=== PATIENT | female | born 1990 | race Caucasian/White ===

== ENCOUNTER 2020-01-06 17:10 | Outpatient (REF) | payer MEDICARE, MEDICAID, SELFPAY ==
[2020-01-06 18:12] LABS: Amphetamine Screen Urine Not Detected (Not Detect); Barbiturates, Urine Not Detected (Not Detect); Benzodiazepines Screen Urine Not Detected (Not Detect); Cannabinoid Screen Urine Not Detected (Not Detect); Cocaine Screen Urine Not Detected (Not Detect); Opiate Screen Urine Not Detected (Not Detect); Phencyclidine Screen Urine Not Detected (Not Detect)
== END 2020-01-06 17:11 | disposition home or self-care (01) ==
LOC: HO.LAB 17:10
PROVIDERS: PCP Internal Medicine; Visit Provider Internal Medicine
DX: F19.11 Other psychoactive substance abuse, in remission (principal); Z79.891 Long term (current) use of opiate analgesic; Z51.81 Encounter for therapeutic drug level monitoring
CPT/HCPCS: 36415; 80307

== ENCOUNTER → 2020-01-09 13:23 | Outpatient (BNVA) | payer MEDICARE, MEDICAID, SELFPAY | PROVIDERS: PCP Internal Medicine; Referring Provider Internal Medicine; Visit Provider Dietitian, Registered | DX: Z76.89 Persons encountering health services in other specified circumstances (principal) ==

== ENCOUNTER 2020-01-16 17:14 | Outpatient (REF) | payer MEDICARE, MEDICAID, SELFPAY ==
[2020-01-16 18:08] LABS: Amphetamine Screen Urine Not Detected (Not Detect); Barbiturates, Urine Not Detected (Not Detect); Benzodiazepines Screen Urine Not Detected (Not Detect); Cannabinoid Screen Urine Not Detected (Not Detect); Cocaine Screen Urine Not Detected (Not Detect); Opiate Screen Urine Not Detected (Not Detect); Phencyclidine Screen Urine Not Detected (Not Detect)
== END 2020-01-16 17:15 | disposition home or self-care (01) ==
LOC: HO.LAB 17:14
PROVIDERS: PCP Internal Medicine; Visit Provider Internal Medicine
DX: F19.11 Other psychoactive substance abuse, in remission (principal)
CPT/HCPCS: 80307

== ENCOUNTER 2020-01-23 15:22 | Outpatient (REF) | payer MEDICARE, MEDICAID, SELFPAY ==
[2020-01-23 16:40] LABS: Amphetamine Screen Urine Not Detected (Not Detect); Barbiturates, Urine Not Detected (Not Detect); Benzodiazepines Screen Urine Not Detected (Not Detect); Cannabinoid Screen Urine Not Detected (Not Detect); Cocaine Screen Urine Not Detected (Not Detect); Opiate Screen Urine Not Detected (Not Detect); Phencyclidine Screen Urine Not Detected (Not Detect)
== END 2020-01-23 15:23 | disposition home or self-care (01) ==
LOC: HO.LAB 15:22
PROVIDERS: PCP Internal Medicine; Visit Provider Internal Medicine
DX: Z87.898 Personal history of other specified conditions (principal)
CPT/HCPCS: 80307

== ENCOUNTER 2020-01-28 17:56 | Outpatient (REF) | payer MEDICARE, MEDICAID, SELFPAY | END 2020-01-28 17:57 | disposition home or self-care (01) | LOC: HO.LAB 17:56 | PROVIDERS: PCP Internal Medicine; Visit Provider Internal Medicine | DX: Z13.89 Encounter for screening for other disorder (principal) ==

== ENCOUNTER 2020-01-30 16:36 | Outpatient (REF) | payer MEDICARE, MEDICAID, SELFPAY ==
[2020-01-30 18:22] LABS: Amphetamine Screen Urine Not Detected (Not Detect); Barbiturates, Urine Not Detected (Not Detect); Benzodiazepines Screen Urine Not Detected (Not Detect); Cannabinoid Screen Urine Not Detected (Not Detect); Cocaine Screen Urine Not Detected (Not Detect); Opiate Screen Urine Not Detected (Not Detect); Phencyclidine Screen Urine Not Detected (Not Detect)
== END 2020-01-30 16:37 | disposition home or self-care (01) ==
LOC: HO.LABR 16:36
PROVIDERS: Visit Provider Internal Medicine
DX: Z87.898 Personal history of other specified conditions (principal)
CPT/HCPCS: 80307

== ENCOUNTER 2020-02-05 17:48 | Outpatient (REF) | payer MEDICARE, MEDICAID, SELFPAY ==
[2020-02-05 19:33] LABS: Amphetamine Screen Urine Not Detected (Not Detect); Barbiturates, Urine Not Detected (Not Detect); Benzodiazepines Screen Urine Not Detected (Not Detect); Cannabinoid Screen Urine Not Detected (Not Detect); Cocaine Screen Urine Not Detected (Not Detect); Opiate Screen Urine Not Detected (Not Detect); Phencyclidine Screen Urine Not Detected (Not Detect)
== END 2020-02-05 17:49 | disposition home or self-care (01) ==
LOC: HO.LABR 17:48
PROVIDERS: PCP Internal Medicine; Visit Provider Physician Assistant
DX: Z87.898 Personal history of other specified conditions (principal)
CPT/HCPCS: 80307

== ENCOUNTER 2020-02-14 16:11 | Outpatient (REF) | payer MEDICARE, MEDICAID, SELFPAY ==
[2020-02-14 17:13] LABS: Amphetamine Screen Urine Not Detected (Not Detect); Barbiturates, Urine Not Detected (Not Detect); Benzodiazepines Screen Urine Not Detected (Not Detect); Cannabinoid Screen Urine Not Detected (Not Detect); Cocaine Screen Urine Not Detected (Not Detect); Opiate Screen Urine Not Detected (Not Detect); Phencyclidine Screen Urine Not Detected (Not Detect)
== END 2020-02-14 16:12 | disposition home or self-care (01) ==
LOC: HO.LAB 16:11
PROVIDERS: PCP Internal Medicine; Visit Provider Internal Medicine
DX: Z79.899 Other long term (current) drug therapy (principal)
CPT/HCPCS: 80307

== ENCOUNTER 2020-02-26 16:15 | Outpatient (REF) | payer MEDICARE, MEDICAID, SELFPAY ==
[2020-02-26 17:10] LABS: Amphetamine Screen Urine Not Detected (Not Detect); Barbiturates, Urine Not Detected (Not Detect); Benzodiazepines Screen Urine Not Detected (Not Detect); Cannabinoid Screen Urine Not Detected (Not Detect); Cocaine Screen Urine Not Detected (Not Detect); Opiate Screen Urine Not Detected (Not Detect); Phencyclidine Screen Urine Not Detected (Not Detect)
== END 2020-02-26 16:16 | disposition home or self-care (01) ==
LOC: HO.LAB 16:15
PROVIDERS: PCP Internal Medicine; Visit Provider Internal Medicine
DX: Z87.898 Personal history of other specified conditions (principal)
CPT/HCPCS: 80307

== ENCOUNTER 2020-03-03 17:03 | Outpatient (REF) | payer MEDICARE, MEDICAID, SELFPAY ==
[2020-03-03 18:39] LABS: Amphetamine Screen Urine Not Detected (Not Detect); Barbiturates, Urine Not Detected (Not Detect); Benzodiazepines Screen Urine Not Detected (Not Detect); Cannabinoid Screen Urine Not Detected (Not Detect); Cocaine Screen Urine Not Detected (Not Detect); Opiate Screen Urine Not Detected (Not Detect); Phencyclidine Screen Urine Not Detected (Not Detect)
== END 2020-03-03 17:04 | disposition home or self-care (01) ==
LOC: HO.LABR 17:03
PROVIDERS: PCP Internal Medicine; Visit Provider Internal Medicine
DX: Z87.898 Personal history of other specified conditions (principal)
CPT/HCPCS: 80307

== ENCOUNTER 2020-03-11 10:59 | Outpatient (REF) | payer MEDICARE, MEDICAID, SELFPAY ==
[2020-03-11 13:19] LABS: Amphetamine Screen Urine Not Detected (Not Detect); Barbiturates, Urine Not Detected (Not Detect); Benzodiazepines Screen Urine Not Detected (Not Detect); Cannabinoid Screen Urine Not Detected (Not Detect); Cocaine Screen Urine Not Detected (Not Detect); Opiate Screen Urine Not Detected (Not Detect); Phencyclidine Screen Urine Not Detected (Not Detect)
== END 2020-03-11 11:00 | disposition home or self-care (01) ==
LOC: HO.LABR 10:59
PROVIDERS: PCP Internal Medicine; Visit Provider Internal Medicine
DX: Z87.898 Personal history of other specified conditions (principal)
CPT/HCPCS: 80307

== ENCOUNTER 2020-03-17 13:34 | Outpatient (REF) | payer MEDICARE, MEDICAID, SELFPAY ==
[2020-03-17 14:47] LABS: Amphetamine Screen Urine Not Detected (Not Detect); Barbiturates, Urine Not Detected (Not Detect); Benzodiazepines Screen Urine Not Detected (Not Detect); Cannabinoid Screen Urine Not Detected (Not Detect); Cocaine Screen Urine Not Detected (Not Detect); Opiate Screen Urine Not Detected (Not Detect); Phencyclidine Screen Urine Not Detected (Not Detect)
== END 2020-03-17 13:35 | disposition home or self-care (01) ==
LOC: HO.LABR 13:34
PROVIDERS: PCP Internal Medicine; Visit Provider Internal Medicine
DX: Z87.898 Personal history of other specified conditions (principal)
CPT/HCPCS: 80307

== ENCOUNTER 2020-03-24 06:30 | Outpatient (REF) | payer MEDICARE, MEDICAID, SELFPAY ==
[2020-03-24 07:35] LABS: Amphetamine Screen Urine Not Detected (Not Detect); Barbiturates, Urine Not Detected (Not Detect); Benzodiazepines Screen Urine Not Detected (Not Detect); Cannabinoid Screen Urine Not Detected (Not Detect); Cocaine Screen Urine Not Detected (Not Detect); Opiate Screen Urine Not Detected (Not Detect); Phencyclidine Screen Urine Not Detected (Not Detect)
== END 2020-03-24 06:31 | disposition home or self-care (01) ==
LOC: HO.LABR 06:30
PROVIDERS: PCP Internal Medicine; Visit Provider Internal Medicine
DX: Z87.898 Personal history of other specified conditions (principal)
CPT/HCPCS: 80307

== ENCOUNTER 2020-03-30 17:43 | Outpatient (REF) | payer MEDICARE, MEDICAID, SELFPAY ==
[2020-03-30 18:50] LABS: Amphetamine Screen Urine Not Detected (Not Detect); Barbiturates, Urine Not Detected (Not Detect); Benzodiazepines Screen Urine Not Detected (Not Detect); Cannabinoid Screen Urine Not Detected (Not Detect); Cocaine Screen Urine Not Detected (Not Detect); Opiate Screen Urine Not Detected (Not Detect); Phencyclidine Screen Urine Not Detected (Not Detect)
== END 2020-03-30 17:44 | disposition home or self-care (01) ==
LOC: HO.LABR 17:43
PROVIDERS: PCP Internal Medicine; Visit Provider Internal Medicine
DX: Z03.89 Encounter for observation for other suspected diseases and conditions ruled out (principal)
CPT/HCPCS: 80307

== ENCOUNTER 2020-04-06 17:22 | Outpatient (REF) | payer MEDICARE, MEDICAID, SELFPAY ==
[2020-04-06 18:21] LABS: Amphetamine Screen Urine Not Detected (Not Detect); Barbiturates, Urine Not Detected (Not Detect); Benzodiazepines Screen Urine Not Detected (Not Detect); Cannabinoid Screen Urine Not Detected (Not Detect); Cocaine Screen Urine Not Detected (Not Detect); Opiate Screen Urine Not Detected (Not Detect); Phencyclidine Screen Urine Not Detected (Not Detect)
== END 2020-04-06 17:23 | disposition home or self-care (01) ==
LOC: HO.LABR 17:22
PROVIDERS: PCP Internal Medicine; Visit Provider Internal Medicine
DX: Z87.898 Personal history of other specified conditions (principal)
CPT/HCPCS: 80307

== ENCOUNTER 2020-04-17 14:14 | Outpatient (REF) | payer MEDICARE, MEDICAID, SELFPAY ==
[2020-04-17 15:25] LABS: Amphetamine Screen Urine Not Detected (Not Detect); Barbiturates, Urine Not Detected (Not Detect); Benzodiazepines Screen Urine Not Detected (Not Detect); Cannabinoid Screen Urine Not Detected (Not Detect); Cocaine Screen Urine Not Detected (Not Detect); Opiate Screen Urine Not Detected (Not Detect); Phencyclidine Screen Urine Not Detected (Not Detect)
== END 2020-04-17 14:15 | disposition home or self-care (01) ==
LOC: HO.LABR 14:14
PROVIDERS: PCP Internal Medicine; Visit Provider Internal Medicine
DX: Z03.89 Encounter for observation for other suspected diseases and conditions ruled out (principal)
CPT/HCPCS: 80307

== ENCOUNTER 2020-04-20 15:35 | Outpatient (REF) | payer MEDICARE, MEDICAID, SELFPAY | END 2020-04-20 15:36 | disposition home or self-care (01) | LOC: HO.LABR 15:35 | PROVIDERS: PCP Internal Medicine; Visit Provider Internal Medicine | DX: Z13.89 Encounter for screening for other disorder (principal) | CPT/HCPCS: 80307 ==

== ENCOUNTER 2020-05-01 12:51 | Outpatient (REF) | payer MEDICARE, MEDICAID, SELFPAY ==
[2020-05-01 14:21] LABS: Amphetamine Screen Urine Not Detected (Not Detect); Barbiturates, Urine Not Detected (Not Detect); Benzodiazepines Screen Urine Not Detected (Not Detect); Cannabinoid Screen Urine Not Detected (Not Detect); Cocaine Screen Urine Not Detected (Not Detect); Opiate Screen Urine Not Detected (Not Detect); Phencyclidine Screen Urine Not Detected (Not Detect)
== END 2020-05-01 12:52 | disposition home or self-care (01) ==
LOC: HO.LABR 12:51
PROVIDERS: Visit Provider Internal Medicine
DX: Z03.89 Encounter for observation for other suspected diseases and conditions ruled out (principal)
CPT/HCPCS: 80307

== ENCOUNTER 2020-05-04 08:18 | Outpatient (REF) | payer MEDICARE, MEDICAID, SELFPAY ==
[2020-05-04 09:23] LABS: Amphetamine Screen Urine Not Detected (Not Detect); Barbiturates, Urine Not Detected (Not Detect); Benzodiazepines Screen Urine Not Detected (Not Detect); Cannabinoid Screen Urine Not Detected (Not Detect); Cocaine Screen Urine Not Detected (Not Detect); Opiate Screen Urine Not Detected (Not Detect); Phencyclidine Screen Urine Not Detected (Not Detect)
== END 2020-05-04 08:19 | disposition home or self-care (01) ==
LOC: HO.LABR 08:18
PROVIDERS: Visit Provider Internal Medicine
DX: Z03.89 Encounter for observation for other suspected diseases and conditions ruled out (principal)
CPT/HCPCS: 80307

== ENCOUNTER 2020-05-13 08:18 | Outpatient (REF) | payer MEDICARE, MEDICAID, SELFPAY ==
[2020-05-13 10:19] LABS: Amphetamine Screen Urine Not Detected (Not Detect); Barbiturates, Urine Not Detected (Not Detect); Benzodiazepines Screen Urine Not Detected (Not Detect); Cannabinoid Screen Urine Not Detected (Not Detect); Cocaine Screen Urine Not Detected (Not Detect); Opiate Screen Urine Not Detected (Not Detect); Phencyclidine Screen Urine Not Detected (Not Detect)
== END 2020-05-13 08:19 | disposition home or self-care (01) ==
LOC: HO.LABR 08:18
PROVIDERS: PCP Internal Medicine; Visit Provider Internal Medicine
DX: Z03.89 Encounter for observation for other suspected diseases and conditions ruled out (principal)
CPT/HCPCS: 80307

== ENCOUNTER 2020-05-19 11:26 | Outpatient (REF) | payer MEDICARE, MEDICAID, SELFPAY ==
[2020-05-19 13:19] LABS: Amphetamine Screen Urine Not Detected (Not Detect); Barbiturates, Urine Not Detected (Not Detect); Benzodiazepines Screen Urine Not Detected (Not Detect); Cannabinoid Screen Urine Not Detected (Not Detect); Cocaine Screen Urine Not Detected (Not Detect); Opiate Screen Urine Not Detected (Not Detect); Phencyclidine Screen Urine Not Detected (Not Detect)
== END 2020-05-19 11:27 | disposition home or self-care (01) ==
LOC: HO.LAB 11:26
PROVIDERS: PCP Internal Medicine; Visit Provider Internal Medicine
DX: Z03.89 Encounter for observation for other suspected diseases and conditions ruled out (principal)
CPT/HCPCS: 80307

== ENCOUNTER 2020-05-25 13:32 | Outpatient (REF) | payer MEDICARE, MEDICAID, SELFPAY ==
[2020-05-25 15:12] LABS: Amphetamine Screen Urine Not Detected (Not Detect); Barbiturates, Urine Not Detected (Not Detect); Benzodiazepines Screen Urine Not Detected (Not Detect); Cannabinoid Screen Urine Not Detected (Not Detect); Cocaine Screen Urine Not Detected (Not Detect); Opiate Screen Urine Not Detected (Not Detect); Phencyclidine Screen Urine Not Detected (Not Detect)
== END 2020-05-25 13:33 | disposition home or self-care (01) ==
LOC: HO.LABR 13:32
PROVIDERS: PCP Internal Medicine; Visit Provider Internal Medicine
DX: Z03.89 Encounter for observation for other suspected diseases and conditions ruled out (principal)
CPT/HCPCS: 80307

== ENCOUNTER 2020-06-02 11:40 | Outpatient (REF) | payer MEDICARE, MEDICAID, SELFPAY ==
[2020-06-02 13:03] LABS: Amphetamine Screen Urine Not Detected (Not Detect); Barbiturates, Urine Not Detected (Not Detect); Cannabinoid Screen Urine Not Detected (Not Detect); Cocaine Screen Urine Not Detected (Not Detect); Opiate Screen Urine Not Detected (Not Detect); Phencyclidine Screen Urine Not Detected (Not Detect)
[2020-06-02 13:07] LABS: Benzodiazepines Screen Urine Not Detected (Not Detect)
== END 2020-06-02 11:41 | disposition home or self-care (01) ==
LOC: HO.LABR 11:40
PROVIDERS: PCP Internal Medicine; Visit Provider Internal Medicine
DX: Z03.89 Encounter for observation for other suspected diseases and conditions ruled out (principal)
CPT/HCPCS: 80307

== ENCOUNTER 2020-06-12 09:13 | Outpatient (REF) | payer MEDICARE, MEDICAID, SELFPAY ==
[2020-06-12 10:46] LABS: Amphetamine Screen Urine Not Detected (Not Detect); Barbiturates, Urine Not Detected (Not Detect); Benzodiazepines Screen Urine Not Detected (Not Detect); Cannabinoid Screen Urine Not Detected (Not Detect); Cocaine Screen Urine Not Detected (Not Detect); Opiate Screen Urine Not Detected (Not Detect); Phencyclidine Screen Urine Not Detected (Not Detect)
== END 2020-06-12 09:14 | disposition home or self-care (01) ==
LOC: HO.LABR 09:13
PROVIDERS: PCP Internal Medicine; Visit Provider Internal Medicine
DX: Z03.89 Encounter for observation for other suspected diseases and conditions ruled out (principal)
CPT/HCPCS: 80307

== ENCOUNTER 2020-06-19 09:42 | Outpatient (REF) | payer MEDICARE, MEDICAID, SELFPAY ==
[2020-06-19 11:24] LABS: Amphetamine Screen Urine Not Detected (Not Detect); Barbiturates, Urine Not Detected (Not Detect); Benzodiazepines Screen Urine Not Detected (Not Detect); Cannabinoid Screen Urine Not Detected (Not Detect); Cocaine Screen Urine Not Detected (Not Detect); Opiate Screen Urine Not Detected (Not Detect); Phencyclidine Screen Urine Not Detected (Not Detect)
== END 2020-06-19 09:43 | disposition home or self-care (01) ==
LOC: HO.LABR 09:42
PROVIDERS: PCP Internal Medicine; Visit Provider Internal Medicine
DX: Z03.89 Encounter for observation for other suspected diseases and conditions ruled out (principal)
CPT/HCPCS: 80307

== ENCOUNTER 2020-06-24 11:56 | Outpatient (REF) | payer MEDICARE, MEDICAID, SELFPAY ==
[2020-06-24 14:50] LABS: Amphetamine Screen Urine Not Detected (Not Detect); Barbiturates, Urine Not Detected (Not Detect); Benzodiazepines Screen Urine Not Detected (Not Detect); Cannabinoid Screen Urine Not Detected (Not Detect); Cocaine Screen Urine Not Detected (Not Detect); Opiate Screen Urine Not Detected (Not Detect); Phencyclidine Screen Urine Not Detected (Not Detect)
== END 2020-06-24 11:57 | disposition home or self-care (01) ==
LOC: HO.LABR 11:56
PROVIDERS: PCP Internal Medicine; Visit Provider Internal Medicine
DX: Z03.89 Encounter for observation for other suspected diseases and conditions ruled out (principal)
CPT/HCPCS: 80307

== ENCOUNTER 2020-06-29 11:11 | Outpatient (REF) | payer MEDICARE, MEDICAID, SELFPAY ==
[2020-06-29 13:32] LABS: Amphetamine Screen Urine Not Detected (Not Detect); Barbiturates, Urine Not Detected (Not Detect); Benzodiazepines Screen Urine Not Detected (Not Detect); Cannabinoid Screen Urine Not Detected (Not Detect); Cocaine Screen Urine Not Detected (Not Detect); Opiate Screen Urine Not Detected (Not Detect); Phencyclidine Screen Urine Not Detected (Not Detect)
== END 2020-06-29 11:12 | disposition home or self-care (01) ==
LOC: HO.LABR 11:11
PROVIDERS: PCP Internal Medicine; Visit Provider Internal Medicine
DX: Z03.89 Encounter for observation for other suspected diseases and conditions ruled out (principal)
CPT/HCPCS: 80307

== ENCOUNTER 2020-07-07 12:10 | Outpatient (REF) | payer MEDICARE, MEDICAID, SELFPAY ==
[2020-07-07 13:48] LABS: Amphetamine Screen Urine Not Detected (Not Detect); Barbiturates, Urine Not Detected (Not Detect); Benzodiazepines Screen Urine Not Detected (Not Detect); Cannabinoid Screen Urine Not Detected (Not Detect); Cocaine Screen Urine Not Detected (Not Detect); Opiate Screen Urine Not Detected (Not Detect); Phencyclidine Screen Urine Not Detected (Not Detect)
== END 2020-07-07 12:11 | disposition home or self-care (01) ==
LOC: HO.LABR 12:10
PROVIDERS: PCP Internal Medicine; Visit Provider Internal Medicine
DX: Z03.89 Encounter for observation for other suspected diseases and conditions ruled out (principal)
CPT/HCPCS: 80307

== ENCOUNTER 2020-07-17 09:19 | Outpatient (REF) | payer MEDICARE, MEDICAID, SELFPAY ==
[2020-07-17 10:47] LABS: Amphetamine Screen Urine Not Detected (Not Detect); Barbiturates, Urine Not Detected (Not Detect); Benzodiazepines Screen Urine Not Detected (Not Detect); Cannabinoid Screen Urine Not Detected (Not Detect); Cocaine Screen Urine Not Detected (Not Detect); Opiate Screen Urine Not Detected (Not Detect); Phencyclidine Screen Urine Not Detected (Not Detect)
== END 2020-07-17 09:20 | disposition home or self-care (01) ==
LOC: HO.LABR 09:19
PROVIDERS: PCP Internal Medicine; Visit Provider Internal Medicine
DX: Z03.89 Encounter for observation for other suspected diseases and conditions ruled out (principal)
CPT/HCPCS: 80307

== ENCOUNTER 2020-07-24 12:21 | Outpatient (REF) | payer MEDICARE, MEDICAID, SELFPAY ==
[2020-07-24 14:59] LABS: Amphetamine Screen Urine Not Detected (Not Detect); Barbiturates, Urine Not Detected (Not Detect); Benzodiazepines Screen Urine Not Detected (Not Detect); Cannabinoid Screen Urine Not Detected (Not Detect); Cocaine Screen Urine Not Detected (Not Detect); Opiate Screen Urine Not Detected (Not Detect); Phencyclidine Screen Urine Not Detected (Not Detect)
== END 2020-07-24 12:22 | disposition home or self-care (01) ==
LOC: HO.LABR 12:21
PROVIDERS: Visit Provider Internal Medicine
DX: Z03.89 Encounter for observation for other suspected diseases and conditions ruled out (principal)
CPT/HCPCS: 80307

== ENCOUNTER 2020-07-28 06:09 | Outpatient (REF) | payer MEDICARE, MEDICAID, SELFPAY ==
[2020-07-28 09:17] LABS: Amphetamine Screen Urine Not Detected (Not Detect); Barbiturates, Urine Not Detected (Not Detect); Benzodiazepines Screen Urine Not Detected (Not Detect); Cannabinoid Screen Urine Not Detected (Not Detect); Cocaine Screen Urine Not Detected (Not Detect); Opiate Screen Urine Not Detected (Not Detect); Phencyclidine Screen Urine Not Detected (Not Detect)
== END 2020-07-28 06:10 | disposition home or self-care (01) ==
LOC: HO.LABR 06:09
PROVIDERS: PCP Internal Medicine; Visit Provider Internal Medicine
DX: Z03.89 Encounter for observation for other suspected diseases and conditions ruled out (principal)
CPT/HCPCS: 80307

== ENCOUNTER 2020-08-07 09:14 | Outpatient (REF) | payer MEDICARE, MEDICAID, SELFPAY ==
[2020-08-07 10:45] LABS: Amphetamine Screen Urine Not Detected (Not Detect); Barbiturates, Urine Not Detected (Not Detect); Benzodiazepines Screen Urine Not Detected (Not Detect); Cannabinoid Screen Urine Not Detected (Not Detect); Cocaine Screen Urine Not Detected (Not Detect); Opiate Screen Urine Not Detected (Not Detect); Phencyclidine Screen Urine Not Detected (Not Detect)
== END 2020-08-07 09:15 | disposition home or self-care (01) ==
LOC: HO.LABR 09:14
PROVIDERS: PCP Internal Medicine; Visit Provider Internal Medicine
DX: Z03.89 Encounter for observation for other suspected diseases and conditions ruled out (principal)
CPT/HCPCS: 80307

== ENCOUNTER 2020-08-13 14:26 | Outpatient (REF) | payer MEDICARE, MEDICAID, SELFPAY ==
[2020-08-13 15:42] LABS: Amphetamine Screen Urine Not Detected (Not Detect); Barbiturates, Urine Not Detected (Not Detect); Benzodiazepines Screen Urine Not Detected (Not Detect); Cannabinoid Screen Urine Not Detected (Not Detect); Cocaine Screen Urine Not Detected (Not Detect); Opiate Screen Urine Not Detected (Not Detect); Phencyclidine Screen Urine Not Detected (Not Detect)
== END 2020-08-13 14:27 | disposition home or self-care (01) ==
LOC: HO.LABR 14:26
PROVIDERS: PCP Internal Medicine; Visit Provider Internal Medicine
DX: Z03.89 Encounter for observation for other suspected diseases and conditions ruled out (principal)
CPT/HCPCS: 80307

== ENCOUNTER 2020-08-20 10:10 | Outpatient (REF) | payer MEDICARE, MEDICAID, SELFPAY ==
[2020-08-20 11:24] LABS: Amphetamine Screen Urine Not Detected (Not Detect); Barbiturates, Urine Not Detected (Not Detect); Benzodiazepines Screen Urine Not Detected (Not Detect); Cannabinoid Screen Urine Not Detected (Not Detect); Cocaine Screen Urine Not Detected (Not Detect); Opiate Screen Urine Not Detected (Not Detect); Phencyclidine Screen Urine Not Detected (Not Detect)
== END 2020-08-20 10:11 | disposition home or self-care (01) ==
LOC: HO.LABR 10:10
PROVIDERS: PCP Internal Medicine; Visit Provider Internal Medicine
DX: Z03.89 Encounter for observation for other suspected diseases and conditions ruled out (principal)
CPT/HCPCS: 80307

== ENCOUNTER 2020-08-28 10:42 | Outpatient (REF) | payer MEDICARE, MEDICAID, SELFPAY ==
[2020-08-28 12:19] LABS: Amphetamine Screen Urine Not Detected (Not Detect); Barbiturates, Urine Not Detected (Not Detect); Benzodiazepines Screen Urine Not Detected (Not Detect); Cannabinoid Screen Urine Not Detected (Not Detect); Cocaine Screen Urine Not Detected (Not Detect); Opiate Screen Urine Not Detected (Not Detect); Phencyclidine Screen Urine Not Detected (Not Detect)
== END 2020-08-28 10:43 | disposition home or self-care (01) ==
LOC: HO.LABR 10:42
PROVIDERS: PCP Internal Medicine; Visit Provider Internal Medicine
DX: Z03.89 Encounter for observation for other suspected diseases and conditions ruled out (principal)
CPT/HCPCS: 80307

== ENCOUNTER 2020-09-21 17:00 | Outpatient (REF) | payer MEDICARE, MEDICAID, SELFPAY ==
[2020-09-21 18:35] LABS: Amphetamine Screen Urine Not Detected (Not Detect); Barbiturates, Urine Not Detected (Not Detect); Benzodiazepines Screen Urine Not Detected (Not Detect); Cannabinoid Screen Urine Not Detected (Not Detect); Cocaine Screen Urine Not Detected (Not Detect); Opiate Screen Urine Not Detected (Not Detect); Phencyclidine Screen Urine Not Detected (Not Detect)
== END 2020-09-21 17:01 | disposition home or self-care (01) ==
LOC: HO.LABR 17:00
PROVIDERS: PCP Internal Medicine; Visit Provider Internal Medicine
DX: Z03.89 Encounter for observation for other suspected diseases and conditions ruled out (principal); Z87.898 Personal history of other specified conditions
CPT/HCPCS: 80307

== ENCOUNTER 2020-11-03 09:28 | Outpatient (REF) | payer MEDICARE, MEDICAID, SELFPAY ==
--- NOTE | 2020-11-03 16:18 | PFT_ITS ---
FLOWS: FEV1 101% of predicted at 3.39 L. FVC 105% of predicted at 4.24 L. FEV1 to FVC ratio of 0.80. No bronchodilator response except in small to medium airways. LUNG VOLUMES: Total lung capacity 99% of predicted at 5.30 L. Residual volume 80% of predicted at 1.23 L. Slow vital capacity 106% of predicted at 4.07 L. Expiratory reserve volume 17% of predicted at 0.25 L. Diffusion capacity is normal. IMPRESSION: No obstructive or restrictive ventilatory defect. No bronchodilator response except in small to medium airways. Decreased expiratory reserve volume suggests extrathoracic restriction likely secondary to abdominal obesity. MD HELLEN Davidson/MODL / [id number]
== END 2020-11-03 09:29 | disposition home or self-care (01) ==
LOC: HO.RESP 09:28
PROVIDERS: PCP Internal Medicine; Visit Provider Internal Medicine
DX: R06.02 Shortness of breath (principal)
CPT/HCPCS: 94060; 94727; 94729

== ENCOUNTER 2021-02-15 07:59 | Outpatient (REF) | payer MEDICARE, MEDICAID, SELFPAY ==
[2021-02-15 09:05] LABS: Alanine Aminotransferase 69 U/L (0-31); Albumin Level 4.3 g/dL (3.5-5.0); Alkaline Phosphatase 84 U/L (39-117); Anion Gap 11 (12-20); Aspartate Amino Transferase 37 U/L (5-31); Bilirubin Total 0.5 mg/dL (0.0-1.0); Blood Urea Nitrogen 10 mg/dL (9-16); Calcium 9.5 mg/dL (8.4-10.2); Carbon Dioxide 27 mmol/L (22-29); Chloride 105 mmol/L (96-108); Cholesterol 172 mg/dL; Estimated Glomerular Filt Rate > 60; Glucose Fasting 103 mg/dL (60-99); HDL Cholesterol 38 mg/dL; LDL Cholesterol Calculated 111 mg/dl; Potassium 4.6 mmol/L (3.3-5.1); Sodium 138 mmol/L (135-145); Triglycerides 115 mg/dL
[2021-02-19 15:20] LABS: Vitamin D 25-OH, D2 <4 ng/mL; Vitamin D 25-OH, D3 33 ng/mL; Vitamin D 25-OH, Total 33 ng/mL (30-100)
== END 2021-02-15 08:00 | disposition home or self-care (01) ==
LOC: HO.LAB 07:59
PROVIDERS: PCP Internal Medicine; Visit Provider Internal Medicine
DX: E78.5 Hyperlipidemia, unspecified (principal); E55.9 Vitamin D deficiency, unspecified; R06.02 Shortness of breath
CPT/HCPCS: 36415; 80053; 80061; 82306

== ENCOUNTER 2021-03-01 12:00 | Outpatient (REF) | payer MEDICARE, MEDICAID, SELFPAY | END 2021-03-01 12:01 | disposition home or self-care (01) | LOC: HO.LAB 12:00 | PROVIDERS: PCP Student in an Organized Health Care Education/Training Program; Visit Provider Internal Medicine | DX: Z20.822 Contact with and (suspected) exposure to COVID-19 (principal) | CPT/HCPCS: C9803; U0003; U0005 ==

== ENCOUNTER → 2021-06-28 11:23 | Outpatient (BNVA) | payer MEDICARE, MEDICAID, SELFPAY | PROVIDERS: PCP Internal Medicine; Referring Provider Internal Medicine; Visit Provider Internal Medicine Gastroenterology | DX: R74.01 Elevation of levels of liver transaminase levels (principal); E66.01 Morbid (severe) obesity due to excess calories; Z68.43 Body mass index [BMI] 50.0-59.9, adult | CPT/HCPCS: 99202 ==

== ENCOUNTER 2021-11-25 11:01 | Outpatient (REF) | payer MEDICARE, MEDICAID, SELFPAY ==
[2021-11-25 14:57] LABS: MANUAL DIFF FLAG NO
[2021-11-25 15:52] LABS: Basophils Absolute Auto 0.1 X10*3/uL (0.0-0.2); Basophils Percent Auto 0.5 % (0-2); Eosinophils Absolute Auto 0.1 X10*3/uL (0.0-0.4); Eosinophils Percent Auto 1.1 % (0-4); Hematocrit 48.9 % (37.0-47.0); Hemoglobin 16.8 g/dl (12.0-16.0); Imm Gran Abs Auto 0.04 X10*3/uL (0.00-0.03); Imm Gran Pct Auto 0.4 % (0.0-0.4); Lymphocytes Absolute Auto 2.4 X10*3/uL (1.2-4.9); Lymphocytes Percent Auto 23.5 % (20-40); Mean Corpuscular HGB Conc 34.4 g/dl (31.0-35.0); Mean Corpuscular Hemoglobin 31.9 pg (27.0-33.0); Mean Corpuscular Volume 92.8 fL (80.0-98.0); Mean Platelet Volume 11.6 fL (9.4-12.3); Monocytes Absolute Auto 0.7 X10*3/uL (0.1-1.2); Monocytes Percent Auto 6.6 % (2-11); Neutrophils Percent Auto 67.9 % (45-73); Platelet Count 284 X10*3/uL (160-400); Red Blood Count 5.27 X10*6/uL (4.20-5.50); Red Cell Distribution Width 12.2 % (11.0-16.0); White Blood Count 10.3 X10*3/uL (4.8-10.8)
[2021-11-25 15:53] LABS: INTERNATIONAL NORM RATIO 1.1 (0.9-1.1); Prothrombin Time 12.3 SEC (10.0-13.1)
[2021-11-25 16:18] LABS: Alanine Aminotransferase 43 U/L (0-31); Albumin Level 4.7 g/dL (3.5-5.0); Alkaline Phosphatase 84 U/L (39-117); Anion Gap 18 (12-20); Aspartate Amino Transferase 30 U/L (5-31); Bilirubin Total 0.6 mg/dL (0.0-1.0); Blood Urea Nitrogen 9 mg/dL (9-16); Calcium 9.7 mg/dL (8.4-10.2); Carbon Dioxide 20 mmol/L (22-29); Chloride 108 mmol/L (96-108); Estimated Glomerular Filt Rate > 60; Glucose Random 89 mg/dL (60-115); Potassium 3.6 mmol/L (3.3-5.1); Sodium 142 mmol/L (135-145); Total Protein 7.7 g/dL (6.5-8.0)
[2021-11-25 16:45] LABS: Ferritin 138 ng/mL (10-122); TSH reflex Free T4 1.72 uIU/mL (0.32-4.0); Vitamin D 25-OH Total 61.9 ng/mL (>30)
[2021-11-26 02:35] LABS: CT PCR NOT DETECTED (Not Detect.); NG PCR NOT DETECTED (Not Detect.)
[2021-11-26 05:24] LABS: HBS Num1 11.49 mIU/mL (0-7.99); HBc Num1 0.07 S/CO (0.00-0.79); HBsAGNum1 0.23 S/CO (0.00-0.99); Hepatitis A Antibody IgM 0.15 Index (0-0.79); Hepatitis B Core Antibody Nonreactive (Nonreactive); Hepatitis B Surface Antigen Negative (Negative); ~HepC Num1 0.07 S/CO (0.00-0.79); ~Hepatitis A Antibody IgM Nonreactive (Nonreactive); ~Hepatitis C Antibody Nonreactive (Nonreactive)
[2021-11-26 05:27] LABS: HBsAGNum1 0.36 S/CO (0.00-0.99); HIV AB/AG Nonreactive (Nonreactive); HIV Num 1 0.06 S/CO (0.00-0.99); Hepatitis B Surface Antigen Negative (Negative); ~HepC Num1 0.08 S/CO (0.00-0.79); ~Hepatitis C Antibody Nonreactive (Nonreactive)
[2021-11-26 06:38] LABS: Syphilis Screen Nonreactive (Nonreactive)
[2021-11-26 07:47] LABS: HBS Num2 11.82 mIU/mL (0-7.99); HBS Num3 11.68 mIU/mL (0-7.99); ~Hepatitis B Surface Antibody GRAYZONE (Nonreactive)
[2021-11-26 13:07] LABS: BV Int Neg Control Negative (Negative); BV Int Pos Control Positive (Positive)
[2021-11-27 14:02] LABS: Immunoglobulin G 1081 mg/dL (600-1640)
[2021-11-27 14:17] LABS: Alpha 1 Anti-trypsin 144 mg/dL (83-199); Ceruloplasmin 29 mg/dL (18-53)
[2021-11-28 23:41] LABS: Liver Kidney Microsomal Ab <=20.0 U (<=20.0)
[2021-11-30 02:36] LABS: Zinc 65 mcg/dL (60-130)
[2021-11-30 13:33] LABS: Soluble Liver Ag Autoantibody <20.1 U (0.0-20.0)
[2021-11-30 13:36] LABS: Smooth Muscle Antibody <20 U (<20)
[2021-11-30 14:37] LABS: Aldolase 6.2 U/L (<=8.1)
[2021-11-30 16:31] LABS: Gliadin Deamidated IgA Ab <1.0 U/mL; Gliadin Deamidated IgG Ab <1.0 U/mL; Transglutaminase Ab IgG <1.0 U/mL; Transglutaminase IgA <1.0 U/mL
[2021-11-30 19:02] LABS: Vitamin A 53 mcg/dL (38-98)
[2021-12-01 11:47] LABS: Anti Nuclear Antibody Screen NEGATIVE (NEGATIVE)
[2021-12-02 21:52] LABS: HPV 16 RNA NOT DETECTED (NOT DETECTED); HPV mRNA E6/E7 rflx Detected (Not Detected)
== END 2021-11-25 11:02 | disposition home or self-care (01) ==
LOC: HO.LAB 11:01
PROVIDERS: Internal Medicine Gastroenterology; PCP Internal Medicine; Visit Provider Advanced Practice Midwife
DX: Z01.419 Encounter for gynecological examination (general) (routine) without abnormal findings (principal); Z11.51 Encounter for screening for human papillomavirus (HPV); Z11.3 Encounter for screening for infections with a predominantly sexual mode of transmission; Z11.4 Encounter for screening for human immunodeficiency virus [HIV]; E66.01 Morbid (severe) obesity due to excess calories; R74.01 Elevation of levels of liver transaminase levels; K52.839 Microscopic colitis, unspecified; K75.81 Nonalcoholic steatohepatitis (NASH); R79.82 Elevated C-reactive protein (CRP); G89.29 Other chronic pain; R10.33 Periumbilical pain; E04.1 Nontoxic single thyroid nodule
CPT/HCPCS: 36415; 80053; 82085; 82103; 82306; 82390; 82550; 82728; 82784; 83520; 84443; 84590; 84630; 85025; 85610; 86015; 86038; 86039; 86258; 86364; 86376; 86704; 86706; 86709; 86780; 86803; 87340; 87389; 87480; 87491; 87510; 87591; 87624; 87625; 87660; 88142

== ENCOUNTER → 2022-08-25 12:57 | Outpatient (BNVA) | payer MEDICARE, MEDICAID, SELFPAY | PROVIDERS: PCP Internal Medicine; Visit Provider Physician Assistant Surgical ==

== ENCOUNTER → 2022-08-31 08:33 | Outpatient (BNVA) | payer MEDICARE, MEDICAID, SELFPAY | PROVIDERS: PCP Internal Medicine; Visit Provider Surgery | DX: E66.01 Morbid (severe) obesity due to excess calories (principal); Z68.41 Body mass index [BMI] 40.0-44.9, adult; K21.9 Gastro-esophageal reflux disease without esophagitis; F31.9 Bipolar disorder, unspecified; J45.909 Unspecified asthma, uncomplicated; F90.9 Attention-deficit hyperactivity disorder, unspecified type; F43.10 Post-traumatic stress disorder, unspecified | CPT/HCPCS: Q3014 ==

== ENCOUNTER 2022-09-02 08:02 | Outpatient (REF) | payer MEDICARE, MEDICAID, SELFPAY ==
--- NOTE | ~2022-09-02 | FL_ITS ---
EXAMINATION: XR FLUOROSCOPY UPPER GI WITH AIR CLINICAL INFORMATION: Morbid/severe obesity due to excess calories. COMPARISON: None available. TECHNIQUE: Routine upper GI air-contrast study was performed. FINDINGS: Following oral administration of thick barium and effervescent granules, there is normal propagation of bolus from the oral cavity through the pharynx, esophagus into stomach without any evidence of obstruction, narrowing or stricture. On placing patient supine and prone lying, the course, caliber and peristalsis of the stomach and duodenal bulb are normal. There is focal gastric mucosal erosive change in the mid abdomen. The rest of the gastric and duodenal mucosa are unremarkable. There is mild gastroesophageal reflux without hiatal hernia. FLUOROSCOPY TIME: 2.9 DOSE AREA PRODUCT: 49.963 uGy-m2 (microgray-meter squared) FL/FL upper GI w air IMPRESSION: Focal gastric erosive changes mid stomach. Mild gastroesophageal reflux without hiatal hernia
--- NOTE | ~2022-09-02 | XR_ITS ---
EXAMINATION: XR CHEST CLINICAL INFORMATION: Obesity COMPARISON: Previous chest x-ray December 2019 TECHNIQUE: 2 views of the chest were obtained. FINDINGS: No significant abnormality is noted involving the heart, lungs, mediastinum, bony thorax or soft tissues. XR/XR chest 2V IMPRESSION: Unremarkable examination.
[2022-09-02 08:14] LABS: MANUAL DIFF FLAG NO
--- NOTE | 2022-09-02 08:15 | ECG_ITS ---
Test Reason : E66.01 Blood Pressure : / mmHG Vent. Rate : 080 BPM Atrial Rate : 080 BPM P-R Int : 154 ms QRS Dur : 094 ms QT Int : 388 ms P-R-T Axes : 038 014 021 degrees QTc Int : 447 ms Normal sinus rhythm Normal ECG When compared with ECG of 12-DEC-2019 12:30, No significant change was found Referred By: Amol Brink Electronically Signed By:BARRON SELF MD
[2022-09-02 08:50] LABS: Basophils Absolute Auto 0.1 X10*3/uL (0.0-0.2); Basophils Percent Auto 0.6 % (0-2); Eosinophils Absolute Auto 0.1 X10*3/uL (0.0-0.4); Eosinophils Percent Auto 1.1 % (0-4); Hematocrit 44.3 % (37.0-47.0); Hemoglobin 14.9 g/dl (12.0-16.0); Imm Gran Abs Auto 0.05 X10*3/uL (0.00-0.03); Imm Gran Pct Auto 0.6 % (0.0-0.4); Lymphocytes Absolute Auto 2.1 X10*3/uL (1.2-4.9); Lymphocytes Percent Auto 24.9 % (20-40); Mean Corpuscular HGB Conc 33.6 g/dl (31.0-35.0); Mean Corpuscular Hemoglobin 30.9 pg (27.0-33.0); Mean Corpuscular Volume 91.9 fL (80.0-98.0); Mean Platelet Volume 10.7 fL (9.4-12.3); Monocytes Absolute Auto 0.6 X10*3/uL (0.1-1.2); Monocytes Percent Auto 7.7 % (2-11); Neutrophils Absolute Auto 5.4 x10*3/uL (2.0-8.3); Neutrophils Percent Auto 65.1 % (45-73); Platelet Count 274 X10*3/uL (160-400); Red Blood Count 4.82 X10*6/uL (4.20-5.50); Red Cell Distribution Width 12.6 % (11.0-16.0); White Blood Count 8.3 X10*3/uL (4.8-10.8)
[2022-09-02 08:58] LABS: Estimated Average Glucose 91 mg/dL; Hemoglobin A1c % 4.8 %
[2022-09-02 09:59] LABS: Alanine Aminotransferase 29 U/L (0-31); Albumin Level 4.4 g/dL (3.5-5.0); Alkaline Phosphatase 68 U/L (39-117); Anion Gap 14 (12-20); Aspartate Amino Transferase 21 U/L (5-31); Bilirubin Total 0.6 mg/dL (0.0-1.0); Blood Urea Nitrogen 12 mg/dL (9-16); C Reactive Protein 0.27 mg/dL (< or = 0.50); Calcium 9.6 mg/dL (8.4-10.2); Carbon Dioxide 22 mmol/L (22-29); Chloride 109 mmol/L (96-108); Cholesterol 157 mg/dL; Estimated Glomerular Filt Rate > 60; Glucose Random 96 mg/dL (60-115); HDL Cholesterol 45 mg/dL; Iron 77 mcg/dL (30-160); LDL Cholesterol Calculated 98 mg/dl; Percent Iron Saturation 29 % (15-50); Potassium 4.2 mmol/L (3.3-5.1); Sodium 141 mmol/L (135-145); Total Iron Binding Capacity 263 mcg/dL (228-428); Total Protein 7.1 g/dL (6.5-8.0); Triglycerides 70 mg/dL; Unsaturated Iron Binding 186 ug/dL
[2022-09-02 10:12] LABS: Ferritin 102 ng/mL (10-122); Folate 13.7 ng/mL (> or = 4.0); TSH reflex Free T4 2.13 uIU/mL (0.32-4.0); Vitamin B12 316 pg/mL (200-900); Vitamin D 25-OH Total 37.7 ng/mL (>30)
[2022-09-02 10:44] LABS: Insulin 14 uU/mL (2-29)
[2022-09-05 14:18] LABS: Calcium (PTHI) 9.6 mg/dL (8.6-10.2); PTHI 52 pg/mL (16-77)
[2022-09-06 13:18] LABS: Zinc 73 mcg/dL (60-130)
[2022-09-07 19:54] LABS: Vitamin A 49 mcg/dL (38-98)
[2022-09-10 03:42] LABS: Vitamin B1 14 nmol/L (8-30)
== END 2022-09-02 08:03 | disposition home or self-care (01) ==
LOC: HO.LAB 08:02
PROVIDERS: PCP Internal Medicine; Visit Provider Surgery
DX: E66.01 Morbid (severe) obesity due to excess calories (principal); Z68.42 Body mass index [BMI] 45.0-49.9, adult; K21.9 Gastro-esophageal reflux disease without esophagitis; J45.909 Unspecified asthma, uncomplicated
CPT/HCPCS: 36415; 71046; 74246; 80053; 80061; 82306; 82607; 82728; 82746; 83036; 83525; 83540; 83970; 84425; 84443; 84590; 84630; 85025; 86140; 93005

== ENCOUNTER → 2022-09-08 14:00 | Outpatient (BNVA) | payer MEDICARE, MEDICAID, SELFPAY | PROVIDERS: PCP Internal Medicine; Visit Provider Counselor Mental Health ==

== ENCOUNTER 2022-09-20 08:17 | Outpatient (REF) | payer MEDICARE, MEDICAID, SELFPAY ==
--- NOTE | ~2022-09-20 | US_ITS ---
EXAMINATION: US COMPLETE ABDOMEN WITH LIVER ELASTOGRAPHY CLINICAL INFORMATION: Obesity. COMPARISON: None available. TECHNIQUE: Real-time imaging of the abdominal viscera. Noninvasive ultrasound liver fibrosis assessment is performed using Virgie ElastPQ point quantification shear wave elastography (2D-SWE) with a C5-2 MHz transducer. Multiple elastography samples are obtained. FINDINGS: PANCREAS: Limited. The visualized pancreatic head and proximal body are normal in appearance. The remainder of the pancreas is obscured from visualization by the overlying bowel gas. ABDOMINAL AORTA: The proximal, middle, and distal aortic segments are normal in caliber. INFERIOR VENA CAVA: Visualized portions are normal. LIVER: There is mild hepatomegaly, with a longitudinal span of 17.7 cm. The liver shows normal contour and echogenicity. No focal lesion or intrahepatic biliary duct dilatation. The right lobe measures 17.7 cm in length. The left lobe measures 10.8 cm in length. Portal flow is towards the liver (hepatopetal). Shear wave liver elastography median stiffness is 1.41 m/s (reference: normal median stiffness is 1.3 m/s or less). IQR/median stiffness to assess sampling precision is 0.10 (reference: good quality data set is IQR/median stiffness of 0.15 or less). GALLBLADDER: Normal. The gallbladder is physiologically distended without evidence of stones, sludge, polyps, wall thickening or pericholecystic fluid. COMMON BILE DUCT: Normal in caliber measuring 0.2 cm in diameter. RIGHT KIDNEY: Normal. No hydronephrosis. No renal calculi or focal parenchymal lesions. The kidney measures 10.5 cm in maximum dimension. LEFT KIDNEY: Normal. No hydronephrosis. No renal calculi or focal parenchymal lesions. The kidney measures 10.3 cm in maximum dimension. SPLEEN: Normal. The spleen measures 11.4 cm in maximum dimension. FREE FLUID: None. US/US abdomen comp w elastography IMPRESSION: 1. There is mild hepatomegaly. 2. Liver elastography: In the absence of other known clinical signs, measurements rule out compensated advanced chronic liver disease. If there are known clinical signs, further testing may be needed for confirmation. 3. Technically limited ultrasound examination of the pancreas. REFERENCE: Society of Radiologists in Ultrasound Liver Stiffness Thresholds (2020): LIVER STIFFNESS THRESHOLDS: *Liver Stiffness equal or less than 1.3 m/s: High probability of being normal. *Liver Stiffness less than 1.7 m/s: In the absence of other known clinical signs, rules out compensated advanced chronic liver disease. *Liver Stiffness 1.7-2.1 m/s: Suggestive of compensated advanced chronic liver disease but need further test for confirmation. *Liver Stiffness over 2.1 m/s: Rules in compensated advanced chronic liver disease. *Liver Stiffness over 2.4 m/s: Suggestive of clinically significant portal hypertension. QUALITY OF DATA SET: *IQR/Median value equal or less than 0.15 implies a quality data set. *IQR/Median value over 0.15 implies a poor quality data set. SIGNIFICANT CHANGE FROM PRIOR EXAM: Significant change if liver stiffness measurement is 10% or greater from prior exam. OTHER CONSIDERATIONS: The stage of liver fibrosis may be overestimated in the setting of acute hepatitis, liver inflammation, elevated liver function tests, hepatic vascular congestion, obstructive cholestasis, non-fasting state, and infiltrative diseases such as amyloidosis and lymphoma. In some patients with NAFLD, the liver stiffness thresholds for compensated advanced chronic liver disease may be lower. In causes other than viral hepatitis and NAFLD, liver stiffness thresholds are not well established.
== END 2022-09-20 08:18 | disposition home or self-care (01) ==
LOC: HO.US 08:17
PROVIDERS: PCP Internal Medicine; Visit Provider Surgery
DX: J45.909 Unspecified asthma, uncomplicated (principal); K21.9 Gastro-esophageal reflux disease without esophagitis; E66.01 Morbid (severe) obesity due to excess calories; Z68.42 Body mass index [BMI] 45.0-49.9, adult
CPT/HCPCS: 76705; 76981

== ENCOUNTER 2022-09-23 | Outpatient (REF) | payer MEDICARE, MEDICAID, SELFPAY ==
[2022-09-27 09:15] LABS: H Pylori Breath Test Negative (Negative)
== END 2022-09-23 00:01 | disposition home or self-care (01) ==
LOC: HO.LNP
PROVIDERS: Visit Provider Surgery
DX: E66.01 Morbid (severe) obesity due to excess calories (principal); Z68.42 Body mass index [BMI] 45.0-49.9, adult; K21.9 Gastro-esophageal reflux disease without esophagitis
CPT/HCPCS: 83013

== ENCOUNTER → 2022-09-23 08:08 | Outpatient (BNVA) | payer MEDICARE, MEDICAID, SELFPAY | PROVIDERS: PCP Internal Medicine; Visit Provider Physician Assistant Surgical | DX: Z11.0 Encounter for screening for intestinal infectious diseases (principal) | CPT/HCPCS: 99211 ==

== ENCOUNTER → 2022-09-28 08:42 | Outpatient (BNVA) | payer MEDICARE, MEDICAID, SELFPAY | PROVIDERS: PCP Internal Medicine; Visit Provider Dietitian, Registered | DX: E66.9 Obesity, unspecified (principal); Z71.3 Dietary counseling and surveillance | CPT/HCPCS: 97802 ==

== ENCOUNTER → 2022-09-29 09:30 | Outpatient (BNVA) | payer MEDICARE, MEDICAID, SELFPAY | PROVIDERS: PCP Internal Medicine; Visit Provider Counselor Mental Health | DX: F31.9 Bipolar disorder, unspecified (principal); K21.9 Gastro-esophageal reflux disease without esophagitis; E66.01 Morbid (severe) obesity due to excess calories; Z68.42 Body mass index [BMI] 45.0-49.9, adult ==

== ENCOUNTER → 2022-09-30 07:49 | Outpatient (BNVA) | payer MEDICARE, MEDICAID, SELFPAY | PROVIDERS: PCP Internal Medicine; Visit Provider Surgery | DX: E66.01 Morbid (severe) obesity due to excess calories (principal); K21.9 Gastro-esophageal reflux disease without esophagitis; F17.210 Nicotine dependence, cigarettes, uncomplicated; Z68.41 Body mass index [BMI] 40.0-44.9, adult | CPT/HCPCS: Q3014 ==

== ENCOUNTER 2022-10-14 13:30 | Outpatient (AMB) | payer MEDICARE, MEDICAID, SELFPAY ==
[2022-10-14 13:40] VITALS: BP 124/96; PULSE 89; O2SAT 98; BMI 43.6
--- NOTE | 2022-10-14 13:40 | A.OFFVIS_ITS ---
Intake Vital Signs 10/14/22 13:40 10/14/22 14:16 Height 5 ft 6 in Weight 270 lb BMI 43.6 BP 124/96 H 126/92 H Blood Pressure Location Lt brachial Lt brachial Position Sitting Sitting Pulse 89 Pulse Source Pulse Oximeter Temp Source Skin Pulse Oximetry (%) 98 Oxygen Delivery Method Room Air Intake Visit Reasons: AWV Intake Note: Patient is here for an Annual Wellness Visit. 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: No Allergies mushroom Allergy (Mild, Verified 10/14/22 14:04) THROAT CLOSING Medication List - Last Reconciled 10/14/22 by TALITA Gu albuterol sulfate 90 mcg/actuation (ProAir HFA) 2 puffs inhalation Q4-6H PRN 30 days bupropion HCl 150 mg PO QAM clindamycin phosphate 1% 1 appl topical DAILY dextroamphetamine-amphetamine 20 mg (Adderall) 20 mg PO DAILY doxycycline hyclate 300 mg PO DAILY fluticasone propionate 50 mcg/actuation 2 sprays intranasal DAILY mecobalamin (vitamin B12) 1,000 mcg sublingual DAILY melatonin 3 mg PO BEDTIME PRN omeprazole 20 mg PO BID topiramate 50 mg PO DAILY ustekinumab (Stelara) 90 mg subcut Q4W Fall Risk Assessment Fall risk assessment: No Falls in past year Date Fall Risk Assessed: 10/14/22 HPI AWV HPI0 Details Patient is a 32-year-old female presents today for initial wellness visit. Patient of Dr. Henry. Today we discussed patient's need for pneumonia vaccine, she would like to hold off. Pap smear negative 11/2021 with positive HPV with [facility], patient has an upcoming appointment with gynecology this year. Ione of care was reviewed with the patient and she was provided with a screening schedule. End of life planning was discussed with the patient and she was provided with healthcare proxy and MOLST forms. [facility] Medical History ADHD Anxiety Asthma Bipolar 1 disorder Depression Encounter for observation for other suspected diseases and conditions ruled out GERD (gastroesophageal reflux disease) History of drug use History of peptic ulcer Insomnia Low back pain Morbid obesity with BMI of 45.0-49.9, adult Onychogryposis PTSD (post-traumatic stress disorder) Sciatica Shortness of breath Super-super obese Transaminitis Surgical History H/O abdominal surgery H/O dilation and curettage History of section Family History Father Chronic mental illness Hyperlipidemia HTN (hypertension) Mother Chronic mental illness Obesity Brother No problems noted. Brother No problems noted. Son ADHD Son ADHD Family/Other Substance use disorder Social History Housing: Apartment Alcohol intake: former Patient Tobacco Use Status: Current everyday Tobacco user Tobacco use type: Cigarette Cigarettes Per Day: 1 e-Cigarette/Vaping Use: Never Used Second Hand Smoke Exposure: No service: No Current occupational status: unemployed Female Reproductive History Menstrual Age of Menarche: 12 Questionnaire Medicare Wellness Checkup [age] What gender do you identify with?: female During the past 4 weeks, how much have you been bothered by emotional problems such as feeling anxious, depressed, irritable, sad or downhearted, and blue?: moderately During the past 4 weeks, has your physical & emotional health limited your social activities with family, friends, neighbors, or groups?: moderately During the past 4 weeks, how much bodily pain have you generally had?: mild pain During the past 4 weeks, was someone available to help you if you needed & wanted help?: yes, as much as I wanted During the past 4 weeks, what was the hardest physical activity you could do for at least 2 minutes?: moderate Can you get to places out of walking distance without help? (For eg., can you travel alone on buses, taxis or drive your car?): Yes Can you go shopping for groceries or clothes without someone's help?: Yes Can you prepare your own meals?: Yes Can you do your housework without help?: Yes Because of any health problems, do you need the help of another person with your personal care needs such as eating, bathing, dressing or getting around the house?: No Can you handle your own money without help?: Yes During the past 4 weeks, how would you rate your health in general?: good During the past 4 weeks how have things been going for you?: pretty well Are you having difficulties driving your car?: not applicable, I don't use a car Do you always fasten your seat belt when you are in a car?: yes, usually During past 4 weeks, have you been bothered by the following: never: Falling or dizzy when standing up, Sexual problems?, Teeth or denture problems? and Problems using the telephone?, seldom: Trouble eating well? and sometimes: Tiredness or fatigue? Have you fallen 2 or more times in the past year?: No Are you afraid of falling?: No Are you a smoker?: yes, and I might quit During the past 4 weeks, how many drinks of wine, beer, or other alcoholic beverages did you have?: 2-5 drinks per week Do you exercise for about 20 minutes 3 or more times a week?: yes, most of the time How often do you have trouble taking medicines the way you have been told to take them?: I always take medicine as prescribed How confident are you that you can control & manage most of your health problems?: very confident What is your race?: White Mini Mental State Exam (MMSE) Orientation What is the (year) (season) (date) (day) (month)?: year, season, date, day and month Score Score: 5 Activity of Daily Living Bathing - sponge bath, tub bath or shower: receives no assistance (gets in/out by self, if usual bathing means Dressing - getting clothes from closets & drawers, including inner/outer garments & fasteners.: gets clothes & gets completely dressed without help Toileting - going to the 'toilet room' for urine/bowel elimination & cleaning self/arranging clothes: goes to toilet room, cleans self, arranges clothes without help Transfer: moves in & out of bed and chair without help (may use support object) Continence: controls urination/bowel movements completely by self Feeding: feeds self without help Total Score: 0 Information obtained from: patient Using telephone: independent Traveling: independent Shopping: independent Preparing meals: independent Housework: independent Taking medicine: independent Managing money: independent PHQ-9 Over the last 2 weeks, how often have you been bothered by any of the following problems? 1. Little interest or pleasure in doing things: more than half the days 2. Feeling down, depressed, or hopeless: several days 3. Trouble falling or staying asleep, or sleeping too much: more than half the days 4. Feeling tired or having little energy: more than half the days 5. Poor appetite or overeating: more than half the days 6. Feeling bad about yourself - or that you are a failure or have let yourself or your family down: not at all 7. Trouble concentrating on things, such as reading the newspaper or watching television: more than half the days 8. Moving or speaking so slowly that other people could have noticed. Or the opposite - being so fidgety or restless that you have been moving around a lot more than usual: more than half the days 9. Thoughts that you would be better off or of hurting yourself in some way: not at all Total score: 13 Depression Screening Interpretation: Positive Depression Screening Follow-up: In treatment - PHQ-9 Billing: Yes Source: Developed by Drs. Eleuterio Gómez, Sherin Enrique, Nicolas Garcia and colleagues, with an educational sekou from [employer]. MIKE-7 AMB Questionnaire MIKE-7 Date MIKE - 7 assessed: 10/14/22 Feeling nervous, anxious, or on edge: 1 = Several days (mostly being in public places ) Not being able to stop or control worryin = Not at all Worrying too much about different things: 0 = Not at all Trouble relaxin = Not at all Being so restless that it is hard to sit still: 0 = Not at all Becoming easily annoyed or irritable: 0 = Not at all Feeling afraid as if something awful might happen: 0 = Not at all Total MIKE-7 score (0-4 normal; 5-9 mild; 10-14 moderate; 15-21 severe): 1 Source: Developed by Drs. Eleuterio Gómez, Sherin Enrique, Nicolas Garcia and colleagues, with an educational sekou from [employer]. MIKE-7 Assessment Billing MIKE-7 Assessment Tool: MIKE-7 Assessment 83488 AUDIT C Alcohol Use Questionnaire (AUDIT-C) 1. How often do you have a drink containing alcohol?: Never 3. How often do you have six or more drinks on one occasion?: Never Total Score: 0 Score Reviewed/Action Taken: No Thrive Questionnaire Date Thrive assessed: 10/14/22 I am a: Patient What is your living situation today?: I have a steady place to live Within the past 12 months, did the food you bought not last and you didn't have the money to get more?: Never true Within the past 12 months, did you worry whether your food would run out before you got money to buy more?: Never true Do you have trouble paying for medicines?: No Do you have trouble getting transportation to medical appointments?: No Do you have trouble paying your heating and electricity bill?: No Do you have trouble taking care of your child, family member or friend?: No Do you have trouble with day-to-day activities such as bathing, preparing meals, shopping, managing finances, etc.?: No Are you currently unemployed and looking for a job?: No Are you interested in more education?: No Currently or been in a relationship where the following occur: no concerns reported Physical Exam Vital Signs: Last Vital Signs Pulse 89 10/14/22 13:40 BP 126/92 H 10/14/22 14:16 Pulse Ox 98 10/14/22 13:40 Oxygen Delivery Method Room Air 10/14/22 13:40 BMI result Body Mass Index 43.6 Const General: cooperative and no acute distress Orientation/consciousness: patient oriented x3 HEENT Other: Whisper test: pass Neuro Other: Balance: Normal Get up and walk: able to Romberg: negative Tandem gait: able to General: patient oriented x3 Assessment & Plan Assessment & Plan (1) Adult general medical exam: Code(s): Z00.00 - Encounter for general adult medical examination without abnormal findings (2) Asthma: Code(s): J45.909 - Unspecified asthma, uncomplicated Plan: Stable Continue albuterol inhaler p.r.n. (3) Bipolar 1 disorder: Code(s): F31.9 - Bipolar disorder, unspecified Plan: Continue to follow-up with psychiatry and therapist, mental health medications a re prescribed by Psychiatry (4) GERD (gastroesophageal reflux disease): Code(s): K21.9 - Gastro-esophageal reflux disease without esophagitis Plan: Avoid GERD trigger foods Do not lay down 2-3 hours after evening meal Continue omeprazole (5) Morbid obesity with BMI of 40.0-44.9, adult: Code(s): E66.01 - Morbid (severe) obesity due to excess calories; Z68.41 - Body mass index [BMI] 40.0-44.9, adult Plan: Healthy food choices and exercise as tolerated Patient follows with [facility] Quality Reporting (2019) Fall Risk Screening ([facility] 139) Last assessed Fall Risk: 10/14/22 Fall risk assessment: No Falls in past year Depression/Bipolar (159/160/161/177) PHQ-9: Total score: 13 Coding Level of Care Code Medicare First (G0438) Diagnoses Adult general medical exam Z00.00 Asthma J45.909 Bipolar 1 disorder F31.9 GERD (gastroesophageal reflux disease) K21.9 Morbid obesity with BMI of 40.0-44.9, adult E66.01; Z68.41 CPT Codes Advance Care Planning - Time spent: 1-15 minutes, not on file ([id number]) Additional Codes MIKE-7 Assessment Billing - MIKE-7 Assessment Tool: MIKE-7 Assessment 80393 ([id number]) Advance Care Planning Date of discussion: 10/14/22 Who was present: pt and psych arnp Forms completed: None Time spent: 1-15 minutes, not on file Actual minutes spent: 2 Did not discuss due to Cultural/Spiritual beliefs: No
[2022-10-14 14:16] VITALS: BP 126/92
== END 2022-10-14 14:24 | disposition home or self-care (01) ==
PROVIDERS: Visit Provider Nurse Practitioner Family
DX: Z00.00 Encounter for general adult medical examination without abnormal findings (principal); J45.909 Unspecified asthma, uncomplicated; E66.01 Morbid (severe) obesity due to excess calories; Z68.41 Body mass index [BMI] 40.0-44.9, adult; K21.9 Gastro-esophageal reflux disease without esophagitis; F31.9 Bipolar disorder, unspecified; Z71.89 Other specified counseling
CPT/HCPCS: 1124F; G0438

== ENCOUNTER 2022-10-20 10:00 | Outpatient (AMB) | payer MEDICARE, MEDICAID, SELFPAY ==
--- NOTE | 2022-10-20 10:40 | MHC.WMTHER ---
Intake Intake Visit Reasons: VIDEO f/u Allergies mushroom Allergy (Mild, Verified 10/14/22 14:04) THROAT CLOSING PFSH Medical History ADHD Anxiety Asthma Bipolar 1 disorder Depression Encounter for observation for other suspected diseases and conditions ruled out GERD (gastroesophageal reflux disease) History of drug use History of peptic ulcer Insomnia Low back pain Morbid obesity with BMI of 45.0-49.9, adult Onychogryposis PTSD (post-traumatic stress disorder) Sciatica Shortness of breath Super-super obese Transaminitis Surgical History H/O abdominal surgery H/O dilation and curettage History of section Family History Father Chronic mental illness Hyperlipidemia HTN (hypertension) Mother Chronic mental illness Obesity Brother No problems noted. Brother No problems noted. Son ADHD Son ADHD Family/Other Substance use disorder Social History Housing: Apartment Alcohol intake: former Patient Tobacco Use Status: Current everyday Tobacco user Tobacco use type: Cigarette Cigarettes Per Day: 1 e-Cigarette/Vaping Use: Never Used Second Hand Smoke Exposure: No service: No Current occupational status: unemployed Female Reproductive History Menstrual Age of Menarche: 12 Behavioral Health Assessment Weight Management Therapy Therapy Notes Details Patient stated that she has been struggling, not getting enough protein, then over eating also dehydrated, not getting enough water. She stated that her urine is dark yellow color. Pt was tearful, stated that she is also behind financially which makes her feel awful. She wants to succeed in this program and follow through. We talked about small goals for this week being increase water, getting more movement in the mornings before the heat, and making sure she brings her protein shakes or bar to the pool she brings her son to. Pt is looking to have weight loss surgery to help improve her health and quality of life. She reported being in therapy currently with Melida from [facility] that she sees every other week for a couple of year but has been in therapy since 14. Also sees a prescriber Tisha Maldonado from [facility]. She reported previous inpatient psychiatric admissions last time being around ten years ago due to suicide attempt. 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 This is her longest period of sobriety, prior to this she was clean for two years. Also hx of marijuana use, and some cocaine abuse in the past. Presenting Concerns Referral Source provider Reason for referral weight loss surgery evaluation Precipitating Event obesity Living Situation Current Living Situation Rent At risk of losing current housing? No Satisfied with current living situation? Yes Comments Pt lives with her two children ages 6 and 18. Food/Weight/Diet Expectations of change weight loss and maintenance History/Relationship with food Pt stated that she would eat a lot of fast food and take out especially after she quit smoking cigarettes, soda, juice, rice, pasta, meat, large portions and eating past the point of being full and being sedentary. History/Relationship with weight At her heaviest she was around 346lbs. History/Relationship with dieting [facility] 2020 but stated that she had some issues with boiler operator helper and counselor. Binge Eating Do you frequently eat large amounts of food in short periods of time, not feeling physically hungry? No Do you feel out of control when you eat a large amount of food in a short period of time? No Do you eat large amounts of food rapidly and typically alone? No Night Eating Do you wake up at least once during the night to eat? No If you wake up in the night, do you find that it is necessary to eat something in order to fall back asleep? No Do you have little or no appetite in the morning and feel very hungry in the evening, often overeating between dinner and when you go to bed? 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 Cultural/Ethnic information Legal Involvement and History Current or historical involvement with the legal system? 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 No Interested in further educational program? No Employment Employment Status Unemployed Wants help to find employment? No Financial Situation Describe current financial situation Occasional struggle Financial assistance? None and SSDI Service Service? No Mental Health and Addiction Treatment Current/Past substance abuse? Yes Current/Past addictive behavior concerns? Yes Medical and Physical Health Summary Physical exam in the last year? Yes Pain Screening Current pain? No Pain in the last few months? No Medications Is the patient compliant with medications? Yes Does the patient have Meek Guardian in place? Not applicable Does the patient use complimentary health approaches? No Trauma/Abuse History History of trauma? Yes Assessment & Plan Assessment & Plan (1) Bipolar 1 disorder: Code(s): F31.9 - Bipolar disorder, unspecified (2) GERD (gastroesophageal reflux disease): Code(s): K21.9 - Gastro-esophageal reflux disease without esophagitis (3) Morbid obesity with BMI of 45.0-49.9, adult: Code(s): E66.01 - Morbid (severe) obesity due to excess calories; Z68.42 - Body mass index [BMI] 45.0-49.9, adult Plan Pt has a long history of drug use and mental health struggles. She is currently in therapy and this song writer will contact provider. She will be seen again. Currently she is doing well with her mental health and working hard to get back on track and follow program requirements. Telehealth Telehealth Location of provider rendering services: other Location of patient: address on file Patient Identification confirmed using: Name, : Yes Telehealth method: video Patient verbally consented to treatment: Yes Patient verbally consented to billing insurance company: Yes Patient informed of any privacy concerns related to visit: Yes Minutes spent on Phone/Video with Pt.: 39 Coding Level of Care Code Tele Psytx 45 mins (21314) Diagnoses Bipolar 1 disorder F31.9 GERD (gastroesophageal reflux disease) K21.9 Morbid obesity with BMI of 45.0-49.9, adult E66.01; Z68.42 Time Spent (min) 39
== END 2022-10-20 10:40 | disposition home or self-care (01) ==
LOC: HO.HBST 10:39
PROVIDERS: PCP Internal Medicine; Visit Provider Counselor Mental Health
DX: F31.9 Bipolar disorder, unspecified (principal); K21.9 Gastro-esophageal reflux disease without esophagitis; E66.01 Morbid (severe) obesity due to excess calories; Z68.42 Body mass index [BMI] 45.0-49.9, adult
CPT/HCPCS: 90834

== ENCOUNTER → 2022-10-20 10:00 | Outpatient (BNVA) | payer MEDICARE, MEDICAID, SELFPAY | PROVIDERS: PCP Internal Medicine; Visit Provider Counselor Mental Health | DX: F31.9 Bipolar disorder, unspecified (principal); K21.9 Gastro-esophageal reflux disease without esophagitis; E66.01 Morbid (severe) obesity due to excess calories; Z68.42 Body mass index [BMI] 45.0-49.9, adult ==

== ENCOUNTER 2022-10-26 08:53 | Outpatient (AMB) | payer MEDICARE, MEDICAID, SELFPAY ==
--- NOTE | 2022-10-26 08:28 | MHC.OFFVISWM ---
Intake VS Expanded 10/26/22 08:33 Height 5 ft 6 in Weight 264 lb 12.8 oz BMI 42.7 Intake Visit Reasons: VIDEO f/u SWL Vibratory Pile Driver Required: No Allergies mushroom Allergy (Mild, Verified 10/14/22 14:04) THROAT CLOSING Medication List - Last Reconciled 10/26/22 by ATTILA Cisse albuterol sulfate 90 mcg/actuation (ProAir HFA) 2 puffs inhalation Q4-6H PRN 30 days bupropion HCl 150 mg PO QAM clindamycin phosphate 1% 1 appl topical DAILY dextroamphetamine-amphetamine 20 mg (Adderall) 20 mg PO DAILY doxycycline hyclate 300 mg PO DAILY fluticasone propionate 50 mcg/actuation 2 sprays intranasal DAILY mecobalamin (vitamin B12) 1,000 mcg sublingual DAILY melatonin 3 mg PO BEDTIME PRN omeprazole 20 mg PO BID topiramate 50 mg PO DAILY ustekinumab (Stelara) 90 mg subcut Q4W HPI HPI Comments History of Present Illness Details 32 yo female returns for pre-op care for planned sleeve gastrectomy Initial weight on 08/31/22 was 273.8 with a BMI of 44.1 Weight today is 264.8 with a BMI of 42.7 weight loss 9 pounds or 3.2 TBWL% She states she was surprised by her weight this morning as she had not been below 266 pounds. She has followed the meal plan exactly however she started it 1 week ago. She states she is using premier protein, 1/2 scoop 2 shakes w 8 oz almond milk. 2 ZP bars, meal 10/10, bar. Drinking Meal plan: 2 Pure protein shakes (HALF scoop EACH in 8oz low fat unsweetened almond milk each) at 5am-7am and 8am-10am, 2 Zone Perfect protein bars at 11am-1pm and 2pm-4pm, dinner at 5pm (10 forks of protein and 10 forks of salad/vegetables) AND one more protein bar after dinner at 7pm-9pm. Exercise plan: walk 2 miles, 6 days per week, 280 calories PFSH Medical History ADHD Anxiety Asthma Bipolar 1 disorder Depression Encounter for observation for other suspected diseases and conditions ruled out GERD (gastroesophageal reflux disease) History of drug use History of peptic ulcer Insomnia Low back pain Morbid obesity with BMI of 45.0-49.9, adult Onychogryposis PTSD (post-traumatic stress disorder) Sciatica Shortness of breath Super-super obese Transaminitis Surgical History H/O abdominal surgery H/O dilation and curettage History of section Family History Father Chronic mental illness Hyperlipidemia HTN (hypertension) Mother Chronic mental illness Obesity Brother No problems noted. Brother No problems noted. Son ADHD Son ADHD Family/Other Substance use disorder Social History Housing: Apartment Alcohol intake: former Patient Tobacco Use Status: Current everyday Tobacco user Tobacco use type: Cigarette Cigarettes Per Day: 1 e-Cigarette/Vaping Use: Never Used Second Hand Smoke Exposure: No service: No Current occupational status: unemployed Female Reproductive History Menstrual Age of Menarche: 12 Review of Systems Const All systems reviewed & are unremarkable except as noted in HPI and below Assessment & Plan Assessment & Plan (1) Morbid obesity with BMI of 40.0-44.9, adult: Code(s): E66.01 - Morbid (severe) obesity due to excess calories; Z68.41 - Body mass index [BMI] 40.0-44.9, adult Plan: Discussed that she is doing premier protien instead of pure protein but can continue at current meal plan substituting premier protein, same scoops Discussed increasing walk form 2 miles to 2.5 miles and then 3 miles as she is able to increase distance Discussed walking in the pool when she visits her gransparents 3 times per week in addition to the walking daily Reminded of upcoming appointments. Telehealth Telehealth Location of provider rendering services: practice address Location of patient: address on file Patient Identification confirmed using: Name, : Yes Telehealth method: video Patient verbally consented to treatment: Yes Patient verbally consented to billing insurance company: Yes Patient informed of any privacy concerns related to visit: Yes Minutes spent on Phone/Video with Pt.: 20 Coding Level of Care Code Tele Est Pt Level 3 (77152) Diagnoses Morbid obesity with BMI of 40.0-44.9, adult E66.01; Z68.41 Time Spent (min) 25
[2022-10-26 08:33] VITALS: BMI 42.7
== END 2022-10-26 08:53 | disposition home or self-care (01) ==
LOC: HO.HBS 08:53
PROVIDERS: PCP Internal Medicine; Visit Provider Physician Assistant Surgical
DX: E66.01 Morbid (severe) obesity due to excess calories (principal); Z68.41 Body mass index [BMI] 40.0-44.9, adult
CPT/HCPCS: 99024

== ENCOUNTER → 2022-10-26 08:53 | Outpatient (BNVA) | payer MEDICARE, MEDICAID, SELFPAY | PROVIDERS: PCP Internal Medicine; Visit Provider Physician Assistant Surgical ==

== ENCOUNTER 2022-11-08 14:32 | Outpatient (AMB) | payer MEDICARE, MEDICAID, SELFPAY ==
--- NOTE | 2022-11-08 14:36 | A.OFFWM_ITS ---
Intake Intake Visit Reasons: VIDEO F/U Allergies mushroom Allergy (Mild, Verified 10/14/22 14:04) THROAT CLOSING [facility] Medical History ADHD Anxiety Asthma Bipolar 1 disorder Depression Encounter for observation for other suspected diseases and conditions ruled out GERD (gastroesophageal reflux disease) History of drug use History of peptic ulcer Insomnia Low back pain Morbid obesity with BMI of 45.0-49.9, adult Onychogryposis PTSD (post-traumatic stress disorder) Sciatica Shortness of breath Super-super obese Transaminitis Surgical History H/O abdominal surgery H/O dilation and curettage History of section Family History Father Chronic mental illness Hyperlipidemia HTN (hypertension) Mother Chronic mental illness Obesity Brother No problems noted. Brother No problems noted. Son ADHD Son ADHD Family/Other Substance use disorder Social History Housing: Apartment Alcohol intake: former Patient Tobacco Use Status: Current everyday Tobacco user Tobacco use type: Cigarette Cigarettes Per Day: 1 e-Cigarette/Vaping Use: Never Used Second Hand Smoke Exposure: No service: No Current occupational status: unemployed Female Reproductive History Menstrual Age of Menarche: 12 Behavioral Health Assessment Weight Management Therapy Therapy Notes Details Patient reported doing much better past two weeks, financially in a better place, has also been exercising/walking more. Pt expressed frustration and anger about her experience in the program last time and why she was never able to have surgery. this television writer told her best guess would be she had just stopped using drugs but cannot be exactly sure. Melida (therapist) [phone] (left message). Pt is looking to have weight loss surgery to help improve her health and quality of life. She reported being in therapy currently with Melida from [facility] that she sees every other week for a couple of year but has been in therapy since 14. Also sees a prescriber Tisha Maldondao from [facility]. She reported previous inpatient psychiatric admissions last time being around ten years ago due to suicide attempt. 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 This is her longest period of sobriety, prior to this she was clean for two years. Also hx of marijuana use, and some cocaine abuse in the past. Presenting Concerns Referral Source provider Reason for referral weight loss surgery evaluation Precipitating Event obesity Living Situation Current Living Situation Rent At risk of losing current housing? No Satisfied with current living situation? Yes Comments Pt lives with her two children ages 6 and 18. Food/Weight/Diet Expectations of change weight loss and maintenance History/Relationship with food Pt stated that she would eat a lot of fast food and take out especially after she quit smoking cigarettes, soda, juice, rice, pasta, meat, large portions and eating past the point of being full and being sedentary. History/Relationship with weight At her heaviest she was around 346lbs. 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 Binge Eating Do you frequently eat large amounts of food in short periods of time, not feeling physically hungry? No Do you feel out of control when you eat a large amount of food in a short period of time? No Do you eat large amounts of food rapidly and typically alone? No Night Eating Do you wake up at least once during the night to eat? No If you wake up in the night, do you find that it is necessary to eat something in order to fall back asleep? No Do you have little or no appetite in the morning and feel very hungry in the evening, often overeating between dinner and when you go to bed? 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 Cultural/Ethnic information Legal Involvement and History Current or historical involvement with the legal system? 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 No Interested in further educational program? No Employment Employment Status Unemployed Wants help to find employment? No Financial Situation Describe current financial situation Occasional struggle Financial assistance? None and SSDI Service Service? No Mental Health and Addiction Treatment Current/Past substance abuse? Yes Current/Past addictive behavior concerns? Yes Medical and Physical Health Summary Physical exam in the last year? Yes Pain Screening Current pain? No Pain in the last few months? No Medications Is the patient compliant with medications? Yes Does the patient have Meek Guardian in place? Not applicable Does the patient use complimentary health approaches? No Trauma/Abuse History History of trauma? Yes Assessment & Plan Assessment & Plan (1) Bipolar 1 disorder: Code(s): F31.9 - Bipolar disorder, unspecified (2) GERD (gastroesophageal reflux disease): Code(s): K21.9 - Gastro-esophageal reflux disease without esophagitis (3) Morbid obesity with BMI of 45.0-49.9, adult: Code(s): E66.01 - Morbid (severe) obesity due to excess calories; Z68.42 - Body mass index [BMI] 45.0-49.9, adult Plan Pt has a long history of drug use and mental health struggles. She is currently in therapy. Currently she is doing well with her mental health and working hard to get back on track and follow program requirements. Patient became angry today during appt, started escalating when talking about the past in the program, was led on, and now wants to know if she is going to have the surgery or not, how many more appt? Patient's provider has not responded to voicemails left. Telehealth Telehealth Location of provider rendering services: other Location of patient: address on file Patient Identification confirmed using: Name, : Yes Telehealth method: video Patient verbally consented to treatment: Yes Patient verbally consented to billing insurance company: Yes Patient informed of any privacy concerns related to visit: Yes Minutes spent on Phone/Video with Pt.: 30 Coding Level of Care Code Tele Psytx 30 mins (26118) Diagnoses Bipolar 1 disorder F31.9 GERD (gastroesophageal reflux disease) K21.9 Morbid obesity with BMI of 45.0-49.9, adult E66.01; Z68.42 Time Spent (min) 35
== END 2022-11-08 14:55 | disposition home or self-care (01) ==
LOC: HO.HBST 14:33
PROVIDERS: PCP Internal Medicine; Visit Provider Counselor Mental Health
DX: F31.9 Bipolar disorder, unspecified (principal); K21.9 Gastro-esophageal reflux disease without esophagitis; E66.01 Morbid (severe) obesity due to excess calories; Z68.42 Body mass index [BMI] 45.0-49.9, adult
CPT/HCPCS: 90832

== ENCOUNTER → 2022-11-08 14:32 | Outpatient (BNVA) | payer MEDICARE, MEDICAID, SELFPAY | PROVIDERS: PCP Internal Medicine; Visit Provider Counselor Mental Health ==

== ENCOUNTER 2022-11-18 08:17 | Outpatient (AMB) | payer MEDICARE, MEDICAID, SELFPAY ==
--- NOTE | 2022-11-18 11:34 | A.OFFVIS_ITS ---
Intake VS Expanded 11/18/22 11:41 Height 5 ft 6 in Weight 260 lb BMI 42.0 Body Fat 106.8 Body Fat Percentage 41.1 Free Fat Mass 153.1 Water Mass 112.5 BMR 2,064 Intake Visit Reasons: TV Follow Up SWL Allergies mushroom Allergy (Mild, Verified 10/14/22 14:04) THROAT CLOSING HPI TV Follow Up SWL HPI Details Start time: 11.30am, End time: 11.45am ?I spent 10 minutes speaking with the patient on the phone plus an additional 5 minutes reviewing and updating records for a total of 15 minutes HPI Comments History of Present Illness Details Overall weight loss: 13.8lbs, or 5.04% TBWL Is doing 2 Premier protein shakes (1/2 scoop in water or almond milk), 3 Zone Perfect protein bars and one meal (10 forks of protein and 10 forks of salad or vegetables) Exercise: walking outside x5-6/week for 250-350 calories PFSH Medical History ADHD Anxiety Asthma Bipolar 1 disorder Depression Encounter for observation for other suspected diseases and conditions ruled out GERD (gastroesophageal reflux disease) History of drug use History of peptic ulcer Insomnia Low back pain Morbid obesity with BMI of 45.0-49.9, adult Onychogryposis PTSD (post-traumatic stress disorder) Sciatica Shortness of breath Super-super obese Transaminitis Surgical History H/O abdominal surgery H/O dilation and curettage History of section Family History Father Chronic mental illness Hyperlipidemia HTN (hypertension) Mother Chronic mental illness Obesity Brother No problems noted. Brother No problems noted. Son ADHD Son ADHD Family/Other Substance use disorder Social History Housing: Apartment Alcohol intake: former Patient Tobacco Use Status: Current everyday Tobacco user Tobacco use type: Cigarette Cigarettes Per Day: 1 e-Cigarette/Vaping Use: Never Used Second Hand Smoke Exposure: No service: No Current occupational status: unemployed Female Reproductive History Menstrual Age of Menarche: 12 Assessment & Plan Assessment & Plan (1) Morbid obesity with BMI of 40.0-44.9, adult: Code(s): E66.01 - Morbid (severe) obesity due to excess calories; Z68.41 - Body mass index [BMI] 40.0-44.9, adult Plan: 1. Continue same nutritional plan of 2 Premier protein shakes (1/2 scoop in [place] er or almond milk), 3 Zone Perfect protein bars and one meal (10 forks of protein and 10 forks of salad or vegetables) 2. Exercise: continue walking outside x5-6/week but increase to 350-400 calories per walk 3. Continue to send me weight measurements weekly on Fridays Telehealth Telehealth Location of provider rendering services: practice address Location of patient: address on file Patient Identification confirmed using: Name, : Yes Telehealth method: voice only Patient verbally consented to treatment: Yes Patient verbally consented to billing insurance company: Yes Patient informed of any privacy concerns related to visit: Yes Minutes spent on Phone/Video with Pt.: 15 Coding Level of Care Code Tele Est Pt Level 2 (11812) Diagnoses Morbid obesity with BMI of 40.0-44.9, adult E66.01; Z68.41 Time Spent (min) 15
[2022-11-18 11:41] VITALS: BMI 42.0
== END 2022-11-18 11:45 | disposition home or self-care (01) ==
LOC: HO.HBS 08:17
PROVIDERS: PCP Internal Medicine; Visit Provider Surgery
DX: E66.01 Morbid (severe) obesity due to excess calories (principal); Z68.41 Body mass index [BMI] 40.0-44.9, adult
CPT/HCPCS: 99442

== ENCOUNTER → 2022-11-18 08:17 | Outpatient (BNVA) | payer MEDICARE, MEDICAID, SELFPAY | PROVIDERS: PCP Internal Medicine; Visit Provider Surgery ==

== ENCOUNTER 2022-11-23 11:58 | Outpatient (AMB) | payer MEDICARE, MEDICAID, SELFPAY ==
--- NOTE | 2022-11-23 11:33 | A.OFFVIS_ITS ---
Intake Intake Visit Reasons: VIDEO F/U SWL Allergies mushroom Allergy (Mild, Verified 10/14/22 14:04) THROAT CLOSING HPI Nutrition Presentation Details Re-establishing , was in the program in 2020 but got tired of playing phone tag so I gave up Reason for consult elevated BMI Unstable SDH Reports transportation and use of SNAP Smoking assessment Reviewed ( hx of marijuana use, and some cocaine abuse in the past-see recent note ) Diet Assmnt Details She receives food stamp benefits. 2 shakes, 2 bars, 1 meal, and protein bar at night last night ate shredded pork with mixed veg - lettuce, chicken, onions or in a wrap (not low carb) with chicken and pepper aure cheese Is currently smoking a cigarette during todays appointment. I am just stressed today . Reports she stopped smoking awhile ago but had problems with her psych meds and she picked up smoking again. She was smoking at last nutrition appt as well SWL online classes: completed and reviewed. Dietary counseling reduction Diagnosis Nutrition problem #1 overweight/obesity As related to (etiology) #1 excess energy intake and physical inactivity As evidenced by (sign/symptom) #1 high BMI Monitoring/Goals Nutrition problem monitoring total energy intake, level of knowledge/skill, total PRO intake, total CHO intake and weight Outcome progress verbalized understanding Learning/Education Readiness to learn poor Stages of change preparation Educational materials provided Yes Most Recent Diabetes Results: No Data to Display [facility] Medical History ADHD Anxiety Asthma Bipolar 1 disorder Depression Encounter for observation for other suspected diseases and conditions ruled out GERD (gastroesophageal reflux disease) History of drug use History of peptic ulcer Insomnia Low back pain Morbid obesity with BMI of 45.0-49.9, adult Onychogryposis PTSD (post-traumatic stress disorder) Sciatica Shortness of breath Super-super obese Transaminitis Surgical History H/O abdominal surgery H/O dilation and curettage History of section Family History Father Chronic mental illness Hyperlipidemia HTN (hypertension) Mother Chronic mental illness Obesity Brother No problems noted. Brother No problems noted. Son ADHD Son ADHD Family/Other Substance use disorder Social History Housing: Apartment Alcohol intake: former Patient Tobacco Use Status: Current everyday Tobacco user Tobacco use type: Cigarette Cigarettes Per Day: 1 e-Cigarette/Vaping Use: Never Used Second Hand Smoke Exposure: No service: No Current occupational status: unemployed Female Reproductive History Menstrual Age of Menarche: 12 Assessment & Plan Assessment & Plan (1) Morbid (severe) obesity due to excess calories: Code(s): E66.01 - Morbid (severe) obesity due to excess calories Patient Instructions: Discussed with surgeon concerns which include cigarette smoking, pts lack of ability to adhere to nutrition recommendations for an extended period of time. Recommend she demonstrate adherence to all recommendations prior to having surgery. she will continue to follow with surgeon Telehealth Telehealth Location of provider rendering services: practice address Location of patient: address on file Patient Identification confirmed using: Name, : Yes Telehealth method: video Patient verbally consented to treatment: Yes Patient verbally consented to billing insurance company: Yes Patient informed of any privacy concerns related to visit: Yes Minutes spent on Phone/Video with Pt.: 30 Coding Level of Care Code Nutr Indiv Subseq (42973) Diagnoses Morbid (severe) obesity due to excess calories E66.01 Time Spent (min) 30
== END 2022-11-23 12:02 | disposition home or self-care (01) ==
LOC: HO.HBS 11:58
PROVIDERS: PCP Internal Medicine; Visit Provider Dietitian, Registered
DX: E66.01 Morbid (severe) obesity due to excess calories (principal)

== ENCOUNTER → 2022-11-23 11:58 | Outpatient (BNVA) | payer MEDICARE, MEDICAID, SELFPAY | PROVIDERS: PCP Internal Medicine; Visit Provider Dietitian, Registered | DX: E66.01 Morbid (severe) obesity due to excess calories (principal); Z71.3 Dietary counseling and surveillance | CPT/HCPCS: 97803 ==

== ENCOUNTER 2022-12-01 11:38 | Outpatient (AMB) | payer MEDICARE, MEDICAID, SELFPAY ==
--- NOTE | 2022-12-01 11:39 | MHC.WMTHER ---
Intake Intake Visit Reasons: VIDEO F/U Allergies mushroom Allergy (Mild, Verified 10/14/22 14:04) THROAT CLOSING [facility] Medical History ADHD Anxiety Asthma Bipolar 1 disorder Depression Encounter for observation for other suspected diseases and conditions ruled out GERD (gastroesophageal reflux disease) History of drug use History of peptic ulcer Insomnia Low back pain Morbid obesity with BMI of 45.0-49.9, adult Onychogryposis PTSD (post-traumatic stress disorder) Sciatica Shortness of breath Super-super obese Transaminitis Surgical History H/O abdominal surgery H/O dilation and curettage History of section Family History Father Chronic mental illness Hyperlipidemia HTN (hypertension) Mother Chronic mental illness Obesity Brother No problems noted. Brother No problems noted. Son ADHD Son ADHD Family/Other Substance use disorder Social History Housing: Apartment Alcohol intake: former Patient Tobacco Use Status: Current everyday Tobacco user Tobacco use type: Cigarette Cigarettes Per Day: 1 e-Cigarette/Vaping Use: Never Used Second Hand Smoke Exposure: No service: No Current occupational status: unemployed Female Reproductive History Menstrual Age of Menarche: 12 Behavioral Health Assessment Weight Management Therapy Therapy Notes Details Patient reported doing well, her son is back in school which allows her more time for herself. Continues to work on her goals. She reported providing verbal permission to her therapist to speak with me. Melida (therapist) [phone] (left message). Pt is looking to have weight loss surgery to help improve her health and quality of life. She reported being in therapy currently with Melida from [facility] that she sees every other week for a couple of year but has been in therapy since 14. Also sees a prescriber Tisha Maldonado from [facility]. She reported previous inpatient psychiatric admissions last time being around ten years ago due to suicide attempt. 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 This is her longest period of sobriety, prior to this she was clean for two years. Also hx of marijuana use, and some cocaine abuse in the past. Presenting Concerns Referral Source provider Reason for referral weight loss surgery evaluation Precipitating Event obesity Living Situation Current Living Situation Rent At risk of losing current housing? No Satisfied with current living situation? Yes Comments Pt lives with her two children ages 6 and 18. Food/Weight/Diet Expectations of change weight loss and maintenance History/Relationship with food Pt stated that she would eat a lot of fast food and take out especially after she quit smoking cigarettes, soda, juice, rice, pasta, meat, large portions and eating past the point of being full and being sedentary. History/Relationship with weight At her heaviest she was around 346lbs. 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 Binge Eating Do you frequently eat large amounts of food in short periods of time, not feeling physically hungry? No Do you feel out of control when you eat a large amount of food in a short period of time? No Do you eat large amounts of food rapidly and typically alone? No Night Eating Do you wake up at least once during the night to eat? No If you wake up in the night, do you find that it is necessary to eat something in order to fall back asleep? No Do you have little or no appetite in the morning and feel very hungry in the evening, often overeating between dinner and when you go to bed? 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 Cultural/Ethnic information Legal Involvement and History Current or historical involvement with the legal system? none reported Education Highest grade completed GED, medical device certificate Preferred learning style Auditory, Verbal, Written, Learn by doing and Visual Currently enrolled in educational program? No Interested in further educational program? No Employment Employment Status Unemployed Wants help to find employment? No Financial Situation Describe current financial situation Occasional struggle Financial assistance? None and SSDI Service Service? No Mental Health and Addiction Treatment Current/Past substance abuse? Yes Current/Past addictive behavior concerns? Yes Medical and Physical Health Summary Physical exam in the last year? Yes Pain Screening Current pain? No Pain in the last few months? No Medications Is the patient compliant with medications? Yes Does the patient have Meek Guardian in place? Not applicable Does the patient use complimentary health approaches? No Trauma/Abuse History History of trauma? Yes Assessment & Plan Assessment & Plan (1) Bipolar 1 disorder: Code(s): F31.9 - Bipolar disorder, unspecified (2) Morbid obesity with BMI of 45.0-49.9, adult: Code(s): E66.01 - Morbid (severe) obesity due to excess calories; Z68.42 - Body mass index [BMI] 45.0-49.9, adult Plan Pt has a long history of drug use and mental health struggles. She is currently in therapy. Currently she is doing well with her mental health and working hard to get back on track and follow program requirements. This feature writer left another message for her therapist. Telehealth Telehealth Location of provider rendering services: other Location of patient: other Patient Identification confirmed using: Name, : Yes Telehealth method: voice only Patient verbally consented to treatment: Yes Patient verbally consented to billing insurance company: Yes Patient informed of any privacy concerns related to visit: Yes Minutes spent on Phone/Video with Pt.: 25 Coding Level of Care Code Tele Psytx 30 mins (56229) Diagnoses Bipolar 1 disorder F31.9 Morbid obesity with BMI of 45.0-49.9, adult E66.01; Z68.42 Time Spent (min) 25
== END 2022-12-01 11:58 | disposition home or self-care (01) ==
LOC: HO.HBST 11:38
PROVIDERS: PCP Internal Medicine; Visit Provider Counselor Mental Health
DX: F31.9 Bipolar disorder, unspecified (principal); E66.01 Morbid (severe) obesity due to excess calories; Z68.42 Body mass index [BMI] 45.0-49.9, adult
CPT/HCPCS: 90832

== ENCOUNTER → 2022-12-01 11:38 | Outpatient (BNVA) | payer MEDICARE, MEDICAID, SELFPAY | PROVIDERS: PCP Internal Medicine; Visit Provider Counselor Mental Health ==

== ENCOUNTER 2022-12-16 09:00 | Outpatient (AMB) | payer MEDICARE, MEDICAID, SELFPAY ==
--- NOTE | 2022-12-16 09:16 | A.OFFVIS_ITS ---
Intake VS Expanded 12/16/22 09:23 Height 5 ft 6 in Weight 259 lb 9.6 oz BMI 41.9 BP 138/83 Blood Pressure Location Rt brachial Blood Pressure Position Sitting Pulse 81 Pulse Source Pulse Oximeter Temp 97.5 F Temperature Source Temporal Artery Scan Pulse Oximetry 96 Oxygen Delivery Method Room Air Body Fat 111.8 Body Fat Percentage 43.1 Free Fat Mass 147.8 Muscle Mass 140.2 Visceral Mass 11.0 Water Mass 105.8 BMR 2,087 Intake Visit Reasons: OV Follow Up SWL Allergies mushroom Allergy (Mild, Verified 12/16/22 09:21) THROAT CLOSING HPI HPI Comments History of Present Illness Details Overall weight loss: 14lbs, or 5.11% TBWL Is doing 2 Premier protein shakes (1/2 scoop each in 8oz almond milk), 2 Zone Perfect protein bars and one meal (10 forks of protein and 10 forks of salad or vegetables) Exercise: walking 6 days per week for 340 calories per walk Has quit smoking for 6 weeks. [facility] Medical History (Updated 12/16/22 @ 10:02 by Amol Brink MD) Smoking Insomnia ADHD Transaminitis Super-super obese Shortness of breath Onychogryposis Encounter for observation for other suspected diseases and conditions ruled out History of drug use History of peptic ulcer Morbid obesity with BMI of 45.0-49.9, adult Asthma Sciatica Low back pain Bipolar 1 disorder GERD (gastroesophageal reflux disease) Anxiety Depression PTSD (post-traumatic stress disorder) Surgical History History of section H/O dilation and curettage H/O abdominal surgery Family History Father Chronic mental illness Hyperlipidemia HTN (hypertension) Mother Chronic mental illness Obesity Brother No problems noted. Brother No problems noted. Son ADHD Son ADHD Family/Other Substance use disorder Social History (Updated 12/16/22 @ 09:21 by Beth Mata CMA) Housing: Apartment Alcohol intake: current Alcohol intake frequency: a few times a week Patient Tobacco Use Status: Former Tobacco user Tobacco use type: Cigarette e-Cigarette/Vaping Use: Never Used Second Hand Smoke Exposure: No service: No Current occupational status: unemployed Female Reproductive History Menstrual Age of Menarche: 12 Physical Exam Vital Signs: Last Vital Signs Temp 97.5 F 12/16/22 09:23 Pulse 81 12/16/22 09:23 BP 138/83 12/16/22 09:23 Pulse Ox 96 12/16/22 09:23 Oxygen Delivery Method Room Air 12/16/22 09:23 BMI result Body Mass Index 41.9 GI Inspection: Yes normal to inspection (mixed body habitus) and Yes obesity Palpation (GI): Soft to palpation Extrem Right lower extremity: normal to inspection (no calf tenderness) Left lower extremity: normal to inspection (no calf tenderness) Assessment & Plan Assessment & Plan (1) Morbid obesity with BMI of 40.0-44.9, adult: Code(s): E66.01 - Morbid (severe) obesity due to excess calories; Z68.41 - Body mass index [BMI] 40.0-44.9, adult Plan: 1. Continue same nutritional plan of 2 Premier protein shakes (1/2 scoop each in 8oz almond milk), 2 Zone Perfect protein bars and one meal (10 forks of protein and 10 forks of salad or vegetables) 2. Exercise: continue walking 6 days per week for 340 calories per walk. always track calories of the walks and try to burn at least 2000 calories per week 3. Purchase a stationary bike, elliptical or treadmill at home that can track calories. Let me know if you do so I can give you an exercise plan. 4. Goal is to lose at least 1.5-2lbs per week 5. Send me weight measurements tomorrow and then weekly on Fridays Orders: Orders Carbon Monoxide Today F17.200 - Nicotine dependence, unspecified, uncomplicated Nicotine and Metabolite Ur, Qt Today F17.200 - Nicotine dependence, unspecified, uncomplicated Medications: New docusate sodium (Colace) 100 mg PO DAILY 30 caps 2RF K59.00 - Constipation, unspecified Coding Level of Care Code Est Pt Level 4 (55916) Diagnoses Morbid obesity with BMI of 40.0-44.9, adult E66.01; Z68.41 Time Spent (min) 30
[2022-12-16 09:23] VITALS: BP 138/83; PULSE 81; TEMP 36.4; O2SAT 96; BMI 41.9
== END 2022-12-16 12:07 | disposition home or self-care (01) ==
PROVIDERS: PCP Internal Medicine; Visit Provider Surgery
DX: E66.01 Morbid (severe) obesity due to excess calories (principal); Z68.41 Body mass index [BMI] 40.0-44.9, adult
CPT/HCPCS: 99214

== ENCOUNTER → 2022-12-16 09:00 | Outpatient (BNVA) | payer MEDICARE, MEDICAID, SELFPAY | PROVIDERS: PCP Internal Medicine; Visit Provider Surgery | DX: E66.01 Morbid (severe) obesity due to excess calories (principal); Z68.41 Body mass index [BMI] 40.0-44.9, adult | CPT/HCPCS: 99212 ==

== ENCOUNTER 2022-12-23 10:43 | Outpatient (REF) | payer MEDICARE, MEDICAID, SELFPAY ==
[2022-12-23 11:42] LABS: Carbon Monoxide Refer to POC result
[2022-12-23 11:43] LABS: Carbon Monoxide POC 1.2 %
[2022-12-27 23:54] LABS: Cotinine, U <2 ng/mL; Nicotine, U <2 ng/mL
== END 2022-12-23 10:44 | disposition home or self-care (01) ==
LOC: HO.LAB 10:43
PROVIDERS: PCP Internal Medicine; Visit Provider Surgery
DX: F17.200 Nicotine dependence, unspecified, uncomplicated (principal)
CPT/HCPCS: 80323; 82375

== ENCOUNTER 2023-01-06 08:09 | Outpatient (AMB) | payer MEDICARE, MEDICAID, SELFPAY ==
[2023-01-06 12:51] VITALS: BMI 42.0
--- NOTE | 2023-01-06 12:51 | MHC.OFFVISWM ---
Intake VS Expanded 01/06/23 12:51 Height 5 ft 6 in Weight 260 lb BMI 42.0 Body Fat % 41.1 Body Fat Mass 106.8 Fat Free Mass 153.1 Body Water % 43.3 Body Water Mass 112.6 Intake Visit Reasons: TV Follow Up SWL Allergies mushroom Allergy (Mild, Verified 12/16/22 09:21) THROAT CLOSING HPI TV Follow Up SWL HPI Details Start time: 12.30pm, End time: 12.58pm ?I spent 23 minutes speaking with the patient on the phone plus an additional 5 minutes reviewing and updating records for a total of 28 minutes HPI Comments History of Present Illness Details Overall weight loss: 13.8lbs, or 5.04% TBWL Is doing one Premier protein shake (1/2 scoop each in 8oz almond milk), 1 Zone Perfect protein bar and one meal (not measured portions Exercise: none due to PMS Has quit smoking for 10 weeks. Nicotine test was negative [facility] Medical History (Updated 12/16/22 @ 10:02 by Amol Brink MD) Smoking Insomnia ADHD Transaminitis Super-super obese Shortness of breath Onychogryposis Encounter for observation for other suspected diseases and conditions ruled out History of drug use History of peptic ulcer Morbid obesity with BMI of 45.0-49.9, adult Asthma Sciatica Low back pain Bipolar 1 disorder GERD (gastroesophageal reflux disease) Anxiety Depression PTSD (post-traumatic stress disorder) Surgical History History of section H/O dilation and curettage H/O abdominal surgery Family History Father Chronic mental illness Hyperlipidemia HTN (hypertension) Mother Chronic mental illness Obesity Brother No problems noted. Brother No problems noted. Son ADHD Son ADHD Family/Other Substance use disorder Social History (Updated 12/16/22 @ 09:21 by Beth Mata CMA) Housing: Apartment Alcohol intake: current Alcohol intake frequency: a few times a week Patient Tobacco Use Status: Former Tobacco user Tobacco use type: Cigarette e-Cigarette/Vaping Use: Never Used Second Hand Smoke Exposure: No service: No Current occupational status: unemployed Female Reproductive History Menstrual Age of Menarche: 12 Assessment & Plan Assessment & Plan (1) Morbid obesity with BMI of 40.0-44.9, adult: Code(s): E66.01 - Morbid (severe) obesity due to excess calories; Z68.41 - Body mass index [BMI] 40.0-44.9, adult Plan: 1. We emphasized the importance of following the plan correctly and not skipping protein supplements: 2 Premier protein shakes (1/2 scoop each in 8oz almond milk), 2 Zone Perfect protein bars and one meal (10 forks of protein and 10 forks of salad or vegetables) 2. Exercise: continue walking 6 days per week for 340 calories per walk 3. Continue to send weight measurements weekly on Telehealth Telehealth Location of provider rendering services: practice address Location of patient: address on file Patient Identification confirmed using: Name, : Yes Telehealth method: voice only Patient verbally consented to treatment: Yes Patient verbally consented to billing insurance company: Yes Patient informed of any privacy concerns related to visit: Yes Minutes spent on Phone/Video with Pt.: 28 Coding Level of Care Code Tele Est Pt Level 3 (00807) Diagnoses Morbid obesity with BMI of 40.0-44.9, adult E66.01; Z68.41 Time Spent (min) 28
== END 2023-01-06 12:59 | disposition home or self-care (01) ==
LOC: HO.HBS 08:09
PROVIDERS: PCP Internal Medicine; Visit Provider Surgery
DX: E66.01 Morbid (severe) obesity due to excess calories (principal); Z68.41 Body mass index [BMI] 40.0-44.9, adult
CPT/HCPCS: 99443

== ENCOUNTER → 2023-01-06 08:09 | Outpatient (BNVA) | payer MEDICARE, MEDICAID, SELFPAY | PROVIDERS: PCP Internal Medicine; Visit Provider Surgery ==

== ENCOUNTER 2023-01-31 09:29 | Outpatient (REF) | payer MEDICARE, MEDICAID, SELFPAY ==
[2023-01-31 16:24] LABS: CT PCR NOT DETECTED (Not Detect.); NG PCR NOT DETECTED (Not Detect.)
[2023-02-01 11:18] LABS: BV Int Neg Control Negative (Negative); BV Int Pos Control Positive (Positive)
[2023-02-03 06:23] LABS: HPV mRNA E6/E7 rflx Not Detected (Not Detected)
== END 2023-01-31 09:30 | disposition home or self-care (01) ==
LOC: HO.LNP 09:29
PROVIDERS: PCP Internal Medicine; Visit Provider Advanced Practice Midwife
DX: Z13.89 Encounter for screening for other disorder (principal)
CPT/HCPCS: 0353U; 87480; 87510; 87624; 87660; 88142

== ENCOUNTER 2023-01-31 10:36 | Outpatient (REF) | payer MEDICARE, MEDICAID, SELFPAY ==
[2023-01-31 12:51] LABS: HBsAGNum1 0.36 S/CO (0.00-0.99); HIV AB/AG Nonreactive (Nonreactive); HIV Num 1 0.05 S/CO (0.00-0.99); Hepatitis B Surface Antigen Negative (Negative); ~HepC Num1 0.11 S/CO (0.00-0.79); ~Hepatitis C Antibody Nonreactive (Nonreactive)
[2023-01-31 12:52] LABS: Syphilis Screen Nonreactive (Nonreactive)
== END 2023-01-31 10:37 | disposition home or self-care (01) ==
LOC: HO.LAB 10:36
PROVIDERS: PCP Physician Assistant; Visit Provider Advanced Practice Midwife
DX: Z01.419 Encounter for gynecological examination (general) (routine) without abnormal findings (principal); N81.2 Incomplete uterovaginal prolapse; Z20.2 Contact with and (suspected) exposure to infections with a predominantly sexual mode of transmission; K59.00 Constipation, unspecified; E66.01 Morbid (severe) obesity due to excess calories; Z68.41 Body mass index [BMI] 40.0-44.9, adult; Z87.42 Personal history of other diseases of the female genital tract
CPT/HCPCS: 0353U; 86780; 86803; 87340; 87389; 87480; 87510; 87624; 87660; 88142

== ENCOUNTER 2023-02-03 12:50 | Outpatient (REF) | payer MEDICARE, MEDICAID, SELFPAY ==
--- NOTE | ~2023-02-03 | US_ITS ---
EXAMINATION: US PELVIS CLINICAL INFORMATION: Confirm IUD placement. COMPARISON: Pelvic ultrasound 02/20/2019. TECHNIQUE: Ultrasound of the pelvis is performed using both transabdominal and transvaginal transducers along with Doppler. Transvaginal imaging is performed due to inadequate visualization transabdominally. FINDINGS: The uterus is anteverted and anteflexed measuring 11 x 4.2 x 3.7 cm. No uterine lesion. An IUD is in satisfactory positioning within the endometrial canal. Multiple simple appearing nabothian cysts overlie the cervix. Limited visualization of the ovaries, the left ovary was only visualized on transabdominal examination. The right ovary measures approximately 2.7 x 2 x 2.5 cm, 7 mL. The left ovary measures approximately 2.4 x 1.5 x 1.6 cm, 3 mL. No discrete adnexal mass or significant amount of free fluid. US/US pelvic and transvaginal IMPRESSION: 1. The IUD is in satisfactory positioning within the endometrial canal. 2. Limited visualization of the ovaries secondary to patient body habitus and shadowing from bowel gas.
== END 2023-02-03 12:51 | disposition home or self-care (01) ==
LOC: HO.LAB 12:50
PROVIDERS: PCP Internal Medicine; Visit Provider Advanced Practice Midwife
DX: Z30.433 Encounter for removal and reinsertion of intrauterine contraceptive device (principal); Z79.899 Other long term (current) drug therapy
CPT/HCPCS: 58300; 58301; 76830; 76856; 99212; J7298

== ENCOUNTER 2023-02-03 13:37 | Outpatient (AMB) | payer MEDICARE, MEDICAID, SELFPAY ==
--- NOTE | 2023-02-03 13:38 | MHC.OFFVIS ---
Intake Vital Signs 02/03/23 13:43 Height 5 ft 6 in Weight 117.991 kg BMI 42.0 BP 124/86 Blood Pressure Location Lt brachial Position Sitting Intake Visit Reasons: Mirena removal and insertion Allergies mushroom Allergy (Mild, Verified 02/03/23 13:47) THROAT CLOSING Medication List - Last Reconciled 02/03/23 by Yoli Rivera CNM albuterol sulfate 90 mcg/actuation (ProAir HFA) 2 puffs inhalation Q4-6H PRN 30 days bupropion HCl 150 mg PO QAM clindamycin phosphate 1% 1 appl topical DAILY dextroamphetamine-amphetamine 20 mg (Adderall) 20 mg PO DAILY docusate sodium (Colace) 100 mg PO DAILY doxycycline hyclate 300 mg PO DAILY fluticasone propionate 50 mcg/actuation 2 sprays intranasal DAILY levonorgestrel (Mirena) intrauterine mecobalamin (vitamin B12) 1,000 mcg sublingual DAILY melatonin 3 mg PO BEDTIME PRN omeprazole 20 mg PO BID topiramate 50 mg PO DAILY ustekinumab (Stelara) 90 mg subcut Q4W Is last menstrual period known: Yes Last menstrual period: 01/30/23 HPI Mirena removal and insertion HPI Details Patient was here this week for a ob/gyn annual exam and full discussion about replacement of the Mirena as well as other issues including health and weight overall and her prolapsed uterus and Kegel's and issues with that she blake had started her menses and decision was made to have her return as soon as possible this week hopefully still with her. For replacement of the Mirena her previous Mirena had been in for longer than it was useful and her periods had returned and she very much does not want to get Patient states her period was heavy yesterday and the day before but practically nothing today. She had sex last night. We are awaiting a urine to do a test. [facility] Medical History Smoking Insomnia ADHD Transaminitis Super-super obese Shortness of breath Onychogryposis Encounter for observation for other suspected diseases and conditions ruled out History of drug use History of peptic ulcer Morbid obesity with BMI of 45.0-49.9, adult Asthma Sciatica Low back pain Bipolar 1 disorder GERD (gastroesophageal reflux disease) Anxiety Depression PTSD (post-traumatic stress disorder) Surgical History History of section H/O dilation and curettage H/O abdominal surgery Family History Father Chronic mental illness Hyperlipidemia HTN (hypertension) Mother Chronic mental illness Obesity Brother No problems noted. Brother No problems noted. Son ADHD Son ADHD Family/Other Substance use disorder Maternal Grandfather Colon cancer Social History Housing: Apartment Alcohol intake: current Alcohol intake frequency: a few times a week Patient Tobacco Use Status: Former Tobacco user Tobacco use type: Cigarette e-Cigarette/Vaping Use: Never Used Second Hand Smoke Exposure: No service: No Current occupational status: unemployed Female Reproductive History Menstrual Age of Menarche: 12 Date of last menstrual period: 01/30/23 Physical Exam Vital Signs: Last Vital Signs BP 124/86 02/03/23 13:43 BMI result Body Mass Index 42.0 Office Procedures IUD Insert/Removal Details Details: ---Patient is here for her IUD removal and insertion. Bimanual exam was done. Her uterus is firm, nontender, and appropriate sized( noted to be larger) and is prolapsing down slightly this has been noted at previous exams also . The original mirena IUD strings were grasped with ring forceps, after teasing out with Cytobrush, and as patient coughed the IUD was removed easily with 1 tug. ---The cervix was cleaned with Betadine. Tenaculum was placed on the cervix slowly to minimize cramping. The uterus was sounded slowly and gently she show a measurement of 10.5 cm. The IUD was removed from its package, after checking identifying information and lot dates and expiration dates and and gently inserted into the os, as per the IUD insertion procedure. Patient experienced increased pain at the moment of Mirena deployment. The strings were then trimmed to 3-4 centimetres. The tenaculum was removed and gentle pressure applied with a swab, until any bleeding subsided from the tenaculum sites. The speculum was gently removed. The patient sat up. Given the patient's increased pain at deployment, in to her uterus decision made to obtain a stat ultrasound to verify position of the Mirena IU S as intrauterine and to double check that there has been no perforation in this process. The patient has gone to ultrasound now and call will be to me regarding the IUDs placement I Reviewed what to expect, and what indications would necessitate a call. Pt to call for fever, untoward pain or cramping. I reviewed any appropriate backup method. Pt to return for recheck as scheduled. [id number] Insertion Procedure code (CPT) selection complete Office Meds Mirena 21 mcg/24 hours (8 yrs) 52 mg intrauterine device Performing Provider: Yoli Rivera CNM Performing Location: [facility] Administered by: Madeline Obrien CMA on 02/03/23 15:10 Dose Route Admin Location Dispensed Lot Number Expiration Date [facility] [employer] 1 device intrauterine [facility] 1 device [id number] 03/02/25 33801-548-13 [employer] Results Reviewed Results Reviewed: preg test neg Assessment & Plan Assessment & Plan (1) Presence of 52 mg levonorgestrel-releasing intrauterine device (IUD): Comment: Has been in for 6 years. menses have returned. very much needs reliable contraception; to be replaced this week, Increased pain at deployment of Mirena I stat ultrasound requested to double check position now please. 1655-iud is correctly situated in uterus per u/s... Code(s): Z97.5 - Presence of (intrauterine) contraceptive device Plan ius/iud is in correct place. pt needs to return in 6w for iud check. i rec no sex while she is bleeeding. I called her and reviewed danger signs and what to look for and if she did have any severe pain or other issues she would have to go to the emergency room but other than that we will see her in a 4-6 weeks to see how this is doing she still crampy and she can take Tylenol or ibuprofen for that. Orders: Orders AMB HCG Urine Test 02/03/23 Z32.02 - Encounter for test, result negative US pelvic and transvaginal 02/03/23 Z97.5 - Presence of (intrauterine) contraceptive device US pelvic and transvaginal 02/03/23 Z97.5 - Presence of (intrauterine) contraceptive device AMB IUD Insertion/Removal - Practice Supplied 02/03/23 Z30.430 - Encounter for insertion of intrauterine contraceptive device Coding Level of Care Code Est Pt Level 4 (29864) Diagnoses Presence of 52 mg levonorgestrel-releasing intrauterine device (IUD) Z97.5 CPT Codes Details - CPT: 71539-EVW Insertion ([id number])
[2023-02-03 13:43] VITALS: BP 124/86; BMI 42.0
== END 2023-02-03 15:21 | disposition home or self-care (01) ==
LOC: HO.HWS 13:37
PROVIDERS: PCP Internal Medicine; Visit Provider Advanced Practice Midwife
DX: Z30.430 Encounter for insertion of intrauterine contraceptive device (principal)
CPT/HCPCS: 58300; 58301; 99214

== ENCOUNTER 2023-02-06 08:00 | Outpatient (AMB) | payer MEDICARE, MEDICAID, SELFPAY ==
--- NOTE | 2023-02-06 09:51 | A.OFFVIS_ITS ---
Intake VS Expanded 02/06/23 09:52 Height 5 ft 6 in Weight 252 lb 8 oz BMI 40.8 Body Fat % 43.9 Body Fat Mass 111.7 Fat Free Mass 142.8 Body Water % 41.4 Body Water Mass 105.4 Intake Visit Reasons: TV Follow Up SWL Allergies mushroom Allergy (Mild, Verified 02/03/23 13:47) THROAT CLOSING HPI TV Follow Up SWL HPI Details Start time: 9.50am, End time: 10.20am ?I spent 25 minutes speaking with the patient on the phone plus an additional 5 minutes reviewing and updating records for a total of 30 minutes HPI Comments History of Present Illness Details Overall weight loss: 21lbs, or 7.67% TBWL Is doing 2 Premier protein shakes (HALF scoop in almond milk), 2 Zone Perfect protein bars and one meal (10 forks of protein and 10 forks of salad or vegetables) Exercise: is doing the stationary bike, or walking outside [facility] Medical History Smoking Insomnia ADHD Transaminitis Super-super obese Shortness of breath Onychogryposis Encounter for observation for other suspected diseases and conditions ruled out History of drug use History of peptic ulcer Morbid obesity with BMI of 45.0-49.9, adult Asthma Sciatica Low back pain Bipolar 1 disorder GERD (gastroesophageal reflux disease) Anxiety Depression PTSD (post-traumatic stress disorder) Surgical History History of section H/O dilation and curettage H/O abdominal surgery Family History Father Chronic mental illness Hyperlipidemia HTN (hypertension) Mother Chronic mental illness Obesity Brother No problems noted. Brother No problems noted. Son ADHD Son ADHD Family/Other Substance use disorder Maternal Grandfather Colon cancer Social History Housing: Apartment Alcohol intake: current Alcohol intake frequency: a few times a week Patient Tobacco Use Status: Former Tobacco user Tobacco use type: Cigarette e-Cigarette/Vaping Use: Never Used Second Hand Smoke Exposure: No service: No Current occupational status: unemployed Female Reproductive History Menstrual Age of Menarche: 12 Physical Exam Vital Signs: BMI result Body Mass Index 41.1 Assessment & Plan Assessment & Plan (1) Morbid obesity with BMI of 45.0-49.9, adult: Code(s): E66.01 - Morbid (severe) obesity due to excess calories; Z68.42 - Body mass index [BMI] 45.0-49.9, adult Plan: 1. Plan for lap sleeve gastrectomy including upper GI endoscopy. All tests has been completed and reviewed and the patient is cleared for the surgery. ?If diaphragmatic or ventral hernias are present at time of surgery, these will be repaired laparoscopically as well. Risks and complications were discussed in detail including possible conversion to an open procedure, anastomotic leak, bleeding requiring transfusion, small bowel obstruction, , DVT and pulmonary embolism, cardiac, or pulmonary complications, as manager long term care complications such as anastomotic ulcer, insufficient weight loss and vitamin deficiencies. I emphasized the importance of close follow-up, adherence to instructions and good communication. So far she has proven to be an excellent communicator and very compliant with all our directions accomplishing a great weight loss. I believe that she is an excellent candidate and she is ready. 2. Please change nutritional plan to 2 Premier protein shakes (HALF scoop each in 8oz almond milk) at 8am-10am and 11am-1pm, lunch at 2pm (10 forks of protein and 10 forks of salad or vegetables) and THREE Zone Perfect protein bars at 4pm- 6pm, 7pm-9pm and 10pm-12am. 3. Do the stationary bike daily for 300 calories using the watch to track them for a goal of burning 2000 calories per week 4. Send weight measurements weekly on Fridays (2) Morbid obesity: Code(s): E66.01 - Morbid (severe) obesity due to excess calories Telehealth Telehealth Location of provider rendering services: practice address Location of patient: address on file Patient Identification confirmed using: Name, : Yes Telehealth method: voice only Patient verbally consented to treatment: Yes Patient verbally consented to billing insurance company: Yes Patient informed of any privacy concerns related to visit: Yes Minutes spent on Phone/Video with Pt.: 30 Coding Level of Care Code Tele Est Pt Level 4 (97001) Diagnoses Morbid obesity with BMI of 45.0-49.9, adult E66.01; Z68.42 Morbid obesity E66.01 Time Spent (min) 30
[2023-02-06 09:52] VITALS: BMI 40.8
== END 2023-02-06 10:22 | disposition home or self-care (01) ==
LOC: HO.HBS 08:00
PROVIDERS: PCP Internal Medicine; Visit Provider Surgery
DX: E66.01 Morbid (severe) obesity due to excess calories (principal); Z68.41 Body mass index [BMI] 40.0-44.9, adult
CPT/HCPCS: 99443

== ENCOUNTER → 2023-02-06 08:00 | Outpatient (BNVA) | payer MEDICARE, MEDICAID, SELFPAY | PROVIDERS: PCP Internal Medicine; Visit Provider Surgery ==

== ENCOUNTER 2023-02-10 08:41 | Outpatient (AMB) | payer MEDICARE, MEDICAID, SELFPAY ==
--- NOTE | 2023-02-10 12:11 | A.OFFVIS_ITS ---
Intake VS Expanded 02/10/23 12:21 Height 5 ft 6 in Weight 251 lb 8 oz BMI 40.6 Body Fat % 52.9 Body Fat Mass 133.2 Fat Free Mass 118.6 Visceral Fat Rating 22 Body Water % 32.3 Body Water Mass 81.3 Basal Metabolic Rate/Score 1,521 Intake Visit Reasons: TV Pre Op LSG 02/16/23 Allergies mushroom Allergy (Mild, Verified 02/10/23 12:12) THROAT CLOSING Medication List - Last Reconciled 02/10/23 by Amol Brink MD albuterol sulfate 90 mcg/actuation (ProAir HFA) 2 puffs inhalation Q4-6H PRN 30 days bupropion HCl 150 mg PO QAM clindamycin phosphate 1% 1 appl topical DAILY dextroamphetamine-amphetamine 20 mg (Adderall) 20 mg PO DAILY docusate sodium (Colace) 100 mg PO DAILY doxycycline hyclate 300 mg PO DAILY fluticasone propionate 50 mcg/actuation 2 sprays intranasal DAILY levonorgestrel (Mirena) intrauterine mecobalamin (vitamin B12) 1,000 mcg sublingual DAILY melatonin 3 mg PO BEDTIME PRN ondansetron 4 mg PO Q6H PRN pantoprazole 40 mg PO DAILY polyethylene glycol 3350 (Miralax) 17 grams PO DAILY sucralfate 10 mL PO BID topiramate 50 mg PO DAILY ustekinumab (Stelara) 90 mg subcut Q4W HPI TV Pre Op LSG 02/16/23 HPI Details Start time: 12pm, End time: 12.30pm ?I spent 25 minutes speaking with the patient on the phone plus an additional 5 minutes reviewing and updating records for a total of 30 minutes HPI Comments History of Present Illness Details Overall weight loss: 22lbs, or 8.04% TBWL Is doing 5 Premier shakes per day with one scoop each in 8oz almond milk [facility] Medical History Smoking Insomnia ADHD Transaminitis Super-super obese Shortness of breath Onychogryposis Encounter for observation for other suspected diseases and conditions ruled out History of drug use History of peptic ulcer Morbid obesity with BMI of 45.0-49.9, adult Asthma Sciatica Low back pain Bipolar 1 disorder GERD (gastroesophageal reflux disease) Anxiety Depression PTSD (post-traumatic stress disorder) Surgical History History of section H/O dilation and curettage H/O abdominal surgery Family History Father Chronic mental illness Hyperlipidemia HTN (hypertension) Mother Chronic mental illness Obesity Brother No problems noted. Brother No problems noted. Son ADHD Son ADHD Family/Other Substance use disorder Maternal Grandfather Colon cancer Social History Housing: Apartment Alcohol intake: current Alcohol intake frequency: a few times a week Patient Tobacco Use Status: Former Tobacco user Tobacco use type: Cigarette e-Cigarette/Vaping Use: Never Used Second Hand Smoke Exposure: No service: No Current occupational status: unemployed Female Reproductive History Menstrual Age of Menarche: 12 Assessment & Plan Assessment & Plan (1) Morbid obesity with BMI of 40.0-44.9, adult: Code(s): E66.01 - Morbid (severe) obesity due to excess calories; Z68.41 - Body mass index [BMI] 40.0-44.9, adult Plan: 1. Plan for lap sleeve gastrectomy including upper GI endoscopy. All tests has been completed and reviewed and the patient is cleared for the surgery. ?If diaphragmatic or ventral hernias are present at time of surgery, these will be repaired laparoscopically as well. Risks and complications were discussed in detail including possible conversion to an open procedure, anastomotic leak, bleeding requiring transfusion, small bowel obstruction, , DVT and pulmonary embolism, cardiac, or pulmonary complications, as press tender long goods complications such as anastomotic ulcer, insufficient weight loss and vitamin deficiencies. I emphasized the importance of close follow-up, adherence to instructions and good communication. So far she has proven to be an excellent communicator and very compliant with all our directions accomplishing a great weight loss. I believe that she is an excellent candidate and she is ready. 2. Preop prescriptions were provided and explained the purpose of each one. Need to be purchased preop. Start Pantoprazole now as you get it from the pharmacy, 1 pill per day. Sucralfate and Zofran are for after surgery as needed. 3. Bowel prep: please do 7 packets ?of Miralax mixing each one with a an 8oz glass of water, crystal light, gatorade zero, or propel ?on 02/14/23 and the same amount on 02/15/23. Continue the protein shakes during? the bowel prep. 4. Needs to purchase 1oz medicine cups . 5. Needs to purchase Children's liquid Tylenol for postop pain control. 6. She needs to stop all the Adderall on 02/14/23 (last pill that day). Avoid aspirin, motrin, Advil, Aleve, Ibuprofen, Naproxyn. Tylenol is OK. 7. She needs to purchase the Celebrate 4:1 protein shakes from the hospital's gift shop. 8. Will do basic preop blood work-up tomorrow 02/11/23 fasting for 12 hours and is scheduled to see the Anesthesiologist prior to the day of surgery. 9. Importance of adherence to postop folllow-up and recommendations was underscored and she understands that. 10. Continue to avoid food and bars and continue with 5 powdered Premier protein shakes (ONE scoop EACH in 8oz almond milk) at 7am-9am, 10am-12pm, 1pm-3pm, 4pm- 6pm and at 7pm-9pm 11. No soups, broths or V8 12. The patient's?medical?history has been reviewed and they are considered low risk for post op DVT and therefore DVT prophylaxis is not considered necessary. Travel after surgery was reviewed. The patient has not disclosed any travel plans during the first 30 days after surgery and they have been advised that within the first 30 days after surgery any bus, plane, train or car travel over 2 hours in duration is contraindicated due to the possibility of developing blood clots from immobility. Any travel, needs to include periods of ambulation of 10 minutes in duration every 2 hours.? Patient was instructed to discuss any plans for travel during this period with their bariatric surgeon.? 13. Please take at the day of surgery the following medications: NONE 14. Stop any control pills and don't use them for one month after surgery 15. Absolutely no smoking or vaping, or marijuana until the surgery and for at least the first 4 weeks. Only nicotine patches are allowed. 16. Send me weight measurements on the day of surgery before you go to the hospital. 17. Avoid any steroids by mouth for any reason. Let me know if someone prescribes them to you Orders: Orders TSH reflex Free T4 Today E66.01 - Morbid (severe) obesity due to excess calories Type and Screen Today E66.01 - Morbid (severe) obesity due to excess calories Partial Thromboplastin Time Today E66.01 - Morbid (severe) obesity due to excess calories Insulin Today E66.01 - Morbid (severe) obesity due to excess calories Comprehensive Met. Panel Today E66.01 - Morbid (severe) obesity due to excess calories Prothrombin Time INR Today E66.01 - Morbid (severe) obesity due to excess roni ories C Reactive Protein Today E66.01 - Morbid (severe) obesity due to excess calories Lipid Panel Today E66.01 - Morbid (severe) obesity due to excess calories Hemoglobin A1c Today E66.01 - Morbid (severe) obesity due to excess calories Complete Blood Count Auto Diff Today E66.01 - Morbid (severe) obesity due to excess calories Medications: New pantoprazole 40 mg PO DAILY 30 tabs 2RF K21.9 - Gastro-esophageal reflux disease without esophagitis sucralfate 10 mL PO BID 400 mL 2RF K21.9 - Gastro-esophageal reflux disease without esophagitis ondansetron ONLY use if you have nausea as needed 4 mg PO Q6H PRN 20 tabs 0RF nausea and vomiting R11.0 - Nausea polyethylene glycol 3350 (Miralax) Mix each packet with 8oz of water, Crystal light, or Gatorade zero, or Propel and do 7 packets on 02/14/23 and another 7 packets on 02/15/23 17 grams PO DAILY 14 ea 0RF Z01.818 - Encounter for other preprocedural examination Telehealth Telehealth Location of provider rendering services: practice address Location of patient: address on file Patient Identification confirmed using: Name, : Yes Telehealth method: voice only Patient verbally consented to treatment: Yes Patient verbally consented to billing insurance company: Yes Patient informed of any privacy concerns related to visit: Yes Minutes spent on Phone/Video with Pt.: 30 Coding Level of Care Code Est Pt Level 4 (25701) Diagnoses Morbid obesity with BMI of 40.0-44.9, adult E66.01; Z68.41 Time Spent (min) 30
[2023-02-10 12:21] VITALS: BMI 40.6
== END 2023-02-10 12:31 | disposition home or self-care (01) ==
LOC: HO.HBS 08:41
PROVIDERS: PCP Internal Medicine; Visit Provider Surgery
DX: E66.01 Morbid (severe) obesity due to excess calories (principal); Z68.41 Body mass index [BMI] 40.0-44.9, adult
CPT/HCPCS: 99214

== ENCOUNTER → 2023-02-10 08:41 | Outpatient (BNVA) | payer MEDICARE, MEDICAID, SELFPAY | PROVIDERS: PCP Internal Medicine; Visit Provider Surgery | DX: E66.01 Morbid (severe) obesity due to excess calories (principal); Z68.41 Body mass index [BMI] 40.0-44.9, adult | CPT/HCPCS: 99212 ==

== ENCOUNTER 2023-02-11 07:40 | Outpatient (REF) | payer MEDICARE, MEDICAID, SELFPAY ==
[2023-02-11 07:57] LABS: MANUAL DIFF FLAG NO
[2023-02-11 08:31] LABS: Basophils Percent Auto 0.5 % (0-2); Eosinophils Absolute Auto 0.1 X10*3/uL (0.0-0.4); Eosinophils Percent Auto 1.3 % (0-4); Hematocrit 43.5 % (37.0-47.0); Hemoglobin 14.7 g/dl (12.0-16.0); Imm Gran Abs Auto 0.01 X10*3/uL (0.00-0.03); Imm Gran Pct Auto 0.2 % (0.0-0.4); Lymphocytes Absolute Auto 1.7 X10*3/uL (1.2-4.9); Mean Corpuscular HGB Conc 33.8 g/dl (31.0-35.0); Mean Corpuscular Hemoglobin 31.3 pg (27.0-33.0); Mean Corpuscular Volume 92.6 fL (80.0-98.0); Mean Platelet Volume 11.2 fL (9.4-12.3); Monocytes Absolute Auto 0.6 X10*3/uL (0.1-1.2); Monocytes Percent Auto 8.8 % (2-11); Neutrophils Absolute Auto 3.9 x10*3/uL (2.0-8.3); Neutrophils Percent Auto 62.2 % (45-73); Platelet Count 244 X10*3/uL (160-400); Red Cell Distribution Width 11.8 % (11.0-16.0); White Blood Count 6.2 X10*3/uL (4.8-10.8)
[2023-02-11 08:38] LABS: Estimated Average Glucose 100 mg/dL; Hemoglobin A1c % 5.1 % (<6.0)
[2023-02-11 08:39] LABS: INTERNATIONAL NORM RATIO 0.9 (0.9-1.1); Prothrombin Time 11.5 SEC (11.1-13.3)
[2023-02-11 08:42] LABS: Partial Thromboplastin Time 33.7 SEC (26.0-36.4)
[2023-02-11 08:57] LABS: Alanine Aminotransferase 29 U/L (0-31); Albumin Level 4.6 g/dL (3.5-5.0); Alkaline Phosphatase 65 U/L (39-117); Anion Gap 13 (12-20); Aspartate Amino Transferase 31 U/L (5-31); Bilirubin Total 0.5 mg/dL (0.0-1.0); Blood Urea Nitrogen 8 mg/dL (9-16); C Reactive Protein 0.29 mg/dL (< or = 0.50); Calcium 9.7 mg/dL (8.4-10.2); Carbon Dioxide 24 mmol/L (22-29); Chloride 107 mmol/L (96-108); Cholesterol 145 mg/dL (<200); Estimated Glomerular Filt Rate > 60; Glucose Random 89 mg/dL (60-115); HDL Cholesterol 45 mg/dL (>40); LDL Cholesterol Calculated 86 mg/dL (<100); Potassium 3.7 mmol/L (3.3-5.1); Sodium 140 mmol/L (135-145); Total Protein 7.6 g/dL (6.5-8.0); Triglycerides 71 mg/dL (<150)
[2023-02-11 09:11] LABS: Insulin 8 uU/mL (2-29); TSH reflex Free T4 2.15 uIU/mL (0.32-4.0)
[2023-02-13 08:04] LABS: HBsAGNum1 0.29 S/CO (0.00-0.99); HIV AB/AG Nonreactive (Nonreactive); HIV Num 1 0.06 S/CO (0.00-0.99); Hepatitis B Surface Antigen Negative (Negative); ~HepC Num1 0.04 S/CO (0.00-0.79); ~Hepatitis C Antibody Nonreactive (Nonreactive)
[2023-02-13 08:06] LABS: Syphilis Screen Nonreactive (Nonreactive)
== END 2023-02-11 07:41 | disposition home or self-care (01) ==
LOC: HO.LAB 07:40
PROVIDERS: Surgery; PCP Internal Medicine; Visit Provider Advanced Practice Midwife
DX: E66.01 Morbid (severe) obesity due to excess calories (principal); Z20.2 Contact with and (suspected) exposure to infections with a predominantly sexual mode of transmission; Z11.59 Encounter for screening for other viral diseases; Z72.89 Other problems related to lifestyle
CPT/HCPCS: 36415; 80053; 80061; 83036; 83525; 84443; 85025; 85610; 85730; 86140; 86780; 86803; 87340; 87389

== ENCOUNTER → 2023-02-15 13:32 | Outpatient (BNVA) | payer MEDICARE, MEDICAID, SELFPAY | PROVIDERS: PCP Internal Medicine; Visit Provider Surgery ==

== ENCOUNTER 2023-02-16 07:57 | Inpatient (IN) | payer MEDICARE, MEDICAID, SELFPAY ==
--- NOTE | 2023-02-10 21:11 | MHC.SHP ---
Pre-Procedural Eval Section A Date of Service: 02/10/23 The patient is an INPATIENT: Yes The History & Physical has been completed within 30 days and I have reviewed it.: Yes Section B Chief Complaint: Morbid (severe) obesity due to excess calories Relevant Family History (Specify if Yes): No Relevant Social History: None Present Medications: None Medical History: No relevant PMH History of Previous Operations: No relevant previous surgery Allergies: Allergies Allergy/AdvReac Type Severity Reaction Status Date / Time mushroom Allergy Mild THROAT Verified 02/10/23 12:12 CLOSING Review of Systems Sugical H&P ROS: Negative: Constitution, Cardiovascular, Respiratory, Neurological, Psychiatric, Hem-Onc, Allergic/Immunologic, Gastrointestinal, Genitourinary, Musculoskeletal, Integumentary, Endocrine and Eyes/Ears/Nose/Throat Exam Surgical H&P Exam: Normal: HEENT, Normal: Heart, Normal: Lungs, Normal: Extremities, Normal: Abdomen, Normal: Skin and Normal: Neurological Plan Diagnosis/Plan: Unchanged I have reviewed the history and physical and performed a pertinent physical examination on my patient. No changes have occurred unless specified. Time Spent With Patient Time: Total time managing care of this patient today ____ minutes.
[2023-02-14 10:38] VITALS: BMI 40.5
--- NOTE | 2023-02-15 09:14 | HO.ANESPROP2 ---
Documented by User: Jennifer Ruff NP 02/15/23 09:17 HPI - Anesthesia Eval Consult details Narrative: 32yo F for Gastrectomy Sleeve- EGD, possible diaphragmatic hernia, possible ventral hernia, possible open PMFSH Active Problems Active Problems: All Active Problems (Updated 02/14/23 @ 10:35 by Cornelia Carlin RN) Cervical cancer screening (Acute) Morbid obesity (Acute) Presence of 52 mg levonorgestrel-releasing intrauterine device (IUD) (Acute) Cervical prolapse (Acute) Constipation (Acute) Morbid obesity with BMI of 40.0-44.9, adult (Acute) Adult general medical exam (Acute) Vitamin B12 deficiency (Acute) Yeast dermatitis (Acute) Pelvic floor weakness (Acute) Hx of abnormal cervical Pap smear (Acute) Screen for sexually transmitted diseases (Acute) Shortness of breath (Acute) Encounter for observation for other suspected diseases and conditions ruled out (Acute) Insomnia (Acute) PTSD (post-traumatic stress disorder) (Acute) ADHD (Acute) Transaminitis (Acute) Asthma (Acute) Bipolar 1 disorder (Acute) GERD (gastroesophageal reflux disease) (Acute) Super-super obese (Acute) Onychogryposis (Acute) History of drug use (Acute) Morbid obesity with BMI of 45.0-49.9, adult (Acute) Past Medical History Medical History (Updated 02/16/23 @ 08:57 by Amol Brink MD) Psoriasis Cervical cancer screening Smoking Insomnia ADHD Transaminitis Super-super obese Onychogryposis History of drug use History of peptic ulcer Morbid obesity with BMI of 45.0-49.9, adult Asthma Sciatica Low back pain Bipolar 1 disorder GERD (gastroesophageal reflux disease) Anxiety Depression PTSD (post-traumatic stress disorder) Family History Family History Father Chronic mental illness Hyperlipidemia HTN (hypertension) Mother Chronic mental illness Obesity Brother No problems noted. Brother No problems noted. Son ADHD Son ADHD Family/Other Substance use disorder Maternal Grandfather Colon cancer Surgical History Surgical History History of section H/O dilation and curettage H/O abdominal surgery Social History Social History (Updated 02/16/23 @ 08:58 by Giselle Boss MD) Housing: Apartment Are you a primary insurance healthcare consultant to a significant other at home: No Do you presently have visiting nurse or other home services: No Alcohol intake: current Alcohol intake frequency: a few times a month Patient Tobacco Use Status: Former Tobacco user Quit Date: 01/16/23 Tobacco use type: Cigarette e-Cigarette/Vaping Use: Never Used Second Hand Smoke Exposure: No service: No Current occupational status: unemployed Meds Allergies Allergy/AdvReac Type Severity Reaction Status Date / Time mushroom Allergy Mild THROAT Verified 02/10/23 12:12 CLOSING Home Medications Medication Instructions Recorded Confirmed Last Taken Type ustekinumab 90 mg/mL subcutaneous 90 mg subcut Q4W 01/27/20 02/16/23 02/15/23 History syringe (Stelara) clindamycin phosphate 1 % topical 1 appl topical DAILY 08/25/22 02/14/23 02/14/23 History gel doxycycline hyclate 100 mg capsule 100 mg PO BID 08/25/22 02/16/23 02/14/23 History melatonin 3 mg capsule 3 mg PO BEDTIME PRN Insomnia 08/25/22 02/14/23 02/14/23 History topiramate 25 mg tablet 50 mg PO DAILY 08/25/22 02/14/23 02/14/23 History levonorgestrel 21 mcg/24 hours (8 intrauterine 02/03/23 02/10/23 Unknown History yrs) 52 mg intrauterine device (Mirena) bupropion HCl 300 mg 24 hr tablet, 300 mg PO DAILY 02/16/23 02/16/23 02/14/23 History extended release dextroamphetamine-amphetamine ER 1 cap PO DAILY 02/16/23 02/16/23 02/14/23 History 10 mg 24hr capsule,extend release dextroamphetamine-amphetamine ER 1 cap PO DAILY 02/16/23 02/16/23 02/14/23 History 20 mg 24hr capsule,extend release Exam Exam Date and Time: February 15, 2023 0914 Height,Weight and Vital Signs: Height 5 ft 6 in Weight 113.852 kg Pertinent Lab Results Pertinent Lab Results: Laboratory Tests 02/11/23 07:56 WBC 6.2 Hgb 14.7 Hct 43.5 Plt Count 244 Sodium 140 Potassium 3.7 Chloride 107 Carbon Dioxide 24 BUN 8 L Creatinine 0.84 Narrative Narrative: EKG 09/2022 Vent. Rate : 080 BPM Atrial Rate : 080 BPM P-R Int : 154 ms QRS Dur : 094 ms QT Int : 388 ms P-R-T Axes : 038 014 021 degrees QTc Int : 447 ms Normal sinus rhythm Normal ECG When compared with ECG of 12-DEC-2019 12:30, No significant change was found Assessment and Plan Assessment Anesthesia Assessment: Chart Reviewed Documented by User: Giselle Boss MD 02/16/23 09:02 [facility] Active Problems Active Problems: All Active Problems (Updated 02/16/23 @ 08:50 by Giselle Boss MD) Morbid obesity BMI 40.5 Presence of 52 mg levonorgestrel-releasing intrauterine device (IUD) (Acute) Cervical prolapse (Acute) Constipation (Acute) Vitamin B12 deficiency (Acute) Pelvic floor weakness (Acute) Hx of abnormal cervical Pap smear (Acute) Screen for sexually transmitted diseases (Acute) Shortness of breath (Acute) Encounter for observation for other suspected diseases and conditions ruled out (Acute) Insomnia (Acute) PTSD (post-traumatic stress disorder) (Acute) ADHD (Acute) Transaminitis (Acute) Asthma (Acute) Bipolar 1 disorder (Acute) GERD (gastroesophageal reflux disease) (Acute) History of drug use (Acute)- patient states years ago Morbid obesity with BMI of 45.0-49.9, adult (Acute) Voice hoarse- patient states because thirsty. Denies any respiratory infection or smoking Past Medical History Medical History (Updated 02/16/23 @ 08:57 by Amol Brink MD) Psoriasis Cervical cancer screening Smoking Insomnia ADHD Transaminitis Super-super obese Onychogryposis History of drug use History of peptic ulcer Morbid obesity with BMI of 45.0-49.9, adult Asthma Sciatica Low back pain Bipolar 1 disorder GERD (gastroesophageal reflux disease) Anxiety Depression PTSD (post-traumatic stress disorder) Family History Family History Father Chronic mental illness Hyperlipidemia HTN (hypertension) Mother Chronic mental illness Obesity Brother No problems noted. Brother No problems noted. Son ADHD Son ADHD Family/Other Substance use disorder Maternal Grandfather Colon cancer Family history of problems with anesthesia: No Surgical History Surgical History History of section H/O dilation and curettage H/O abdominal surgery History of Problems with Anesthesia: No Social History Social History (Updated 02/16/23 @ 08:58 by Giselle Boss MD) Housing: Apartment Are you a primary insurance healthcare consultant to a significant other at home: No Do you presently have visiting nurse or other home services: No Alcohol intake: current Alcohol intake frequency: a few times a month Patient Tobacco Use Status: Former Tobacco user Quit Date: 01/16/23 Tobacco use type: Cigarette e-Cigarette/Vaping Use: Never Used Second Hand Smoke Exposure: No service: No Current occupational status: unemployed Meds Allergies Allergy/AdvReac Type Severity Reaction Status Date / Time mushroom Allergy Mild THROAT Verified 02/10/23 12:12 CLOSING Home Medications Medication Instructions Recorded Confirmed Last Taken Type ustekinumab 90 mg/mL subcutaneous 90 mg subcut Q4W 01/27/20 02/16/23 02/15/23 History syringe (Stelara) clindamycin phosphate 1 % topical 1 appl topical DAILY 08/25/22 02/14/23 02/14/23 History gel doxycycline hyclate 100 mg capsule 100 mg PO BID 08/25/22 02/16/23 02/14/23 History melatonin 3 mg capsule 3 mg PO BEDTIME PRN Insomnia 08/25/22 02/14/23 02/14/23 History topiramate 25 mg tablet 50 mg PO DAILY 08/25/22 02/14/23 02/14/23 History levonorgestrel 21 mcg/24 hours (8 intrauterine 02/03/23 02/10/23 Unknown History yrs) 52 mg intrauterine device (Mirena) bupropion HCl 300 mg 24 hr tablet, 300 mg PO DAILY 02/16/23 02/16/23 02/14/23 History extended release dextroamphetamine-amphetamine ER 1 cap PO DAILY 02/16/23 02/16/23 02/14/23 History 10 mg 24hr capsule,extend release dextroamphetamine-amphetamine ER 1 cap PO DAILY 02/16/23 02/16/23 02/14/23 History 20 mg 24hr capsule,extend release Exam Exam Date and Time: February 16, 2023 08:09 Height,Weight and Vital Signs: Height 5 ft 6 in Weight 113.852 kg Vital Signs Temp Pulse Resp BP Pulse Ox O2 Del Method 02/16/23 08:09 97.6 F 80 18 114/70 97 Room Air Pertinent Lab Results Pertinent Lab Results: Laboratory Tests 02/11/23 07:56 WBC 6.2 Hgb 14.7 Hct 43.5 Plt Count 244 Sodium 140 Potassium 3.7 Chloride 107 Carbon Dioxide 24 BUN 8 L Creatinine 0.84 Lab Results 02/16/23 Range/Units 08:11 Beta HCG, Quant < 2 mIU/mL Blood Type O Positive Antibody Screen NEGATIVE Airway Mallampati Class: II TM Dist: >3cm Neck ROM: Full Loose/Missing/Broken Teeth: Yes (Missing tooth bottom left. Denies broken or loose teeth) Heart: RRR Lungs: CTAB Assessment and Plan Assessment Anesthesia Assessment: Anesthesia Plan Discussed Final Anesthetic Review Family History of Problems with Anesthesia: No History of Problems with Anesthesia: No NPO: Yes ASA Class: III Final Preanesthetic Review: No Changes in Pt Med Stat, Meds/Allgs Chart Reviewed, Consent Obtained/Reviewed and Anes Risks/Benef Reviewed Patient Risk: Intermediate Procedure Risk: Intermediate Assessment/Block/Sedation in SS: Assess/Block/Sedation-SS Anesthetic Plan Anesthetic Plan: GA Disposition: Standard PACU and Inp. Admit - Standard Bed
[2023-02-16] VITALS (11 sets, daily range): BP systolic 110–156; BP diastolic 59–95; PULSE 77–97; RESP 14–20; TEMP 36–36.6; O2SAT 94–100
[2023-02-16] MEDS: Aprepitant 32 MG/4.4 ML VIAL IVPUSH (08:14)
[2023-02-16] MEDS: Lactated Ringers 1,000 ML 999 ML IV (08:14)
[2023-02-16 08:40] LABS: HCG Quantitative < 2 mIU/mL
--- NOTE | 2023-02-16 08:50 | PHA.MEDREC ---
Pharmacy Consult ? Medication Reconciliation Pharmacy has completed the medication reconciliation. PHARMACY HAS REVIEWED MED REC DONE BY NURSING. PDMP REVIEWED FOR CONFIRMATION OF ADDERALL DOSING TABLET FORM ENTERED BY NURSE DIDN'T MATCH CAPSULES THAT WERE CLAIMED BY PHARMACY. PATIENT ONLY FILLS ADDERALL AT ONE PHARMACY SO MED REC WAS UPDATED TO CAPSULE ADDERALL.
--- NOTE | 2023-02-16 08:51 | PM.OP ---
Brief Operative Note Date of Service: 02/16/23 Pre-op diagnosis: Morbid obesity with comorbidities (see below) Post-op diagnosis: same (& congenital abdominal adhesions) Procedure: INITIAL PATIENT BMI ON PRESENTATION AT OUR OFFICE: 44.2 kg/m2 LAST BMI BEFORE SURGERY: 41 kg/m2 COMORBIDITIES: asthma, ADHD, anxiety, depression, bipolar disorder, PTSD, GERD, Insomnia, sciatica, psoriasis ?The patient presented to the Weight Management Program with significant obesity that was negatively impacting the patient's comorbidities as listed above.? The program is a phased program with a special focus on preoperative medical weight management to promote substantial weight loss and prepare the patients for the second phase of the program: bariatric surgery. The patient participated in an intensive weekly lifestyle ?intervention and exercise program during which the patient ?has lost between the initial office visit and the last preoperative visit 27lbs, or 10.01% of initial actual body weight. It was deemed appropriate for the patient to now have bariatric surgery. In light of the current Covid-19 pandemic and the well documented strong association of obesity and increased risk of worse outcomes if infected with Covid-19 (REFERENCES:https://pubmed.ncbi.nlm.nih.gov/00213498/,?https://pubmed.ncbi.nlm.nih.gov/21789902/), any delay in undergoing bariatric surgery may lead to the patient's worsening health condition and increased?risk of more severe Covid-19 disease if infected. In addition a recent?study from [facility] published in [employer] on 03/29/2021 ([email or web address]) found that, among patients with obesity, substantial weight loss achieved with surgery was associated with improved outcomes of COVID-19 infection. The findings suggest that obesity can be a modifiable risk factor for the severity of COVID-19 infection. In addition, the patient met the BMI-criteria for bariatric surgery based on the BMI on initial presentation. The patient should not be penalized for achieving such weight loss because ?it is not sustainable long-term without surgical intervention and it was achieved in preparation for bariatric surgery ?under my direction and based on my published research ([email or web address] and?[email or web address].soard.org/article/[email or web address])98439-X/pdf) ?that a 10% preoperative weight loss improves long-term weight loss after surgery and reduces perioperative complications.? Insurance carriers such as [facility] have endorsed my recommendations ?and have included in their policies criteria to include a 10% preoperative weight loss requirement. PROCEDURE: Esophago-gastroscopy, laparoscopic lysis of adhesions, laparoscopic sleeve gastrectomy and laparoscopic gastropexy INDICATIONS: This is a 32 year-old female who was electively scheduled for laparoscopic, possibly open sleeve gastrectomy. The risks and complications of the procedure were discussed with the patient in advance, particularly the possibility of ; pulmonary embolism; staple line leak; bleeding; GERD; cardiac, pulmonary, or renal complications; as well as long-term problems such as insufficient weight loss, vitamin deficiency, strictures, or ulcers. The patient understood all the risks, and was in agreement to proceed with surgery. DESCRIPTION OF PROCEDURE: After informed consent was obtained from the patient, the patient was given preoperative antibiotics, and was transferred to the operating room. After successful induction of general anesthesia, pneumatic compression devices were placed on both lower extremities. An upper endoscopy was performed next. The oropharynx and esophagus appeared to be within normal limits. There was no diaphragmatic hernia present consistent with the findings of the preoperative upper GI. The stomach was entered. Then after all fluid and air were suctioned and the stomach was fully decompressed, the scope was withdrawn and secured in the mid esophagus. The patient was then prepped and draped in the usual sterile manner, and abdominal access was established at the right upper quadrant with the Lois technique. A 12 mm blunt port was inserted, and the abdomen was insufflated with CO2 to a pressure of 15 mmHg. Under direct visualization, additional ports were placed, specifically two 5 mm Versi-step ports to the left upper quadrant, and a 5 mm Versi-Step port to the right upper quadrant. 1% lidocaine plain was used to infiltrate all port sites as well as all fascia defects. Following that, the patient was placed in a steep reverse Trendelenburg position. An additional 5 mm port was placed to the right flank for the Mediflex retractor that was used to retract the left lobe of the liver. The gastro-esophageal fat pad was opened with the ultrasonic device (Sonincision, PayProp) and the anterior esophagus and hiatus were exposed. The angle of His was opened with the ultrasonic device the fundus of the stomach from any diaphragmatic and splenic attachments. I then opened the gastrocolic ligament between the transverse colon and the greater curvature of the stomach with the ultrasonic device to enter the lesser sac and facilitate the ligation of the short gastric vessels. I started at a mid-point along the greater curvature and using the Sonincision, all short gastric vessels were divided all the way to the angle of His until the left shaina was completely dissected at its entirety. I then divided the gastro-colic ligament distally to a distance of about 3-4 cm proximal to the pylorus. There were extensive congenital adhesions between the pancreas and posterior gastric wall. Those were lysed completely with the ultrasonic device. Adhesiolysis took approximately 45 min to complete. The stomach was then divided transversely with three Endo STEVEN-45 purple and three STEVEN-60 articulating purple loads using the Novate MedicalIA stapler and loads. Every effort was made that the gastric sleeve had a tubular shape and an even caliber throughout. Once the sleeve resection was completed, the staple line of the gastric sleeve was reinforced with Hemoclips. The resected stomach was retrieved without difficulty from the Lois port. A gastropexy was then performed in order to prevent postoperative GERD and partial gastric volvulus. Several interrupted 2.0 Surgidac sutures were placed between the sleeve's staple line and the previously divided greater omentum and gastro-colic ligament using the Endo-Stitch device. ?An upper endoscopy was performed. There was no narrowing at the GE junction. The scope was easily advanced all the way to the pylorus which was clearly visualized. There was no narrowing anywhere and the sleeve's caliber was even throughout. The sleeve's staple line was inspected and there was no evidence of ischemia, bleeding or dehiscence. At that point the gastroscope was withdrawn from the patient?s mouth while we were decompressing the bowel and the stomach from any remaining air. I looked into the lesser sac to see how the sleeve was situating and it was situating well. There was no bleeding from the staple line, spleen, or short gastric vessels. The Mediflex retractor was removed, and the undersurface of the liver was inspected and there was no bleeding. The patient was placed in supine position. I closed the fascial defect of the 12 mm port site with a figure of eight #1 Polysorb suture. Then 30cc Ropivacaine plain with 10 mg of Dexamethasone were used to infiltrate the fascial closure as well as all skin incisions. A total of 6ml Zynrelef was applied in the Lois wound. At this point, the abdomen was deflated, all ports were removed under direct vision, and no bleeding was noted from any of the port sites. The skin incisions were irrigated with saline and were closed with 4-0 absorbable monofilament sutures. Steri-Strips and OpSites were used to cover all incisions. The patient was extubated and was transferred in stable condition to the recovery room for further care. I was present and performed all flores parts of the procedure. Mr. Singh was the first front ventilator. There were no residents to assist with this case. Devin Brink MD, PhD, FACS Surgeon: Amol Brink MD Anesthesia: GETA, local and other (TAP block and 6ml Zynrelef) Was an General Education Instructor used for this Procedure?: No General Education Instructor: Giuseppe Singh Estimated blood loss (mL): 10 IV fluids (mL): 3,000 Urine output (mL): 0 (No Gomez to record output) Pathology: other (Stomach) Condition: stable Disposition: PACU
--- NOTE | 2023-02-16 08:55 | P.PNGS_ITS ---
Subjective Subjective Date of Service: 02/17/23 <Amol Brink MD - Last Filed: 02/17/23 08:07> 02/16/23 <Giselle Boss MD - Last Filed: 02/16/23 09:59> Interval history: Feels well. Mild incisional pain. She is tolerating phase 1 bariatric diet <Amol Brink MD - Last Filed: 02/17/23 08:07> Physical Exam 2 Vital Signs: Vital Signs: Last Vital Signs Temp 97.6 F 02/16/23 08:09 Pulse 80 02/16/23 08:09 Resp 18 02/16/23 08:09 BP 114/70 02/16/23 08:09 Pulse Ox 97 02/16/23 08:09 O2 Del Method Room Air 02/16/23 08:09 BMI result Body Mass Index 40.5 <Amol Brink MD - Last Filed: 02/17/23 08:07> GI: Inspection: Yes normal to inspection, Yes incision (clean, dry and intact) and Yes obesity <Amol Brink MD - Last Filed: 02/17/23 08:07> Extrem: Right lower extremity: normal to inspection <Amol Brink MD - Last Filed: 02/17/23 08:07> Left lower extremity: normal to inspection <Amol Brink MD - Last Filed: 02/17/23 08:07> Objective Data Active Medications Albuterol Sulfate (Albuterol Sulfate (0.083%) 2.5 Mg/3 Ml Vial.Neb) 2.5 mg INHALE ONCE PRN PRN Reason: Shortness of Breath/Wheezing Lactated Ringer's (Lr) 1,000 mls @ 100 mls/hr IVCONT .Q10H JOSÉ Lactated Ringer's (Lr) 1,000 mls @ 999 mls/hr IV .Q1H1M JOSÉ Stop: 02/16/23 10:00 Last Admin: 02/16/23 08:14 Dose: 999 mls/hr Documented By: CIARRA <Amol Brink MD - Last Filed: 02/17/23 08:07> Labs CBC & Chem 7: 02/17/23 05:00 02/17/23 05:00 <Amol Brink MD - Last Filed: 02/17/23 08:07> Labs: Laboratory Results - last 24 hr 02/16/23 08:11 Beta HCG, Quant < 2 <Amol Brink MD - Last Filed: 02/17/23 08:07> Procedures Date of Service Date of Service: 02/17/23 <Amol Brink MD - Last Filed: 02/17/23 08:07> 02/16/23 <Giselle Boss MD - Last Filed: 02/16/23 09:59> Progress Note: A&P Assessment and plan (1) Morbid obesity: Status: Acute <Amol Brink MD - Last Filed: 02/17/23 08:07> Assessment and Plan: s/p laparoscopic sleeve gastrectomy, lysis of adhesions and gastropexy Doing well Will check am labs and if OK the patient will be discharged home <Amol Brink MD - Last Filed: 02/17/23 08:07> (2) PTSD (post-traumatic stress disorder): Status: Acute <Amol Brink MD - Last Filed: 02/17/23 08:07> (3) ADHD: Status: Acute <Amol Brink MD - Last Filed: 02/17/23 08:07> (4) Asthma: Status: Acute <Amol Brink MD - Last Filed: 02/17/23 08:07> (5) Bipolar 1 disorder: Status: Acute <Amol Brink MD - Last Filed: 02/17/23 08:07> (6) GERD (gastroesophageal reflux disease): Status: Acute <Amol Brink MD - Last Filed: 02/17/23 08:07> (7) Psoriasis: Status: Acute <Amol Brink MD - Last Filed: 02/17/23 08:07> (8) Insomnia: Status: Acute <Amol Brink MD - Last Filed: 02/17/23 08:07> (9) Congenital intra-abdominal adhesions: Status: Acute <Amol Brink MD - Last Filed: 02/17/23 08:07> (10) S/P laparoscopic sleeve gastrectomy: Status: Acute <Amol rBink MD - Last Filed: 02/17/23 08:07> Time Spent With Patient Time: Total time managing care of this patient today ____ minutes. <Amol Brink MD - Last Filed: 02/17/23 08:07> Quality Stroke Does the patient have a stroke diagnosis?: No <Amol Brink MD - Last Filed: 02/17/23 08:07> VTE Prior VTE?: No <Amol Brink MD - Last Filed: 02/17/23 08:07> VTE Risk Level:: Surgical - moderate <Amol Brink MD - Last Filed: 02/17/23 08:07> VTE Device Contraindication: N/A - Device Ordered <Amol Brink MD - Last Filed: 02/17/23 08:07> VTE Drug Contraindication: Treatment Not Indicated <Amol Brink MD - Last Filed: 02/17/23 08:07>
[2023-02-16] MEDS: ceFAZolin Sodium/Dextrose,Iso 2 GM/50 ML PIGGYBACK IV ×2 (09:09→15:01)
[2023-02-16] MEDS: Acetaminophen 1,000 MG/100 ML PIGGYBACK 400 MG IV (10:00)
--- NOTE | 2023-02-16 10:02 | HO.ANESPROP2 ---
[facility] Active Problems Active Problems: All Active Problems (Updated 02/16/23 @ 08:57 by Amol Brink MD) Psoriasis (Acute) Morbid obesity (Acute) Presence of 52 mg levonorgestrel-releasing intrauterine device (IUD) (Acute) Cervical prolapse (Acute) Constipation (Acute) Morbid obesity with BMI of 40.0-44.9, adult (Acute) Adult general medical exam (Acute) Vitamin B12 deficiency (Acute) Yeast dermatitis (Acute) Pelvic floor weakness (Acute) Hx of abnormal cervical Pap smear (Acute) Screen for sexually transmitted diseases (Acute) Shortness of breath (Acute) Encounter for observation for other suspected diseases and conditions ruled out (Acute) Insomnia (Acute) PTSD (post-traumatic stress disorder) (Acute) ADHD (Acute) Transaminitis (Acute) Asthma (Acute) Bipolar 1 disorder (Acute) GERD (gastroesophageal reflux disease) (Acute) Super-super obese (Acute) Onychogryposis (Acute) History of drug use (Acute) Morbid obesity with BMI of 45.0-49.9, adult (Acute) Past Medical History Medical History Psoriasis Cervical cancer screening Smoking Insomnia ADHD Transaminitis Super-super obese Onychogryposis History of drug use History of peptic ulcer Morbid obesity with BMI of 45.0-49.9, adult Asthma Sciatica Low back pain Bipolar 1 disorder GERD (gastroesophageal reflux disease) Anxiety Depression PTSD (post-traumatic stress disorder) Family History Family History Father Chronic mental illness Hyperlipidemia HTN (hypertension) Mother Chronic mental illness Obesity Brother No problems noted. Brother No problems noted. Son ADHD Son ADHD Family/Other Substance use disorder Maternal Grandfather Colon cancer Family history of problems with anesthesia: No Surgical History Surgical History History of section H/O dilation and curettage H/O abdominal surgery History of Problems with Anesthesia: No Social History Social History Housing: Apartment Are you a primary aged or disabled care worker to a significant other at home: No Do you presently have visiting nurse or other home services: No Alcohol intake: current Alcohol intake frequency: a few times a month Patient Tobacco Use Status: Former Tobacco user Quit Date: 01/16/23 Tobacco use type: Cigarette e-Cigarette/Vaping Use: Never Used Second Hand Smoke Exposure: No Use of substances other than those prescribed or required for medical reasons: No Have you been hit, kicked, punched, or otherwise hurt by someone within the past year? If so, by whom?: No Are you DNR?: No Advance Directives: No Advance Directives Information Provided: No Advance Directives on File: No Recently lost weight without trying: No Eating poorly because of decreased appetite: No Nutrition Risks: No Nutritional Risk Patient : No (has IUD) FDLMP: 01/30/23 : No Poor oral hygiene: No service: No Current occupational status: unemployed Meds Allergies Allergy/AdvReac Type Severity Reaction Status Date / Time mushroom Allergy Mild THROAT Verified 02/10/23 12:12 CLOSING Active Medications: Current Medications Albuterol Sulfate (Albuterol Sulfate (0.083%) 2.5 Mg/3 Ml Vial.Neb) 2.5 mg INHALE ONCE PRN PRN Reason: Shortness of Breath/Wheezing Fentanyl (Fentanyl Citrate/Pf 100 Mcg/2 Ml Vial) 25 mcg IVPUSH Q5M PRN; Protocol PRN Reason: Pain, Moderate(Pain Scale 4-6) Hydromorphone HCl (Hydromorphone Hcl 0.5 Mg/0.5 Ml Syringe) 0.25 mg IVPUSH Q5M PRN; Protocol PRN Reason: Pain, Severe (Pain Scale 7-10) Lactated Ringer's (Lr) 1,000 mls @ 100 mls/hr IVCONT .Q10H JOSÉ Promethazine HCl 6.25 mg/ (Sodium Chloride) 50.25 mls @ 201 mls/hr IV ONCE PRN PRN Reason: Nausea and Vomiting Ondansetron HCl (Ondansetron Hcl 4 Mg/2 Ml Vial) 4 mg IVPUSH ONCE PRN PRN Reason: Nausea and Vomiting Home Medications Medication Instructions Recorded Confirmed Last Taken Type ustekinumab 90 mg/mL subcutaneous 90 mg subcut Q4W 01/27/20 02/16/23 02/15/23 History syringe (Ervin) clindamycin phosphate 1 % topical 1 appl topical DAILY 0502/14/23 02/14/23 History gel doxycycline hyclate 100 mg capsule 100 mg PO BID 08/25/22 02/16/23 02/14/23 History melatonin 3 mg capsule 3 mg PO BEDTIME PRN Insomnia 08/25/22 02/14/23 02/14/23 History topiramate 25 mg tablet 50 mg PO DAILY 08/25/22 02/14/23 02/14/23 History levonorgestrel 21 mcg/24 hours (8 intrauterine 02/03/23 02/10/23 Unknown History yrs) 52 mg intrauterine device (Mirena) bupropion HCl 300 mg 24 hr tablet, 300 mg PO DAILY 02/16/23 02/16/23 02/14/23 History extended release dextroamphetamine-amphetamine ER 1 cap PO DAILY 02/16/23 02/16/23 02/14/23 History 10 mg 24hr capsule,extend release dextroamphetamine-amphetamine ER 1 cap PO DAILY 02/16/23 02/16/23 02/14/23 History 20 mg 24hr capsule,extend release Exam Height,Weight and Vital Signs: Height 5 ft 6 in Weight 113.852 kg Last Vital Signs Temp 97.6 F 02/16/23 08:09 Pulse 80 02/16/23 08:09 Resp 18 02/16/23 08:09 BP 114/70 02/16/23 08:09 Pulse Ox 97 02/16/23 08:09 O2 Del Method Room Air 02/16/23 08:09 Pertinent Lab Results Pertinent Lab Results: Laboratory Tests 02/16/23 08:11 Beta HCG, Quant < 2 Blood Type O Positive Antibody Screen NEGATIVE Assessment and Plan Final Anesthetic Review Family History of Problems with Anesthesia: No History of Problems with Anesthesia: No
--- NOTE | 2023-02-16 12:22 | PM.DS ---
DS: Providers Provider Date of Service: 02/17/23 Date of admission: 02/16/23 07:57 Primary care physician: Elizabeth Santana MD DS: Diagnosis Discharge Diagnosis (1) Morbid obesity: Status: Acute (2) PTSD (post-traumatic stress disorder): Status: Acute (3) ADHD: Status: Acute (4) Asthma: Status: Acute (5) Bipolar 1 disorder: Status: Acute (6) GERD (gastroesophageal reflux disease): Status: Acute (7) Psoriasis: Status: Acute (8) Insomnia: Status: Acute DS: Summary Hospital Course Hospital Course: ADMITTING DIAGNOSIS: morbid obesity, ADHD, Bipolar, insomnia, asthma, gerd ? DISCHARGE DIAGNOSIS: same, s/p laparoscopic sleeve gastrectomy ? PAST SURGICAL HISTORY: cesarian section, abdominal wall debridement w vac after CS ? PROCEDURE: upper endoscopy, laparoscopic sleeve gastrectomy ? DISCHARGE SUMMARY: ? History of Present Illness: ? The patient is a?32 year-old woman with a BMI of?44.1 kg/m2 and associated co-morbidities as described above. The patient had extensive work-up,lost?23.5 lbs preoperatively and was electively scheduled for laparoscopic, possible open sleeve gastrectomy and gastropexy. Risks and complications of the surgery were discussed with the patient in advance, particularly the possibility of , pulmonary embolism, anastomotic leak, bleeding, bowel injury, GERD, cardiac, renal or pulmonary complications. The patient understood all the risks and was in agreement with the surgical plan. ? Hospital Course: ? The patient underwent an uneventful laparoscopic sleeve gastrectomy with gastropexy on the day of admission. Postoperatively, the patient was transferred to the surgical floor. The patient received IV Acetaminophen and IV dilaudid for pain control. Patient was started on bariatric phase 1 diet POD #0. On postoperative day one, the patient was feeling well without nausea, vomiting, fevers, or tachycardia. The patient had some mild incisional pain and the abdomen was soft. ? On the morning of postoperative day one, the patient was continued on 1 ounce of water or ice every half hour. During the day, the patient did fairly well, having some incisional pain, but able to ambulate adequately and to tolerate liquids well. ? Since the patient is doing well, we decided that the patient was ready to be discharged. The patient was given instructions to follow-up with me next week and to call my office for any fever over 101, persistent abdominal pain, nausea, vomiting, GERD, symptoms of DVT such as calf tenderness, or leg swelling, or pulmonary embolism such as chest pain or shortness of breath. The patient was also instructed to drink 40-60 ounces of liquids per day using the 1-ounce cups. The patient had been given prescriptions for Tylenol for pain, Zofran prn for nausea, and pantoprazole and carafate previously. The patient was encouraged to ambulate and use the incentive spirometer. The patient was allowed to shower, but no baths, and encouraged to stay active at home. All of these instructions were given to the patient personally. All questions were answered and the patient understood all instructions, the instructions were also given to the patient in print. Time Attestation Discharge coordination time: Less than 30 minutes Quality: Safe Use of Opioids Does Pt have an Active Cancer Diagnosis on the Problem List?: No Quality: Stroke Does the patient have a stroke diagnosis?: No Physical Exam Vital Signs: Vital Signs: Last Vital Signs Temp 97.6 F 02/16/23 08:09 Pulse 80 02/16/23 08:09 Resp 18 02/16/23 08:09 BP 114/70 02/16/23 08:09 Pulse Ox 97 02/16/23 08:09 O2 Del Method Room Air 02/16/23 08:09 BMI result Body Mass Index 40.5 DS: Data Data Completed and Pending Pending studies at discharge: Pending at discharge 02/16/23 10:36 Surgical [PTH] Routine Labs on day of discharge: Laboratory Results - last 24 hr 02/16/23 08:11 Beta HCG, Quant < 2 Blood Type O Positive Antibody Screen NEGATIVE Discharge Plan Discharge Anticipated Discharge Date/Time: 02/17/23 10:00 Patient Disposition: Home, Self-Care Discharge Diagnosis: s/p laparoscopic sleeve gastrectomy Referrals: Elizabeth Warren MD [Primary Care Provider] - 1 Week Discharge Medications: Continued fluticasone propionate 50 mcg/actuation spray,suspension 2 spray intranasal DAILY Qty: 48 6RF bupropion HCl 300 mg tablet extended release 24 hr 300 mg PO DAILY dextroamphetamine-amphetamine 20 mg capsule,extended release 24hr 1 cap PO DAILY dextroamphetamine-amphetamine 10 mg capsule,extended release 24hr 1 cap PO DAILY albuterol sulfate [ProAir HFA] 90 mcg/actuation HFA aerosol inhaler 2 puff inhalation Q4-6H PRN (Reason: bronchospasm) 30 Days Qty: 6.7 2RF Stelara 90 mg/mL syringe 90 mg subcut Q4W Patient Comments: every 3mths per doxycycline hyclate 100 mg capsule 100 mg PO BID topiramate 25 mg tablet 50 mg PO DAILY Mirena 21 mcg/24 hours (8 yrs) 52 mg intrauterine device intrauterine melatonin 3 mg capsule 3 mg PO BEDTIME PRN (Reason: Insomnia) clindamycin phosphate 1 % gel 1 appl topical DAILY docusate sodium [Colace] 100 mg capsule 100 mg PO DAILY Qty: 30 2RF pantoprazole 40 mg tablet,delayed release (DR/EC) 40 mg PO DAILY Qty: 30 2RF Discontinued mecobalamin (vitamin B12) 1,000 mcg tablet,disintegrating 1,000 mcg sublingual DAILY Qty: 30 2RF Rx Instructions: place tablet under tongue and allow to dissolve for at least30 secs before swallowing Discharge Orders: Discharge Order (Routine); Ordered 02/17/23 Ordered By: Amol Brink Activity on Discharge: No heavy lifting Stand Alone Forms: Patient Portal Discharge page Care Plan Goals: weight loss Health Concerns: morbid obesity Plan of Treatment: No tub baths, sex or returning to work until discussed at first post op appointment. No exercise, alcohol, tobacco or illegal drug use. Continue to use incentive spirometer hourly while awake. Walk in home for 5- 10 minutes every 2 hours during the first week. Follow all instructions in the bariatric handbook and call with any questions.Discharge Instructions 1. Please call your doctor or come back to the emergency room should any new symptoms arise. 2. You will receive a courtesy call from [facility] 24-48 hours after discharge. 3. Activity: abstain from alcohol, practice limited stair climbing, no bending, no driving, no exercise, no illicit substances, no lifting, no sex, no tub bath, no work. 4. Diet: continue as discussed with Dr. Brink. 5. Dressing Change/Wound Care: Your incision is covered by clear bandages and guaze underneath. If the area is tender, you may apply an ice pack for short intervals (no more than 20 minutes on, followed by at least 20 minutes off). Do not apply heat. Do not use creams, lotions, or topical antibiotics unless instructed to do so by your surgeon. These can cause infection or allergic reaction. 6. Call your doctor if: - Your temperature exceeds 101.5 F - You experience excessive pain or swelling - You have an unexpected reaction to medication - You have excessive bleeding - You experience continued vomiting/nausea - Your incision begins to separate - Your incision shows signs of infection such as increased redness, swelling, excessive pain, heat, or drainage (light blood or clear fluid is normal) 7. General instructions: No lifting greater than 5 lbs for 1 week and not more than 20lbs the next 3?weeks. No driving until seen at the office in 5-7 days after surgery. If you do not move your bowels in the next 2 days, please tell?Dr. Brink. Please walk around your home every hour or two to prevent blood clots from forming in your legs. You do not need to wake from sleeping to walk. Please sleep in a bed or couch to prevent kinking at the hips and knees. Please take your incentive spirometer (your lung jet ski mechanic) home with you and use it for the next few days to prevent pneumonia. You may shower, no hot tubs, baths or swimming pools.?Please follow the post op diet instructions you are?given by Dr Brink? and text me daily at 5-6pm for an update.?If you have any issues or concerns or questions please communicate this to him via text.? The Celebrate shakes have all of the bariatric vitamins you need if you consume these shakes. If you are drinking other protein shakes, you will need to purchase the Celebrate multivitamins and calcium that are available in the hospital gift shop on the first floor of the [facility].??Do not take anything without first discussing with Dr Brink. Please make sure you are consuming at least 40 ounces of fluids per day starting the?day AFTER your discharge from the hospital. Always drink 1-2 ml per minute using the 5ml?syringe. If you drink faster you may experience?bloating,?gas pain, burping, nausea or heartburn. In that case please slow down your pace and use the syringe to?understand better the?proper?pace and volume of drinking. Do not hesitate to contact the office with any questions at . The patient's medical history has been reviewed and they are considered low risk for post op DVT and therefore DVT prophylaxis is not considered necessary. Travel after surgery was reviewed. The patient has not disclosed any travel plans during the first 30 days after surgery and they have been advised that within the first 30 days after surgery any bus, plane, train or car travel over 2 hours in duration is contraindicated due to the possibility of developing blood clots from immobility. Any travel, needs to include periods of ambulation of 10 minutes in duration every 2 hours.? The patient was instructed to discuss any plans for travel during this period with their bariatric surgeon. Assessment: stable s/p laparoscopic sleeve gastrectomy Discharge Date/Time: 02/17/23 09:49
[2023-02-16 12:43] LABS: Hematocrit 42.9 % (37.0-47.0); Hemoglobin 14.5 g/dl (12.0-16.0)
[2023-02-16 12:55] LABS: Anion Gap 8 (12-20); Blood Urea Nitrogen 8 mg/dL (9-16); Calcium 9.2 mg/dL (8.4-10.2); Carbon Dioxide 26 mmol/L (22-29); Chloride 109 mmol/L (96-108); Creatinine Clr Calc Pharmacy 103.5; Estimated Glomerular Filt Rate > 60; Glucose Random 135 mg/dL (60-115); Sodium 139 mmol/L (135-145)
[2023-02-16] MEDS: Famotidine/PF 20 MG/2 ML VIAL IVPUSH ×2 (13:36→20:59)
[2023-02-16] MEDS: Lactated Ringers 1,000 ML 100 ML IVCONT ×2 (15:01→15:07)
[2023-02-16] MEDS: Acetaminophen 1,000 MG/100 ML PIGGYBACK 16.7 MG IV ×2 (15:06→21:00)
[2023-02-16] MEDS: 0.9 % Sodium Chloride Flush 3 ML SYRINGE IVFLUSH (20:59)
[2023-02-17] MEDS: Lactated Ringers 1,000 ML 100 ML IVCONT (00:02)
[2023-02-17] MEDS: Acetaminophen 1,000 MG/100 ML PIGGYBACK 16.7 MG IV (02:56)
[2023-02-17 03:40] VITALS: BP 119/71; PULSE 75; RESP 18; TEMP 36.5; O2SAT 97
[2023-02-17 05:41] LABS: MANUAL DIFF FLAG NO
[2023-02-17 05:49] LABS: Basophils Percent Auto 0.1 % (0-2); Hematocrit 38.9 % (37.0-47.0); Imm Gran Abs Auto 0.05 X10*3/uL (0.00-0.03); Imm Gran Pct Auto 0.5 % (0.0-0.4); Lymphocytes Absolute Auto 1.2 X10*3/uL (1.2-4.9); Lymphocytes Percent Auto 10.5 % (20-40); Mean Corpuscular HGB Conc 33.4 g/dl (31.0-35.0); Mean Corpuscular Hemoglobin 31.9 pg (27.0-33.0); Mean Corpuscular Volume 95.6 fL (80.0-98.0); Mean Platelet Volume 11.4 fL (9.4-12.3); Monocytes Absolute Auto 0.6 X10*3/uL (0.1-1.2); Monocytes Percent Auto 5.6 % (2-11); Neutrophils Absolute Auto 9.2 x10*3/uL (2.0-8.3); Neutrophils Percent Auto 83.3 % (45-73); Platelet Count 238 X10*3/uL (160-400); Red Blood Count 4.07 X10*6/uL (4.20-5.50)
[2023-02-17 06:06] LABS: Anion Gap 10 (12-20); Blood Urea Nitrogen 8 mg/dL (9-16); Calcium 8.8 mg/dL (8.4-10.2); Carbon Dioxide 23 mmol/L (22-29); Chloride 110 mmol/L (96-108); Estimated Glomerular Filt Rate > 60; Glucose Random 105 mg/dL (60-115); Potassium 3.8 mmol/L (3.3-5.1); Sodium 139 mmol/L (135-145)
[2023-02-17 07:46] VITALS: BP 127/80; PULSE 76; RESP 20; TEMP 36.6; O2SAT 98
[2023-02-17] MEDS: Famotidine/PF 20 MG/2 ML VIAL IVPUSH (08:23)
[2023-02-17] MEDS: Topiramate 25 MG TABLET 50 MG PO (08:23)
[2023-02-17] MEDS: Dextroamphetamine/Amphetamine XR 10 MG CAP.ER.24H PO (08:23)
[2023-02-17] MEDS: Dextroamphetamine/Amphetamine XR 10 MG CAP.ER.24H 20 MG PO (08:23)
[2023-02-17] MEDS: 0.9 % Sodium Chloride Flush 3 ML SYRINGE IVFLUSH (08:24)
--- NOTE | 2023-02-17 11:24 | MHC.CM.PN ---
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
--- NOTE | 2023-02-17 11:46 | HO.POSTANES ---
Post Anesthesia Evaluation Post Anesthesia Evaluation Date of Service: 02/17/23 Vital Signs: Vital Signs Temp Pulse Resp BP Pulse Ox O2 Del Method 02/17/23 07:46 97.8 F 76 20 127/80 98 Room Air 02/17/23 03:40 97.7 F 75 18 119/71 97 Room Air Anesthesia: General Endotracheal-GETA Mental Status: Awake Pain Control: Satisfactory Nausea/Vomiting: None Hydration: Adequate Anesthesia-Related Issues: No Anes. Related Issues
== END 2023-02-17 09:49 | disposition home or self-care (01) | DRG 620 ==
LOC: HO.SSSA 12:26 → HO.S3 13:07
PROVIDERS: Anesthesiology; Physician Assistant Surgical; Admitting Provider Surgery; PCP Internal Medicine; Visit Provider Surgery
PROC: 0DB64Z3 Excision of Stomach, Percutaneous Endoscopic Approach, Vertical (ICD-10-PCS; CPT 43845; principal; 2023-02-16 09:00)
DX: E66.01 Morbid (severe) obesity due to excess calories (principal); Q43.3 Congenital malformations of intestinal fixation; F90.9 Attention-deficit hyperactivity disorder, unspecified type; F41.9 Anxiety disorder, unspecified; F31.9 Bipolar disorder, unspecified; M54.30 Sciatica, unspecified side; J45.909 Unspecified asthma, uncomplicated; F43.10 Post-traumatic stress disorder, unspecified; K21.9 Gastro-esophageal reflux disease without esophagitis; G47.00 Insomnia, unspecified; L40.9 Psoriasis, unspecified; Z68.41 Body mass index [BMI] 40.0-44.9, adult; Z79.51 Long term (current) use of inhaled steroids; Z79.899 Other long term (current) drug therapy
CPT/HCPCS: 36415; 80048; 84702; 85014; 85018; 85025; 86850; 86900; 86901; 88304; 88305; 88307; 88342; A4649; C9088; C9145; J0131; J0690; J1100; J1170; J2250; J2405; J2550; J2704; J2795; J3010; J7120

== ENCOUNTER → 2023-02-16 07:57 | Outpatient (BNV) | payer MEDICARE, MEDICAID, SELFPAY | PROVIDERS: Admitting Provider Surgery; PCP Internal Medicine; Visit Provider Surgery | DX: E66.9 Obesity, unspecified (principal); Z68.41 Body mass index [BMI] 40.0-44.9, adult | CPT/HCPCS: 43659; 43775; 99024 ==

== ENCOUNTER → 2023-02-21 10:48 | Outpatient (BNVA) | payer MEDICARE, MEDICAID, SELFPAY | PROVIDERS: PCP Internal Medicine; Visit Provider Physician Assistant Surgical | DX: E66.9 Obesity, unspecified (principal); Z98.84 Bariatric surgery status; Z68.38 Body mass index [BMI] 38.0-38.9, adult | CPT/HCPCS: 99212 ==

== ENCOUNTER 2023-02-21 10:49 | Outpatient (AMB) | payer MEDICARE, MEDICAID, SELFPAY ==
--- NOTE | 2023-02-21 11:10 | MHC.OFFVISWM ---
Intake VS Expanded 02/21/23 11:17 BP 124/87 Blood Pressure Location Rt brachial Blood Pressure Position Sitting Pulse 95 Pulse Source Pulse Oximeter Temp 98.3 F Temperature Source Temporal Artery Scan Pulse Oximetry 99 Oxygen Delivery Method Room Air Height 5 ft 6 in Weight 240 lb 12.8 oz BMI 38.9 Body Fat % 42.0 Body Fat Mass 101.2 Fat Free Mass 139.6 Visceral Fat Rating 10.0 Body Water % 41.6 Body Water Mass 100.0 Muscle Mass/Score 132.4 Basal Metabolic Rate/Score 1,961 Intake Visit Reasons: (ov) Po LSG 02/16/23 Allergies mushroom Allergy (Mild, Verified 02/21/23 11:13) THROAT CLOSING Medication List - Last Reconciled 02/21/23 by ATTILA Perry albuterol sulfate 90 mcg/actuation (ProAir HFA) 2 puffs inhalation Q4-6H PRN 30 days bupropion HCl 300 mg PO DAILY clindamycin phosphate 1% 1 appl topical DAILY dextroamphetamine-amphetamine 10 mg ER 1 cap PO DAILY dextroamphetamine-amphetamine 20 mg ER 1 cap PO DAILY docusate sodium (Colace) 100 mg PO DAILY doxycycline hyclate 100 mg PO BID fluticasone propionate 50 mcg/actuation 2 sprays intranasal DAILY levonorgestrel (Mirena) intrauterine melatonin 3 mg PO BEDTIME PRN pantoprazole 40 mg PO DAILY topiramate 50 mg PO DAILY ustekinumab (Stelara) 90 mg subcut Q4W HPI HPI Comments History of Present Illness Details Pt is 5 days s/p LSG 02/16/[address] Nickerson. No N/V, no pain. Current meal plan: 3 shakes per day, Celebrate 1 scoop each in 8oz unsweetened almond milk. She is planning to check in again with Dr. Nickerson on Monday. Taking PPI and carafate. [facility] Medical History (Updated 02/21/23 @ 11:31 by ATTILA Perry) Cervical prolapse Constipation Adult general medical exam Yeast dermatitis Hx of abnormal cervical Pap smear Screen for sexually transmitted diseases Shortness of breath Encounter for observation for other suspected diseases and conditions ruled out Psoriasis Cervical cancer screening Smoking Insomnia ADHD Transaminitis Super-super obese Onychogryposis History of drug use History of peptic ulcer Morbid obesity with BMI of 45.0-49.9, adult Asthma Sciatica Low back pain Bipolar 1 disorder GERD (gastroesophageal reflux disease) Anxiety Depression PTSD (post-traumatic stress disorder) Surgical History (Updated 02/21/23 @ 11:14 by Beth Mata CMA) S/P laparoscopic sleeve gastrectomy History of section H/O dilation and curettage H/O abdominal surgery Family History Father Chronic mental illness Hyperlipidemia HTN (hypertension) Mother Chronic mental illness Obesity Brother No problems noted. Brother No problems noted. Son ADHD Son ADHD Family/Other Substance use disorder Maternal Grandfather Colon cancer Household Members: Family Housing: House Are you a primary lawn care technician to a significant other at home: No Do you presently have visiting nurse or other home services: No Alcohol intake: current Alcohol intake frequency: a few times a month Patient Tobacco Use Status: Former Tobacco user Quit Date: 01/16/23 Tobacco use type: Cigarette e-Cigarette/Vaping Use: Never Used Second Hand Smoke Exposure: No service: No Current occupational status: unemployed Female Reproductive History Menstrual Age of Menarche: 12 Physical Exam Vital Signs: Last Vital Signs Temp 98.3 F 02/21/23 11:17 Pulse 95 02/21/23 11:17 BP 124/87 02/21/23 11:17 Pulse Ox 99 02/21/23 11:17 Oxygen Delivery Method Room Air 02/21/23 11:17 BMI result Body Mass Index 38.9 Const General: cooperative, comfortable and no acute distress Orientation/consciousness: patient oriented x3 GI Other: soft, nontender, nondistended, incisions with steri-strips C/D/I, no hernia, no masses Neuro General: patient oriented x3 Assessment & Plan Assessment & Plan (1) S/P laparoscopic sleeve gastrectomy: Code(s): Z98.84 - Bariatric surgery status (2) Obesity: Code(s): E66.9 - Obesity, unspecified Plan May shower but no bath or submersion of abdomen in water. May start exercise in 2 days.? No abdominal exercises x 6 weeks. Abdominal binder for the next 2 weeks with activity or exercise. Continue meal plan per Dr Nickerson until next f/u in 2 weeks. Reviewed pantoprazole and carafate dosing. Reminded of the pace of drinking 2 mL/min or 1oz per 15 min. Will be emailed link for post op video for review. 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 RTC 2 weeks. Patient is obese and is not considered stable at this time. I spent a total of 30 minutes reviewing/updating records, examining the patient and counseling the patient on weight management as detailed above. Coding Level of Care Code Est Pt Level 4 (19661) Diagnoses S/P laparoscopic sleeve gastrectomy Z98.84 Obesity E66.9
[2023-02-21 11:17] VITALS: BP 124/87; PULSE 95; TEMP 36.8; O2SAT 99; BMI 38.9
== END 2023-02-21 12:07 | disposition home or self-care (01) ==
PROVIDERS: PCP Internal Medicine; Visit Provider Physician Assistant Surgical
DX: E66.9 Obesity, unspecified (principal); Z68.38 Body mass index [BMI] 38.0-38.9, adult; Z90.3 Acquired absence of stomach [part of]; Z98.84 Bariatric surgery status
CPT/HCPCS: 99024

== ENCOUNTER 2023-03-08 14:08 | Outpatient (AMB) | payer MEDICARE, MEDICAID, SELFPAY ==
--- NOTE | 2023-03-08 14:10 | MHC.OFFVISWM ---
Intake VS Expanded 03/08/23 14:17 BP 136/94 H Blood Pressure Location Rt brachial Blood Pressure Position Sitting Pulse 100 Pulse Source Pulse Oximeter Temp 98.5 F Temperature Source Temporal Artery Scan Pulse Oximetry 96 Oxygen Delivery Method Room Air Height 5 ft 6 in Weight 227 lb 3.2 oz BMI 36.7 Body Fat % 38.6 Body Fat Mass 87.8 Fat Free Mass 139.4 Visceral Fat Rating 9.0 Body Water % 44.0 Body Water Mass 99.8 Muscle Mass/Score 132.2 Basal Metabolic Rate/Score 1,935 Intake Visit Reasons: (ov) Po LSG 02/16/23 Allergies mushroom Allergy (Mild, Verified 03/08/23 14:13) THROAT CLOSING HPI HPI Comments History of Present Illness Details This?a?32?yo female who is s/p LSG without hiatal hernia repair on?02/16/23. Presents for 3 week post op visit. Weight today is 227.2 pounds, with a BMI of 36.7. There has been a 46.6 pound weight loss,(initial weight 273.8 pounds) since starting the program on 08/31/22 reflecting a 17% total body weight loss and a weight loss of 23.2 pounds since surgery (operative weight 250.4 pounds) reflecting a 9.2% TBWL since surgery. No complaints of nausea, emesis, abdominal pain or reflux. Her father recently unexpectedly and she has been dealing with all the arrangements. Present meal plan includes: Celebrate 4 in 1 shakes 2 scoops in 8 oz almond milk, 8-10 another shake 11-1 another shake 1 scoop, 2-4 ZP bar 5-8 drinking 50 oz water ? Exercise routine includes: lots of errands , stationary bike at home. [facility] Medical History Cervical prolapse Constipation Adult general medical exam Yeast dermatitis Hx of abnormal cervical Pap smear Screen for sexually transmitted diseases Shortness of breath Encounter for observation for other suspected diseases and conditions ruled out Psoriasis Cervical cancer screening Smoking Insomnia ADHD Transaminitis Super-super obese Onychogryposis History of drug use History of peptic ulcer Morbid obesity with BMI of 45.0-49.9, adult Asthma Sciatica Low back pain Bipolar 1 disorder GERD (gastroesophageal reflux disease) Anxiety Depression PTSD (post-traumatic stress disorder) Surgical History S/P laparoscopic sleeve gastrectomy History of section H/O dilation and curettage H/O abdominal surgery Family History Father Chronic mental illness Hyperlipidemia HTN (hypertension) Mother Chronic mental illness Obesity Brother No problems noted. Brother No problems noted. Son ADHD Son ADHD Family/Other Substance use disorder Maternal Grandfather Colon cancer Social History Household Members: Family Housing: House Are you a primary memory care program director to a significant other at home: No Do you presently have visiting nurse or other home services: No Alcohol intake: current Alcohol intake frequency: a few times a month Patient Tobacco Use Status: Former Tobacco user Quit Date: 01/16/23 Tobacco use type: Cigarette e-Cigarette/Vaping Use: Never Used Second Hand Smoke Exposure: No service: No Current occupational status: unemployed Female Reproductive History Menstrual Age of Menarche: 12 Review of Systems Const All systems reviewed & are unremarkable except as noted in HPI and below Physical Exam GI Inspection: Yes incision (intact) Assessment & Plan Assessment & Plan (1) Obesity: Code(s): E66.9 - Obesity, unspecified Plan: The patient has been dealing with the unexpected recent of her father. She is doing the best she can with the shakes. She has not done the bar. She will communicate this with Dr. Brink tomorrow. She was encouraged to return to her stationary bike when she is able after her father's . Return to clinic 3 weeks. Coding Level of Care Code Global (79589) Diagnoses Obesity E66.9
[2023-03-08 14:17] VITALS: BP 136/94; PULSE 100; TEMP 36.9; O2SAT 96; BMI 36.7
== END 2023-03-08 14:38 | disposition home or self-care (01) ==
PROVIDERS: PCP Internal Medicine; Visit Provider Physician Assistant Surgical
DX: E66.9 Obesity, unspecified (principal)
CPT/HCPCS: 99024

== ENCOUNTER → 2023-03-08 14:08 | Outpatient (BNVA) | payer MEDICARE, MEDICAID, SELFPAY | PROVIDERS: PCP Internal Medicine; Visit Provider Physician Assistant Surgical | DX: E66.9 Obesity, unspecified (principal); Z68.36 Body mass index [BMI] 36.0-36.9, adult | CPT/HCPCS: 99212 ==

== ENCOUNTER 2023-03-29 11:32 | Outpatient (AMB) | payer MEDICARE, MEDICAID, SELFPAY ==
--- NOTE | 2023-03-29 11:38 | A.OFFVIS_ITS ---
Intake VS Expanded 03/29/23 11:46 BP 114/70 Blood Pressure Location Rt brachial Pulse 96 Pulse Source Pulse Oximeter Temp 97.6 F Temperature Source Tympanic Pulse Oximetry 97 Oxygen Delivery Method Room Air Height 5 ft 6 in Weight 215 lb BMI 34.7 Body Fat % 36.0 Body Fat Mass 77.4 Fat Free Mass 137.6 Visceral Fat Rating 7.0 Body Water % 45.8 Body Water Mass 98.6 Muscle Mass/Score 130.8 Basal Metabolic Rate/Score 1,894 Intake Visit Reasons: (ov) Po LSG 02/16/23 Tallier Required: No Allergies mushroom Allergy (Mild, Verified 03/29/23 11:50) THROAT CLOSING Medication List - Last Reconciled 03/29/23 by ATTILA Cisse albuterol sulfate 90 mcg/actuation (ProAir HFA) 2 puffs inhalation Q4-6H PRN 30 days bupropion HCl 300 mg PO DAILY clindamycin phosphate 1% 1 appl topical DAILY dextroamphetamine-amphetamine 10 mg ER 1 cap PO DAILY dextroamphetamine-amphetamine 20 mg ER 1 cap PO DAILY docusate sodium (Colace) 100 mg PO DAILY doxycycline hyclate 100 mg PO BID fluticasone propionate 50 mcg/actuation 2 sprays intranasal DAILY levonorgestrel (Mirena) intrauterine melatonin 3 mg PO BEDTIME PRN pantoprazole 40 mg PO DAILY topiramate 50 mg PO DAILY ustekinumab (Stelara) 90 mg subcut Q4W HPI HPI Comments History of Present Illness Details This?a?32?yo femjosep roman who is s/p LSG without hiatal her wendi repair on?02/01 09/23. Presents for 5 week post op vi sit. Weight today is 215 pounds, wit h a BMI of 34.7. There has been a 5 8.8 pound weight l oss,(initial weigh t 273.8 pounds) si nce starting the p rogram on 08/31/22 reflecting a 21.4% total body weight loss and a weight loss of 35.4 poun ds since surgery ( operative weight 2 50.4 pounds) refle cting a 14.1% TBWL since surgery. N o complaints of na usea, emesis, abdo lakes[place] pain or refl ux. Her father r ecently passed jb y unexpectedly and she has been deal ing with his house , grieving, holida ys have been diffi cult. She was sup posed to be doing a protein bar as sloan nazario but has been r unning around and has often skip it. Present meal pl an includes: Yovana brate 4 in 1 shake s 2 scoops in 8 o z almond milk, 8-1 0 another shake 11 -1 drinking 50 oz water ? Exercise routine includes: lots of errands , stationary bike at home. [facility] Medical History Cervical prolapse Constipation Adult general medical exam Yeast dermatitis Hx of abnormal cervical Pap smear Screen for sexually transmitted diseases Shortness of breath Encounter for observation for other suspected diseases and conditions ruled out Psoriasis Cervical cancer screening Smoking Insomnia ADHD Transaminitis Super-super obese Onychogryposis History of drug use History of peptic ulcer Morbid obesity with BMI of 45.0-49.9, adult Asthma Sciatica Low back pain Bipolar 1 disorder GERD (gastroesophageal reflux disease) Anxiety Depression PTSD (post-traumatic stress disorder) Surgical History S/P laparoscopic sleeve gastrectomy History of section H/O dilation and curettage H/O abdominal surgery Family History Father Chronic mental illness Hyperlipidemia HTN (hypertension) Mother Chronic mental illness Obesity Brother No problems noted. Brother No problems noted. Son ADHD Son ADHD Family/Other Substance use disorder Maternal Grandfather Colon cancer Social History Household Members: Family Housing: House Are you a primary career technical supervisor to a significant other at home: No Do you presently have visiting nurse or other home services: No Alcohol intake: current Alcohol intake frequency: a few times a month Patient Tobacco Use Status: Former Tobacco user Quit Date: 01/16/23 Tobacco use type: Cigarette e-Cigarette/Vaping Use: Never Used Second Hand Smoke Exposure: No service: No Current occupational status: unemployed Female Reproductive History Menstrual Age of Menarche: 12 Physical Exam Vital Signs: Last Vital Signs Temp 97.6 F 03/29/23 11:46 Pulse 96 03/29/23 11:46 BP 114/70 03/29/23 11:46 Pulse Ox 97 03/29/23 11:46 Oxygen Delivery Method Room Air 03/29/23 11:46 BMI result Body Mass Index 34.7 Const General: healthy appearing and no acute distress Resp Effort & Inspection: normal respiratory effort Auscultation: clear to auscultation bilaterally Cardio Rate: regular rate Rhythm: regular rhythm GI Auscultation: normal bowel sounds Extrem General: Yes normal to inspection Assessment & Plan Assessment & Plan (1) Obesity: Code(s): E66.9 - Obesity, unspecified Plan: Patient has been encouraged to add the zone perfect protein bar. We did discussed potentially adding a protein water as an alternative. Ideally she would do better with the protein bar. Recommended breaking the stationary bike up from the basement and resume exercise. Return to the office in 3 weeks. Coding Level of Care Code Global (93301) Diagnoses Obesity E66.9
[2023-03-29 11:46] VITALS: BP 114/70; PULSE 96; TEMP 36.4; O2SAT 97; BMI 34.7
== END 2023-03-29 12:24 | disposition home or self-care (01) ==
PROVIDERS: PCP Internal Medicine; Visit Provider Physician Assistant Surgical
DX: E66.9 Obesity, unspecified (principal)
CPT/HCPCS: 99024

== ENCOUNTER → 2023-03-29 11:32 | Outpatient (BNVA) | payer MEDICARE, MEDICAID, SELFPAY | PROVIDERS: PCP Internal Medicine; Visit Provider Physician Assistant Surgical | DX: E66.9 Obesity, unspecified (principal); Z68.34 Body mass index [BMI] 34.0-34.9, adult; Z98.84 Bariatric surgery status | CPT/HCPCS: 99212 ==

== ENCOUNTER 2023-04-26 13:49 | Outpatient (AMB) | payer MEDICARE, MEDICAID, SELFPAY ==
--- NOTE | 2023-04-26 13:37 | MHC.OFFVISWM ---
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 Allergies mushroom Allergy (Mild, Verified 03/29/23 11:50) THROAT CLOSING Medication List - Last Reconciled 04/26/23 by ATTILA Cisse albuterol sulfate 90 mcg/actuation (ProAir HFA) 2 puffs inhalation Q4-6H PRN 30 days bupropion HCl 300 mg PO DAILY clindamycin phosphate 1% 1 appl topical DAILY dextroamphetamine-amphetamine 10 mg ER 1 cap PO DAILY dextroamphetamine-amphetamine 20 mg ER 1 cap PO DAILY docusate sodium (Colace) 100 mg PO DAILY doxycycline hyclate 100 mg PO BID fluticasone propionate 50 mcg/actuation 2 sprays intranasal DAILY levonorgestrel (Mirena) intrauterine melatonin 3 mg PO BEDTIME PRN pantoprazole 40 mg PO DAILY topiramate 50 mg PO DAILY ustekinumab (Stelara) 90 mg subcut Q4W HPI HPI Comments History of Present Illness Details This?a?32?yo female who is s/p LSG without hiatal hernia repair on?02/16/2023. Presents for 2 month post op visit. Weight today is 203.2 pounds, with a BMI of 32.8. There has been a 70.6 pound weight loss,(initial weight 273.8 pounds) since starting the program on 08/31/2022 reflecting a 25.7% total body weight loss and a weight loss of 47.2 pounds since surgery (operative weight 250.4 pounds) reflecting a 18.8% TBWL since surgery. No complaints of nausea, emesis, abdominal pain or reflux. Reports infrequent but normal bowel movements every 1-2 days and uses stool softeners regularly. Does not want to start food Present meal plan includes: 2 celebrate 4 in 1 2 scoops w 8 oz almond milk 1 ZP bar 2 x per week Drinking 48 -64 oz water ? Exercise routine includes: walking outside daily [facility] Medical History Cervical prolapse Constipation Adult general medical exam Yeast dermatitis Hx of abnormal cervical Pap smear Screen for sexually transmitted diseases Shortness of breath Encounter for observation for other suspected diseases and conditions ruled out Psoriasis Cervical cancer screening Smoking Insomnia ADHD Transaminitis Super-super obese Onychogryposis History of drug use History of peptic ulcer Morbid obesity with BMI of 45.0-49.9, adult Asthma Sciatica Low back pain Bipolar 1 disorder GERD (gastroesophageal reflux disease) Anxiety Depression PTSD (post-traumatic stress disorder) Surgical History S/P laparoscopic sleeve gastrectomy History of section H/O dilation and curettage H/O abdominal surgery Family History Father Chronic mental illness Hyperlipidemia HTN (hypertension) Mother Chronic mental illness Obesity Brother No problems noted. Brother No problems noted. Son ADHD Son ADHD Family/Other Substance use disorder Maternal Grandfather Colon cancer Social History Household Members: Family Housing: House Are you a primary medicare nurse to a significant other at home: No Do you presently have visiting nurse or other home services: No Alcohol intake: current Alcohol intake frequency: a few times a month Patient Tobacco Use Status: Former Tobacco user Quit Date: 01/16/23 Tobacco use type: Cigarette e-Cigarette/Vaping Use: Never Used Second Hand Smoke Exposure: No service: No Current occupational status: unemployed Female Reproductive History Menstrual Age of Menarche: 12 Assessment & Plan Assessment & Plan (1) Obesity: Code(s): E66.9 - Obesity, unspecified Plan: Discussed the importance of maintaining adequate nutrition. She will try to have the protein bar daily. She will text me with any questions or concerns. She will return to clinic in approximately 3 weeks. Telehealth Telehealth Location of provider rendering services: practice address Location of patient: address on file Patient Identification confirmed using: Name, : Yes Telehealth method: voice only Patient verbally consented to treatment: Yes Patient verbally consented to billing insurance company: Yes Patient informed of any privacy concerns related to visit: Yes Minutes spent on Phone/Video with Pt.: 20 Coding Level of Care Code Global (92084) Diagnoses Obesity E66.9
[2023-04-26 13:38] VITALS: BMI 32.8
== END 2023-04-26 13:56 | disposition home or self-care (01) ==
LOC: HO.HBS 13:49
PROVIDERS: PCP Internal Medicine; Visit Provider Physician Assistant Surgical
DX: E66.9 Obesity, unspecified (principal)
CPT/HCPCS: 99024

== ENCOUNTER → 2023-04-26 13:49 | Outpatient (BNVA) | payer MEDICARE, MEDICAID, SELFPAY | PROVIDERS: PCP Internal Medicine; Visit Provider Physician Assistant Surgical | DX: E66.9 Obesity, unspecified (principal); Z68.32 Body mass index [BMI] 32.0-32.9, adult | CPT/HCPCS: 99212 ==

== ENCOUNTER 2023-05-19 09:44 | Outpatient (AMB) | payer MEDICARE, MEDICAID, SELFPAY ==
--- NOTE | 2023-05-19 09:26 | A.OFFVIS_ITS ---
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 Allergies mushroom Allergy (Mild, Verified 03/29/23 11:50) THROAT CLOSING Medication List - Last Reconciled 05/19/23 by ATTILA Cisse albuterol sulfate 90 mcg/actuation (ProAir HFA) 2 puffs inhalation Q4-6H PRN 30 days bupropion HCl 300 mg PO DAILY clindamycin phosphate 1% 1 appl topical DAILY dextroamphetamine-amphetamine 10 mg ER 1 cap PO DAILY dextroamphetamine-amphetamine 20 mg ER 1 cap PO DAILY docusate sodium (Colace) 100 mg PO DAILY doxycycline hyclate 100 mg PO BID fluticasone propionate 50 mcg/actuation 2 sprays intranasal DAILY levonorgestrel (Mirena) intrauterine melatonin 3 mg PO BEDTIME PRN pantoprazole 40 mg PO DAILY topiramate 50 mg PO DAILY ustekinumab (Stelara) 90 mg subcut Q4W HPI HPI Comments History of Present Illness Details This?a?32?yo female who is s/p LSG without hiatal hernia repair on?02/16/2023. Presents for three-month post op visit. Weight today is 194.8 pounds, with a BMI of 31.4. There has been a 79 pound weight loss,(initial weight 273.8 pounds) since starting the program on 08/31/2022 reflecting a 28.8% total body weight loss and a weight loss of 55.6 pounds since surgery (operative weight 250.4 pounds) reflecting a 22.2% TBWL since surgery. No complaints of nausea, emesis, abdominal pain or reflux. Reports infrequent but normal bowel movements every 1- 2 days and uses stool softeners regularly. Patient has been dealing with multiple social issues including housing, the belongings of her father who recently , children, job, lost phone, flat tire. She is overall with a good attitude and from a postoperative perspective, she reports that she is doing well and offers no complaints. She does not wish to change her meal plan at this time. She is trying to exercise more as she recently received a stationary bike. Present meal plan includes: 2 celebrate 4 in 1 2 scoops w 8 oz almon d milk 1 ZP bar Drinking 48 -64 oz water ? Exercise routine includes: walking outside daily stationary bike 2 x per week 25 minutes [facility] Medical History Cervical prolapse Constipation Adult general medical exam Yeast dermatitis Hx of abnormal cervical Pap smear Screen for sexually transmitted diseases Shortness of breath Encounter for observation for other suspected diseases and conditions ruled out Psoriasis Cervical cancer screening Smoking Insomnia ADHD Transaminitis Super-super obese Onychogryposis History of drug use History of peptic ulcer Morbid obesity with BMI of 45.0-49.9, adult Asthma Sciatica Low back pain Bipolar 1 disorder GERD (gastroesophageal reflux disease) Anxiety Depression PTSD (post-traumatic stress disorder) Surgical History S/P laparoscopic sleeve gastrectomy History of section H/O dilation and curettage H/O abdominal surgery Family History Father Chronic mental illness Hyperlipidemia HTN (hypertension) Mother Chronic mental illness Obesity Brother No problems noted. Brother No problems noted. Son ADHD Son ADHD Family/Other Substance use disorder Maternal Grandfather Colon cancer Social History Household Members: Family Housing: House Are you a primary furnace caretaker to a significant other at home: No Do you presently have visiting nurse or other home services: No Alcohol intake: current Alcohol intake frequency: a few times a month Patient Tobacco Use Status: Former Tobacco user Quit Date: 01/16/23 Tobacco use type: Cigarette e-Cigarette/Vaping Use: Never Used Second Hand Smoke Exposure: No service: No Current occupational status: unemployed Female Reproductive History Menstrual Age of Menarche: 12 Assessment & Plan Assessment & Plan (1) Obesity: Code(s): E66.9 - Obesity, unspecified Plan: Making slow but steady progress despite multiple social barriers that she has encountered. She continues to overcome these with a very positive attitude. She wishes to continue her current meal plan. She was encouraged to increase her exercise on a stationary bike to at least 4 times per week if she is able and ultimately 7. She will return to the office in approximately 6 weeks, sooner should she have any questions or concerns. She was additionally encouraged to text me with any questions or concerns. Telehealth Telehealth Location of provider rendering services: practice address Location of patient: other Patient Identification confirmed using: Name, : Yes Telehealth method: voice only Patient verbally consented to treatment: Yes Patient informed of any privacy concerns related to visit: Yes Minutes spent on Phone/Video with Pt.: 15 Coding Level of Care Code Tele Est Pt Level 3 (54994) Diagnoses Obesity E66.9 Time Spent (min) 20
[2023-05-19 09:27] VITALS: BMI 31.4
== END 2023-05-19 09:46 | disposition home or self-care (01) ==
LOC: HO.HBS 09:44
PROVIDERS: PCP Internal Medicine; Visit Provider Physician Assistant Surgical
DX: E66.9 Obesity, unspecified (principal); Z68.31 Body mass index [BMI] 31.0-31.9, adult; Z90.3 Acquired absence of stomach [part of]; Z98.84 Bariatric surgery status
CPT/HCPCS: 99442

== ENCOUNTER → 2023-05-19 09:44 | Outpatient (BNVA) | payer MEDICARE, MEDICAID, SELFPAY | PROVIDERS: PCP Internal Medicine; Visit Provider Physician Assistant Surgical ==

== ENCOUNTER 2023-10-24 08:41 | Outpatient (AMB) | payer MEDICARE, MEDICAID, SELFPAY ==
[2023-10-24 08:46] VITALS: BP 110/80; BMI 32.9
--- NOTE | 2023-10-24 08:46 | A.OFFVIS_ITS ---
Intake Vital Signs 10/24/23 08:46 Height 5 ft 6 in Weight 204 lb BMI 32.9 BP 110/80 Blood Pressure Location Lt brachial Position Sitting Intake Visit Reasons: SA[facility] Intake Note: Patient here for a subsequent annual wellness visit Financial Counselor Required: No Accompanied by: Self / Same As Patient Allergies mushroom Allergy (Mild, Verified 10/24/23 09:13) THROAT CLOSING Medication List - Last Reconciled 10/24/23 by Elizabeth Santana MD albuterol sulfate 90 mcg/actuation 2 puffs inhalation Q4-6H PRN 30 days aripiprazole (Abilify) 10 mg PO DAILY clindamycin phosphate 1% 1 appl topical DAILY dextroamphetamine-amphetamine 20 mg ER 1 cap PO DAILY docusate sodium (Colace) 100 mg PO DAILY doxycycline hyclate 100 mg PO BID fluticasone propionate 50 mcg/actuation 2 sprays intranasal DAILY levonorgestrel (Mirena) intrauterine melatonin 5 mg PO BEDTIME PRN pantoprazole 40 mg PO DAILY topiramate 50 mg PO BID tretinoin 0.025% appl topical BEDTIME triamcinolone acetonide 0.1% 1 appl topical BID-TID ustekinumab (Stelara) 90 mg subcut Q4W HPI HPI Comments History of Present Illness Details This is a 33-year-old female with bipolar disorder and severe major depression that comes for her Medicare annual wellness exam. Ppp handed to patient. Pap smear are up-to-date as per patient. Depression has worsened due to a recent relapse in using PCP in which needed rehab. Depression and bipolar disorder are follow by Psychiatry. She complains of blurry vision and would like to see Ophthalmology. She also complains of bilateral shoulder pain, lumbar pain and bilateral hip pain that has been present for few months. Has full active range of motion. Will be referred to pain management. She vapes and would like to restart Chantix. [facility] Medical History (Updated 10/24/23 @ 12:08 by Elizabeth Santana MD) Morbid obesity Morbid obesity with BMI of 40.0-44.9, adult Cervical prolapse Constipation Adult general medical exam Yeast dermatitis Hx of abnormal cervical Pap smear Screen for sexually transmitted diseases Shortness of breath Encounter for observation for other suspected diseases and conditions ruled out Psoriasis Cervical cancer screening Smoking Insomnia ADHD Transaminitis Super-super obese Onychogryposis History of drug use History of peptic ulcer Morbid obesity with BMI of 45.0-49.9, adult Asthma Sciatica Low back pain Bipolar 1 disorder GERD (gastroesophageal reflux disease) Anxiety Depression PTSD (post-traumatic stress disorder) Surgical History S/P laparoscopic sleeve gastrectomy History of section H/O dilation and curettage H/O abdominal surgery Family History Father Chronic mental illness Hyperlipidemia HTN (hypertension) Mother Chronic mental illness Obesity Brother No problems noted. Brother No problems noted. Son ADHD Son ADHD Family/Other Substance use disorder Maternal Grandfather Colon cancer Social History (Updated 10/24/23 @ 09:28 by Elizabeth Santana MD) Household Members: Family Housing: House Are you a primary medicare coordinator to a significant other at home: No Do you presently have visiting nurse or other home services: No Alcohol intake: former Patient Tobacco Use Status: Former Tobacco user Tobacco use type: Cigarette e-Cigarette/Vaping Use: Currently Using Second Hand Smoke Exposure: No service: No Current occupational status: unemployed Female Reproductive History Menstrual Age of Menarche: 12 Questionnaire Medicare Wellness Checkup What gender do you identify with?: female During the past 4 weeks, how much have you been bothered by emotional problems such as feeling anxious, depressed, irritable, sad or downhearted, and blue?: extremely During the past 4 weeks, has your physical & emotional health limited your social activities with family, friends, neighbors, or groups?: extremely During the past 4 weeks, how much bodily pain have you generally had?: moderate pain During the past 4 weeks, was someone available to help you if you needed & wanted help?: yes, as much as I wanted During the past 4 weeks, what was the hardest physical activity you could do for at least 2 minutes?: moderate Can you get to places out of walking distance without help? (For eg., can you travel alone on buses, taxis or drive your car?): Yes Can you go shopping for groceries or clothes without someone's help?: Yes Can you prepare your own meals?: Yes Can you do your housework without help?: Yes Because of any health problems, do you need the help of another person with your personal care needs such as eating, bathing, dressing or getting around the house?: No Can you handle your own money without help?: Yes During the past 4 weeks, how would you rate your health in general?: good During the past 4 weeks how have things been going for you?: good & bad parts about equal Are you having difficulties driving your car?: not applicable, I don't use a car Do you always fasten your seat belt when you are in a car?: yes, usually During past 4 weeks, have you been bothered by the following: never: Sexual problems?, Trouble eating well?, Teeth or denture problems? and Problems using the telephone?, sometimes: Tiredness or fatigue? and often: Falling or dizzy when standing up Have you fallen 2 or more times in the past year?: No Are you afraid of falling?: No Are you a smoker?: yes, and I might quit Do you exercise for about 20 minutes 3 or more times a week?: yes, all the time Have you been given information to help with the following?: yes: Hazards in your house that might hurt you? and yes: Keeping track of your medications? How often do you have trouble taking medicines the way you have been told to take them?: I seldom take medications as prescribed How confident are you that you can control & manage most of your health problems?: very confident What is your race?: White Mini Mental State Exam (MMSE) Orientation What is the (year) (season) (date) (day) (month)?: year, season, date, day and month Where are we (state) (county) (town or city) (hospital) (floor)?: state, county, town or city, hospital/clinic and floor Registration Name of 3 unrelated objects clearly and slowly, then ask patient to repeat all 3 of them. (1st repeat determines score. Make sure they can repeat all three): object 1, object 2 and object 3 Attention & Calculation (CHOOSE ONE) Spell WORLD backwards (DLROW): 5 letters Recall Ask patient to repeat the 3 items from question #3.: object 1, object 2 and object 3 Language Show patient a wristwatch & ask what it is. Repeat for pencil.: watch and pencil Ask the patient to repeat the phrase 'No ifs, ands, or buts' after you.: incorrect Ask the patient to 'take a piece of paper with their right hand' 'fold paper in half' 'place paper on floor': take paper in right hand, fold paper in half and place paper on floor Print the sentence 'CLOSE YOUR EYES' on a piece. If patient actually closes eyes then score.: followed written direction Give patient a blank piece of paper & ask to write a sentence. Score if it contains a noun & verb.: sentence contains subject and verb Ask patient to copy figure of intersecting pentagons exactly. Score if all 10 angles & 2 intersects are included.: all 10 angles present & 2 are intersected Score Score: 29 Activity of Daily Living Bathing - sponge bath, tub bath or shower: receives no assistance (gets in/out by self, if usual bathing means Dressing - getting clothes from closets & drawers, including inner/outer garments & fasteners.: gets clothes & gets completely dressed without help Toileting - going to the 'toilet room' for urine/bowel elimination & cleaning self/arranging clothes: goes to toilet room, cleans self, arranges clothes without help Transfer: moves in & out of bed and chair without help (may use support object) Continence: controls urination/bowel movements completely by self Feeding: feeds self without help Total Score: 0 Information obtained from: patient Using telephone: independent Traveling: independent Shopping: independent Preparing meals: independent Housework: independent Taking medicine: independent Managing money: independent PHQ-9 Over the last 2 weeks, how often have you been bothered by any of the following problems? 1. Little interest or pleasure in doing things: more than half the days 2. Feeling down, depressed, or hopeless: more than half the days 3. Trouble falling or staying asleep, or sleeping too much: nearly every day 4. Feeling tired or having little energy: more than half the days 5. Poor appetite or overeating: more than half the days 6. Feeling bad about yourself - or that you are a failure or have let yourself or your family down: nearly every day 7. Trouble concentrating on things, such as reading the newspaper or watching television: nearly every day 8. Moving or speaking so slowly that other people could have noticed. Or the opposite - being so fidgety or restless that you have been moving around a lot more than usual: nearly every day 9. Thoughts that you would be better off or of hurting yourself in some way: not at all Total score: 20 Depression Screening Interpretation: Positive Depression Screening Follow-up: Existing condition and Follow-up Visit Requested Depression Screening Done: Yes 39609 - PHQ-9 Billing: Yes Source: Developed by Drs. Eleuterio Gómez, Sherin Enrique, Nicolas Garcia and colleagues, with an educational sekou from [employer]. AUDIT C Alcohol Use Questionnaire (AUDIT-C) 1. How often do you have a drink containing alcohol?: Never Total Score: 0 Thrive Questionnaire Date Thrive assessed: 10/24/23 I am a: Patient What is your living situation today?: I have a steady place to live Within the past 12 months, did the food you bought not last and you didn't have the money to get more?: Never true Within the past 12 months, did you worry whether your food would run out before you got money to buy more?: Never true Do you have trouble paying for medicines?: No Do you have trouble getting transportation to medical appointments?: No Do you have trouble paying your heating and electricity bill?: No Do you have trouble taking care of your child, family member or friend?: No Do you have trouble with day-to-day activities such as bathing, preparing meals, shopping, managing finances, etc.?: No Are you currently unemployed and looking for a job?: No Are you interested in more education?: No Please select the resources that you would like help with: None Currently or been in a relationship where the following occur: No concerns reported THRIVE Score: 0 MIKE-7 AMB Questionnaire MIKE-7 Date MIKE - 7 assessed: 10/24/23 Feeling nervous, anxious, or on edge: 2 = More than half the days Not being able to stop or control worryin = Several days Worrying too much about different things: 2 = More than half the days Trouble relaxin = Nearly every day Being so restless that it is hard to sit still: 3 = Nearly every day Becoming easily annoyed or irritable: 3 = Nearly every day Feeling afraid as if something awful might happen: 0 = Not at all Total MIKE-7 score (0-4 normal; 5-9 mild; 10-14 moderate; 15-21 severe): 14 Source: Developed by Drs. Eleuterio Gómez, Sherin Enrique, Nicolas Garcia and colleagues, with an educational sekou from [employer]. MIKE-7 Assessment Billing MIKE-7 Assessment Tool: MIKE-7 Assessment 17673 Review of Systems Const All systems reviewed & are unremarkable except as noted in HPI and below Card Denies chest pain at rest, Denies chest pain with activity, Denies edema, Denies irregular heart rhythm, Denies claudication, Denies dyspnea, Denies dyspnea on exertion, Denies orthopnea, Denies paroxysmal nocturnal dyspnea and Denies slow heart rate Resp Denies cough, Denies dyspnea and Denies dyspnea on exertion Physical Exam Vital Signs: Last Vital Signs BP 110/80 10/24/23 08:46 BMI result Body Mass Index 32.9 Const Orientation/consciousness: patient oriented x3 Resp Effort & Inspection: normal respiratory effort Auscultation: clear to auscultation bilaterally Cardio Jugular venous distension: no JVD Rate: regular rate Rhythm: regular rhythm Heart sounds: S1 normal heart sound present and S2 normal heart sound present Neuro General: patient oriented x3 and gait normal Romberg Test: Negative Extrem General: Yes full ROM Psych Affect: Sad affect present Assessment & Plan Assessment & Plan (1) Encounter for Medicare annual wellness exam: Code(s): Z00.00 - Encounter for general adult medical examination without abnormal findings Plan: Repeat in a year. (2) Right shoulder pain: Code(s): M25.511 - Pain in right shoulder Qualifiers: Chronicity: chronic Qualified Code(s): M25.511 - Pain in right shoulder; G89.29 - Other chronic pain Plan: X-ray ordered. Referred to pain management. (3) Left shoulder pain: Code(s): M25.512 - Pain in left shoulder Qualifiers: Chronicity: chronic Qualified Code(s): M25.512 - Pain in left shoulder; G89.29 - Other chronic pain Plan: X-ray ordered. Referred to pain management. (4) Lumbar pain: Code(s): M54.50 - Low back pain, unspecified Plan: X-ray ordered to pain management. (5) Right hip pain: Code(s): M25.551 - Pain in right hip Plan: X-ray ordered. Referred to pain management. (6) Left hip pain: Code(s): M25.552 - Pain in left hip Plan: X-ray ordered. Referred to pain management. (7) Blurry vision: Code(s): H53.8 - Other visual disturbances Plan: Referred to Ophthalmology. (8) Bipolar 1 disorder: Code(s): F31.9 - Bipolar disorder, unspecified Plan: Continue Abilify. Follow-up with psychiatry. (9) Severe major depression without psychotic features: Code(s): F32.2 - Major depressive disorder, single episode, severe without psychotic features Plan: Continue Abilify. Follow-up with psychiatry. Orders: Orders XR shoulder LT min 2V Today M25.512 - Pain in left shoulder XR shoulder RT min 2V Today M25.511 - Pain in right shoulder XR hip LT min 2V Today M25.552 - Pain in left hip XR hip RT min 2V Today M25.551 - Pain in right hip XR lumbar spine 2-3V Today M54.50 - Low back pain, unspecified Referrals Ophthalmology Referral H53.8 - Other visual disturbances Pain Management Referral M25.511 - Pain in right shoulder, M25.512 - Pain in left shoulder, M25.551 - Pain in right hip, M25.552 - Pain in left hip, M54.50 - Low back pain, unspecified Medications: New Ventolin HFA 90 mcg/actuation (albuterol sulfate) 2 puffs inhalation Q6H PRN 18 grams 2RF shortness of breath or wheezing 30 days NS varenicline (Chantix Starting Month Box) 1 ea PO PER PKG DIR 53 ea 0RF 28 days Changed From albuterol sulfate 90 mcg/actuation (ProAir HFA) 2 puffs inhalation Q4-6H 30 days PRN 6.7 grams 2RF bronchospasm To albuterol sulfate 90 mcg/actuation 2 puffs inhalation Q4-6H PRN 6.7 grams 2RF bronchospasm 30 days Refilled pantoprazole 40 mg PO DAILY 30 tabs 2RF K21.9 - Gastro-esophageal reflux disease without esophagitis docusate sodium (Colace) 100 mg PO DAILY 30 caps 2RF K59.00 - Constipation, unspecified fluticasone propionate 50 mcg/actuation 2 sprays intranasal DAILY 48 mL 6RF Quality Reporting (2019) Depression/Bipolar (159/160/161/177) PHQ-9: Total score: 20 Coding Level of Care Code Medicare First (G0438) Est Pt Level 4 (27930) Diagnoses Encounter for Medicare annual wellness exam Z00.00 Chronic right shoulder pain M25.511; G89.29 Chronicity: chronic Chronic left shoulder pain M25.512; G89.29 Chronicity: chronic Lumbar pain M54.50 Right hip pain M25.551 Left hip pain M25.552 Blurry vision H53.8 Bipolar 1 disorder F31.9 Severe major depression without psychotic features F32.2 Additional Codes MIKE-7 Assessment Billing - MIKE-7 Assessment Tool: MIKE-7 Assessment 05777 ([id number]) Time Spent (min) 41
== END 2023-10-24 09:45 | disposition home or self-care (01) ==
PROVIDERS: PCP Internal Medicine; Visit Provider Internal Medicine
DX: Z00.00 Encounter for general adult medical examination without abnormal findings (principal); M25.551 Pain in right hip; F31.9 Bipolar disorder, unspecified; M25.512 Pain in left shoulder; M25.511 Pain in right shoulder; M25.552 Pain in left hip; M54.50 Low back pain, unspecified; H53.8 Other visual disturbances
CPT/HCPCS: 99214; G0438; G0439

== ENCOUNTER 2023-11-02 08:15 | Outpatient (AMB) | payer MEDICARE, MEDICAID, SELFPAY ==
--- NOTE | 2023-11-02 08:17 | MHC.OFFVISWM ---
VS Expanded 11/02/23 08:26 BP 118/71 Blood Pressure Location Rt brachial Blood Pressure Position Sitting Pulse 101 H Pulse Source Pulse Oximeter Temp 97.3 F Temperature Source Tympanic Pulse Oximetry 98 Oxygen Delivery Method Room Air Height 5 ft 6 in Weight 200 lb 6.4 oz BMI 32.3 Body Fat % 30.7 Body Fat Mass 61.6 Fat Free Mass 138.6 Visceral Fat Rating 6.0 Body Water % 49.6 Body Water Mass 99.2 Muscle Mass/Score 131.6 Basal Metabolic Rate/Score 1,880 Intake Visit Reasons: (OV) Po LSG 02/16/23 Allergies mushroom Allergy (Mild, Verified 11/02/23 08:18) THROAT CLOSING HPI Comments Details: This?a?32?yo female who is s/p LSG without hiatal hernia repair on?02/16/2023. Presents for 8 month post op visit. She has not been seen in the office in approximately 6 months. Weight in May was 194.8 lb with a BMI of 31.4. Weight today is 200.4 pounds, with a BMI of 32.3. There has been a 73.4 pound weight loss,(initial weight 273.8 pounds) since starting the program on 08/31/2022 reflecting a 26.8% total body weight loss and a weight loss of 50 pounds since surgery (operative weight 250.4 pounds) reflecting a 19.9% TBWL since surgery. No complaints of nausea, emesis, abdominal pain or reflux. Reports infrequent but normal bowel movements every 1-2 days and uses stool softeners regularly. Patient has been dealing with several issues with the last 6 months. She had difficulty with the health of her child, she had difficulty with an episode of poor judgment involving alcohol and anxiolytic medications. She is currently working out those issues with the courts. She has now stabilized on her medications and is in a much better place psychiatrically. She has returned to the office for guidance regarding her bariatric surgery and meal planning. Present meal plan includes: none Drinking 32 oz water ? Exercise routine includes: walking outside daily [facility] Medical History (Updated 10/24/23 @ 12:08 by Elizabeth Santana MD) Morbid obesity Morbid obesity with BMI of 40.0-44.9, adult Cervical prolapse Constipation Adult general medical exam Yeast dermatitis Hx of abnormal cervical Pap smear Screen for sexually transmitted diseases Shortness of breath Encounter for observation for other suspected diseases and conditions ruled out Psoriasis Cervical cancer screening Smoking Insomnia ADHD Transaminitis Super-super obese Onychogryposis History of drug use History of peptic ulcer Morbid obesity with BMI of 45.0-49.9, adult Asthma Sciatica Low back pain Bipolar 1 disorder GERD (gastroesophageal reflux disease) Anxiety Depression PTSD (post-traumatic stress disorder) Surgical History S/P laparoscopic sleeve gastrectomy History of section H/O dilation and curettage H/O abdominal surgery Family History Father Chronic mental illness Hyperlipidemia HTN (hypertension) Mother Chronic mental illness Obesity Brother No problems noted. Brother No problems noted. Son ADHD Son ADHD Family/Other Substance use disorder Maternal Grandfather Colon cancer Social History Household Members: Family Housing: House Are you a primary healthcare receptionist to a significant other at home: No Do you presently have visiting nurse or other home services: No Alcohol intake: former Patient Tobacco Use Status: Former Tobacco user Tobacco use type: Cigarette e-Cigarette/Vaping Use: Currently Using Second Hand Smoke Exposure: No service: No Current occupational status: unemployed Female Reproductive History Menstrual Age of Menarche: 12 Physical Exam Vital Signs: Last Vital Signs Temp 97.3 F 11/02/23 08:26 Pulse 101 H 11/02/23 08:26 BP 118/71 11/02/23 08:26 Pulse Ox 98 11/02/23 08:26 Oxygen Delivery Method Room Air 11/02/23 08:26 BMI result Body Mass Index 32.3 Const General: healthy appearing and no acute distress Resp Effort & Inspection: normal respiratory effort Auscultation: clear to auscultation bilaterally Cardio Rate: regular rate Rhythm: regular rhythm GI Auscultation: normal bowel sounds Extrem General: Yes normal to inspection Assessment & Plan Assessment & Plan (1) S/P laparoscopic sleeve gastrectomy: Code(s): Z98.84 - Bariatric surgery status Category: Surgical Plan: Resume meal plan with celebrate 4 in 1 shakes, 2 scoops in 10 oz of unsweetened almond milk x2. Meal with 6 forks protein and 6 forks veggies. Increase fluids to 64 oz daily. Add MiraLax for constipation. Check six-month postop labs. Return to clinic 4 weeks. Orders: Orders Lipid Panel Today E53.8 - Deficiency of other specified B group vitamins, E66.9 - Obesity, unspecified, Z98.84 - Bariatric surgery status Vitamin B12 and Folate Today E53.8 - Deficiency of other specified B group vitamins, E66.9 - Obesity, unspecified, Z98.84 - Bariatric surgery status Zinc Today E53.8 - Deficiency of other specified B group vitamins, E66.9 - Obesity, unspecified, Z98.84 - Bariatric surgery status C Reactive Protein Today E53.8 - Deficiency of other specified B group vitamins, E66.9 - Obesity, unspecified, Z98.84 - Bariatric surgery status Vitamin A Today E53.8 - Deficiency of other specified B group vitamins, E66.9 - Obesity, unspecified, Z98.84 - Bariatric surgery status TSH reflex Free T4 Today E53.8 - Deficiency of other specified B group vitamins, E66.9 - Obesity, unspecified, Z98.84 - Bariatric surgery status Ferritin Today E53.8 - Deficiency of other specified B group vitamins, E66.9 - Obesity, unspecified, Z98.84 - Bariatric surgery status Vitamin D 25-OH Total Today E53.8 - Deficiency of other specified B group vitamins, E66.9 - Obesity, unspecified, Z98.84 - Bariatric surgery status Basic Metabolic Panel Today E53.8 - Deficiency of other specified B group vitamins, E66.9 - Obesity, unspecified, Z98.84 - Bariatric surgery status Insulin Today E53.8 - Deficiency of other specified B group vitamins, E66.9 - Obesity, unspecified, Z98.84 - Bariatric surgery status Hemoglobin A1c Today E53.8 - Deficiency of other specified B group vitamins, E66.9 - Obesity, unspecified, Z98.84 - Bariatric surgery status Complete Blood Count Auto Diff Today E53.8 - Deficiency of other specified B group vitamins, E66.9 - Obesity, unspecified, Z98.84 - Bariatric surgery status IRON PROFILE Today E53.8 - Deficiency of other specified B group vitamins, E66.9 - Obesity, unspecified, Z98.84 - Bariatric surgery status Vitamin B1 Today E53.8 - Deficiency of other specified B group vitamins, E66.9 - Obesity, unspecified, Z98.84 - Bariatric surgery status Medications: New polyethylene glycol 3350 (Miralax) 17 grams PO DAILY 238 grams 2RF
[2023-11-02 08:26] VITALS: BP 118/71; PULSE 101; TEMP 36.3; O2SAT 98; BMI 32.3
== END 2023-11-02 08:52 | disposition home or self-care (01) ==
PROVIDERS: PCP Internal Medicine; Visit Provider Physician Assistant Surgical
DX: E66.3 Overweight (principal); Z68.32 Body mass index [BMI] 32.0-32.9, adult; Z90.3 Acquired absence of stomach [part of]; Z98.84 Bariatric surgery status
CPT/HCPCS: 99214

== ENCOUNTER → 2023-11-02 08:15 | Outpatient (BNVA) | payer MEDICARE, MEDICAID, SELFPAY | PROVIDERS: PCP Internal Medicine; Visit Provider Physician Assistant Surgical | DX: E53.8 Deficiency of other specified B group vitamins (principal); E66.9 Obesity, unspecified; Z98.84 Bariatric surgery status | CPT/HCPCS: 99212 ==

== ENCOUNTER 2023-11-25 08:52 | Outpatient (REF) | payer MEDICARE, MEDICAID, SELFPAY ==
[2023-11-25 09:23] LABS: MANUAL DIFF FLAG NO
[2023-11-25 10:33] LABS: Anion Gap 12 (12-20); Blood Urea Nitrogen 9 mg/dL (9-16); C Reactive Protein < 0.10 mg/dL (< or = 0.50); Calcium 9.5 mg/dL (8.4-10.2); Carbon Dioxide 25 mmol/L (22-29); Chloride 108 mmol/L (96-108); Cholesterol 142 mg/dL (<200); Estimated Glomerular Filt Rate > 60; Glucose Random 88 mg/dL (60-115); HDL Cholesterol 53 mg/dL (>40); Iron 172 mcg/dL (30-160); LDL Cholesterol Calculated 81 mg/dL (<100); Percent Iron Saturation 68 % (15-50); Potassium 4.1 mmol/L (3.3-5.1); Sodium 141 mmol/L (135-145); Total Iron Binding Capacity 253 mcg/dL (228-428); Triglycerides 40 mg/dL (<150); Unsaturated Iron Binding 81 ug/dL
[2023-11-25 10:42] LABS: Basophils Percent Auto 0.5 % (0-2); Eosinophils Absolute Auto 0.1 X10*3/uL (0.0-0.4); Hematocrit 41.2 % (37.0-47.0); Hemoglobin 13.8 g/dl (12.0-16.0); Imm Gran Abs Auto 0.01 X10*3/uL (0.00-0.03); Imm Gran Pct Auto 0.2 % (0.0-0.4); Lymphocytes Absolute Auto 2.2 X10*3/uL (1.2-4.9); Lymphocytes Percent Auto 35.7 % (20-40); Mean Corpuscular HGB Conc 33.5 g/dl (31.0-35.0); Mean Corpuscular Hemoglobin 31.3 pg (27.0-33.0); Mean Corpuscular Volume 93.4 fL (80.0-98.0); Mean Platelet Volume 11.1 fL (9.4-12.3); Monocytes Absolute Auto 0.4 X10*3/uL (0.1-1.2); Monocytes Percent Auto 7.3 % (2-11); Neutrophils Absolute Auto 3.3 x10*3/uL (2.0-8.3); Neutrophils Percent Auto 55.3 % (45-73); Platelet Count 246 X10*3/uL (160-400); Red Blood Count 4.41 X10*6/uL (4.20-5.50); Red Cell Distribution Width 12.5 % (11.0-16.0)
[2023-11-25 10:47] LABS: Estimated Average Glucose 91 mg/dL; Hemoglobin A1c % 4.8 % (<6.0)
[2023-11-25 10:50] LABS: Ferritin 105 ng/mL (10-122); Insulin 4 uU/mL (2-29); TSH reflex Free T4 1.73 uIU/mL (0.32-4.0); Vitamin D 25-OH Total 43.9 ng/mL (>30)
[2023-11-25 11:02] LABS: Folate 11.9 ng/mL (> or = 4.0); Vitamin B12 408 pg/mL (200-900)
[2023-11-29 01:13] LABS: Zinc 72 mcg/dL (60-130)
[2023-12-01 00:18] LABS: Vitamin A 52 mcg/dL (38-98)
[2023-12-01 18:03] LABS: Vitamin B1 13 nmol/L (8-30)
== END 2023-11-25 08:53 | disposition home or self-care (01) ==
LOC: HO.LAB 08:52
PROVIDERS: PCP Internal Medicine; Visit Provider Physician Assistant Surgical
DX: E66.9 Obesity, unspecified (principal); E53.8 Deficiency of other specified B group vitamins; Z98.84 Bariatric surgery status; Z13.1 Encounter for screening for diabetes mellitus
CPT/HCPCS: 36415; 80048; 80061; 82306; 82607; 82728; 82746; 83036; 83525; 83540; 84425; 84443; 84590; 84630; 85025; 86140

== ENCOUNTER 2023-12-05 13:00 | Outpatient (AMB) | payer MEDICARE, MEDICAID, SELFPAY ==
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
[2023-12-05 13:11] VITALS: BP 141/77; PULSE 99; O2SAT 98; BMI 33.9
== END 2023-12-05 13:37 | disposition home or self-care (01) ==
PROVIDERS: PCP Internal Medicine; Referring Provider Internal Medicine; Visit Provider Nurse Practitioner Family
DX: M25.511 Pain in right shoulder (principal); G89.29 Other chronic pain; M25.512 Pain in left shoulder; M54.50 Low back pain, unspecified; M25.551 Pain in right hip; M25.552 Pain in left hip; F10.188 Alcohol abuse with other alcohol-induced disorder; M79.18 Myalgia, other site
CPT/HCPCS: 99204; G2211

== ENCOUNTER → 2023-12-05 13:00 | Outpatient (BNVA) | payer MEDICARE, MEDICAID, SELFPAY | PROVIDERS: PCP Internal Medicine; Referring Provider Internal Medicine; Visit Provider Nurse Practitioner Family | DX: Z13.89 Encounter for screening for other disorder (principal) | CPT/HCPCS: 99202 ==

== ENCOUNTER 2023-12-05 13:43 | Outpatient (REF) | payer MEDICARE, MEDICAID, SELFPAY ==
--- NOTE | ~2023-12-05 | XR_ITS ---
EXAMINATION: XR SHOULDER, RIGHT CLINICAL INFORMATION: Right shoulder pain. COMPARISON: None available. TECHNIQUE: AP external rotation, Grashey, scapular Y, and axillary views of the right shoulder. FINDINGS: No acute fracture or dislocation. Small acromioclavicular marginal osteophytes. No glenohumeral joint space narrowing or marginal osteophytes. No osseous erosion. No abnormal soft tissue calcification. XR/XR shoulder RT min 2V IMPRESSION: Mild acromioclavicular osteoarthritis. Electronically signed by: Jorge Arceo MD 12/11/2023 09:28 PM EDT
--- NOTE | ~2023-12-05 | XR_ITS ---
EXAMINATION: XR LUMBOSACRAL SPINE CLINICAL INFORMATION: Lower back pain. COMPARISON: CT abdomen/pelvis dated 09/16/2016. TECHNIQUE: Three views of the lumbosacral spine. FINDINGS: The vertebral bodies and posterior elements are normal. The disc spaces are preserved and the vertebral alignment is normal. Partially visualized upper abdominal surgical clips. IUD within the pelvis. XR/XR lumbar spine 2-3V IMPRESSION: Unremarkable examination. Electronically signed by: Jorge Arceo MD 12/21/2023 07:44 PM EDT
--- NOTE | ~2023-12-05 | XR_ITS ---
EXAMINATION: XR HIP, RIGHT XR HIP, LEFT CLINICAL INFORMATION: Right and left hip pain. COMPARISON: Left hip radiographs dated 01/09/2018. TECHNIQUE: AP and frog-leg lateral views of the right and left hip. FINDINGS: Right Hip: Mild joint space narrowing with tiny marginal osteophytes. No acute fracture or dislocation. No osseous erosion. No evidence of avascular necrosis. IUD within the pelvis. Left Hip: Mild joint space narrowing with tiny acetabular marginal osteophytes. No acute fracture or dislocation. No osseous erosion. No evidence of avascular necrosis. IUD within the pelvis. XR/XR hip RT min 2V IMPRESSION: RIGHT HIP: Minimal osteoarthritis. LEFT HIP: Minimal osteoarthritis. Electronically signed by: Jorge Arceo MD 12/11/2023 09:28 PM EDT
--- NOTE | ~2023-12-05 | XR_ITS ---
EXAMINATION: XR HIP, RIGHT XR HIP, LEFT CLINICAL INFORMATION: Right and left hip pain. COMPARISON: Left hip radiographs dated 01/09/2018. TECHNIQUE: AP and frog-leg lateral views of the right and left hip. FINDINGS: Right Hip: Mild joint space narrowing with tiny marginal osteophytes. No acute fracture or dislocation. No osseous erosion. No evidence of avascular necrosis. IUD within the pelvis. Left Hip: Mild joint space narrowing with tiny acetabular marginal osteophytes. No acute fracture or dislocation. No osseous erosion. No evidence of avascular necrosis. IUD within the pelvis. XR/XR hip LT min 2V IMPRESSION: RIGHT HIP: Minimal osteoarthritis. LEFT HIP: Minimal osteoarthritis. Electronically signed by: Jorge Arceo MD 12/11/2023 09:28 PM EDT
--- NOTE | ~2023-12-05 | XR_ITS ---
EXAMINATION: XR SHOULDER, LEFT CLINICAL INFORMATION: Left shoulder pain. COMPARISON: Most recent left shoulder radiographs dated 11/13/2019. TECHNIQUE: AP external rotation, Grashey, scapular Y, and axillary views of the left shoulder. FINDINGS: The bones and soft tissues are normal. No fracture. Glenohumeral and acromioclavicular alignment is anatomic with normal joint space. No abnormal soft tissue calcifications. XR/XR shoulder LT min 2V IMPRESSION: Unremarkable examination. Electronically signed by: Jorge Arceo MD 12/11/2023 09:28 PM EDT
== END 2023-12-05 13:44 | disposition home or self-care (01) ==
LOC: HO.XRAY 13:43
PROVIDERS: PCP Internal Medicine; Visit Provider Internal Medicine
DX: M25.511 Pain in right shoulder (principal); M25.551 Pain in right hip; M25.512 Pain in left shoulder; M25.552 Pain in left hip; M54.50 Low back pain, unspecified
CPT/HCPCS: 72100; 73030; 73502; 99202

== ENCOUNTER 2023-12-08 09:43 | Outpatient (AMB) | payer MEDICARE, MEDICAID, SELFPAY ==
--- NOTE | 2023-12-08 10:28 | A.OFFVISCC_ITS ---
Intake Visit Reasons: Intake Allergies mushroom Allergy (Mild, Verified 12/05/23 13:09) THROAT CLOSING HPI HPI Intake: Details: Patient presents for intake and treatment of AUD Drinking 15-20 nips vodka (not mixed) 3 nips to not have sx this last week 7-10 nips Denies any history of seizures Slight tremor Previously in recovery from 2018 until March 2023 (father's ) Attending AA and NA Just completed IOP at [facility] anger management, grief and loss, and parenting groups All groups via [facility] Currently lives with boyfriend who she identifies as supportive Grandparents, asset recovery specialist, therapist Health History: -February 2023 gastric sleeve -wound vac following -reviewed medication list [facility] Medical History Morbid obesity Morbid obesity with BMI of 40.0-44.9, adult Cervical prolapse Constipation Adult general medical exam Yeast dermatitis Hx of abnormal cervical Pap smear Screen for sexually transmitted diseases Shortness of breath Encounter for observation for other suspected diseases and conditions ruled out Psoriasis Cervical cancer screening Smoking Insomnia ADHD Transaminitis Super-super obese Onychogryposis History of drug use History of peptic ulcer Morbid obesity with BMI of 45.0-49.9, adult Asthma Sciatica Low back pain Bipolar 1 disorder GERD (gastroesophageal reflux disease) Anxiety Depression PTSD (post-traumatic stress disorder) Surgical History S/P laparoscopic sleeve gastrectomy History of section H/O dilation and curettage H/O abdominal surgery Family History Father Chronic mental illness Hyperlipidemia HTN (hypertension) Mother Chronic mental illness Obesity Brother No problems noted. Brother No problems noted. Son ADHD Son ADHD Family/Other Substance use disorder Maternal Grandfather Colon cancer Social History (Updated 12/05/23 @ 13:38 by Sapna Amaya) Household Members: Family Housing: House Are you a primary rn primary care to a significant other at home: No Do you presently have visiting nurse or other home services: No Alcohol intake: current Alcohol type: hard liquor Patient Tobacco Use Status: Current everyday Tobacco user Tobacco use type: Cigarette Cigarettes Per Day: 7 e-Cigarette/Vaping Use: Currently Using Second Hand Smoke Exposure: No service: No Current occupational status: unemployed Female Reproductive History Menstrual Age of Menarche: 12 Review of Systems Const Reports as per HPI Psych Reports anxiety and Reports anhedonia Physical Exam Const General: cooperative, healthy appearing and anxious Nutritional Appearance: overweight Orientation/consciousness: patient oriented x3 Limitations: no limitations Neuro General: patient oriented x3 Psych Appearance: well kempt Speech and movement: Clear speech present Attitude: cooperative Thought process: Normal thought process present Thought content: Normal thought content present Insight: Fair insight present (Psych) Judgement: Good judgement present (Psych) Assessment & Plan Assessment & Plan (1) Alcohol use disorder, severe, dependence: Code(s): F10.20 - Alcohol dependence, uncomplicated Category: Medical Plan: * naltrexone QD--patient familiar with medication * discussed ongoing taper of alcohol with goal to stop completely * follow up with RN one week and provider 3 weeks Medications: New gabapentin 100 mg PO BID PRN 20 caps 0RF anxiety naltrexone take 1/2 daily for 3 days then increase to one tab daily 50 mg PO DAILY 30 tabs 0RF
== END 2023-12-08 11:07 | disposition home or self-care (01) ==
PROVIDERS: PCP Internal Medicine; Visit Provider Nurse Practitioner Psychiatric/Mental Health
DX: F10.20 Alcohol dependence, uncomplicated (principal)
CPT/HCPCS: 99442

== ENCOUNTER → 2023-12-08 09:43 | Outpatient (BNVA) | payer MEDICARE, MEDICAID, SELFPAY | PROVIDERS: PCP Internal Medicine; Visit Provider Nurse Practitioner Psychiatric/Mental Health ==

== ENCOUNTER 2023-12-14 15:07 | Outpatient (REF) | payer MEDICARE, MEDICAID, SELFPAY ==
[2023-12-14 16:42] LABS: Influenza A PCR NEGATIVE (Negative); Influenza B PCR NEGATIVE (Negative); Resp Syncy Virus RNA Qual PCR NEGATIVE (Negative); SARS COV2 PCR INHOUSE NEGATIVE (Negative)
== END 2023-12-14 15:08 | disposition home or self-care (01) ==
LOC: HO.LAB 15:07
PROVIDERS: PCP Internal Medicine; Visit Provider Internal Medicine
DX: R09.89 Other specified symptoms and signs involving the circulatory and respiratory systems (principal)
CPT/HCPCS: 0241U

== ENCOUNTER → 2023-12-21 09:14 | Outpatient (BNVA) | payer MEDICARE, MEDICAID, SELFPAY | PROVIDERS: PCP Internal Medicine ==

== ENCOUNTER 2024-01-03 13:11 | Outpatient (REF) | payer MEDICARE, MEDICAID, SELFPAY ==
[2024-01-03 14:39] LABS: Alanine Aminotransferase 10 U/L (0-31); Albumin Level 4.6 g/dL (3.5-5.0); Alkaline Phosphatase 56 U/L (39-117); Anion Gap 12 (12-20); Aspartate Amino Transferase 15 U/L (5-31); Bilirubin Total 0.3 mg/dL (0.0-1.0); Blood Urea Nitrogen 8 mg/dL (9-16); Calcium 9.7 mg/dL (8.4-10.2); Carbon Dioxide 26 mmol/L (22-29); Chloride 106 mmol/L (96-108); Estimated Glomerular Filt Rate > 60; Glucose Random 62 mg/dL (60-115); Potassium 3.7 mmol/L (3.3-5.1); Sodium 140 mmol/L (135-145); Total Protein 7.3 g/dL (6.5-8.0)
== END 2024-01-03 13:12 | disposition home or self-care (01) ==
LOC: HO.LAB 13:11
PROVIDERS: Visit Provider Nurse Practitioner Psychiatric/Mental Health
DX: F11.20 Opioid dependence, uncomplicated (principal)
CPT/HCPCS: 36415; 80053; 96372; 99212; J2315

== ENCOUNTER 2024-01-03 13:24 | Outpatient (AMB) | payer MEDICARE, MEDICAID, SELFPAY ==
--- NOTE | 2024-01-03 13:34 | MHC.AM.SUB ---
Intake Visit Reasons: MAT Office Allergies mushroom Allergy (Mild, Verified 12/05/23 13:09) THROAT CLOSING HPI HPI MAT Office: Details: Patient presents for follow up and 1st vivitrol injection Has been tolerating PO doses of naltrexone continues to abstain from alcohol started working today at [employer] affect feels hopeful [facility] Medical History Morbid obesity Morbid obesity with BMI of 40.0-44.9, adult Cervical prolapse Constipation Adult general medical exam Yeast dermatitis Hx of abnormal cervical Pap smear Screen for sexually transmitted diseases Shortness of breath Encounter for observation for other suspected diseases and conditions ruled out Psoriasis Cervical cancer screening Smoking Insomnia ADHD Transaminitis Super-super obese Onychogryposis History of drug use History of peptic ulcer Morbid obesity with BMI of 45.0-49.9, adult Asthma Sciatica Low back pain Bipolar 1 disorder GERD (gastroesophageal reflux disease) Anxiety Depression PTSD (post-traumatic stress disorder) Surgical History S/P laparoscopic sleeve gastrectomy History of section H/O dilation and curettage H/O abdominal surgery Family History Father Chronic mental illness Hyperlipidemia HTN (hypertension) Mother Chronic mental illness Obesity Brother No problems noted. Brother No problems noted. Son ADHD Son ADHD Family/Other Substance use disorder Maternal Grandfather Colon cancer Social History (Updated 12/05/23 @ 13:38 by Sapna Amaya) Household Members: Family Housing: House Are you a primary acute care physician to a significant other at home: No Do you presently have visiting nurse or other home services: No Alcohol intake: current Alcohol type: hard liquor Patient Tobacco Use Status: Current everyday Tobacco user Tobacco use type: Cigarette Cigarettes Per Day: 7 e-Cigarette/Vaping Use: Currently Using Second Hand Smoke Exposure: No service: No Current occupational status: unemployed Female Reproductive History Menstrual Age of Menarche: 12 Review of Systems Const Reports as per HPI and Reports no additional complaints Physical Exam Const General: cooperative, healthy appearing and well groomed Orientation/consciousness: patient oriented x3 Limitations: no limitations Neuro General: patient oriented x3 Office Meds Vivitrol 380 mg intramuscular suspension,extended release Performing Provider: Ana Guadarrama CNP Performing Location: [facility] Administered by: Emma Doll RN on 01/05/24 16:34 Dose Route Admin Location Dispensed Lot Number Expiration Date [facility] Panel Machine Tender 380 mg IM LG 380 mg [id number] 05/03/26 81215-694-80 [employer]! Assessment & Plan Assessment & Plan (1) Alcohol use disorder, severe, dependence: Code(s): F10.20 - Alcohol dependence, uncomplicated Category: Medical Plan: tolerated injection reviewed side effects and when to call office labs completed and reviewed follow up 4 weeks Orders: Orders AMB Naltrexone Injection Patient Supplied (NC) 01/03/24 F10.20 - Alcohol dependence, uncomplicated Medications: New Vivitrol ER (naltrexone microspheres) 380 mg IM ONCE 1 ea 0RF NS F10.20 - Alcohol dependence, uncomplicated
== END 2024-01-03 14:36 | disposition home or self-care (01) ==
PROVIDERS: PCP Internal Medicine; Visit Provider Nurse Practitioner Psychiatric/Mental Health
DX: F10.20 Alcohol dependence, uncomplicated (principal)
CPT/HCPCS: 99214

== ENCOUNTER 2024-01-30 08:57 | Outpatient (AMB) | payer MEDICARE, MEDICAID, SELFPAY ==
--- NOTE | 2024-01-30 09:04 | AM.OFFVISNUR ---
Intake Visit Reasons: Vivitrol Injection Allergies mushroom Allergy (Mild, Verified 12/05/23 13:09) THROAT CLOSING Nursing Note Patient Presents for Vivitrol Injection. Current Dose 380mg . Given in the LG with no noted or stated complication. Denies any issues with previous injection. Denies symptoms, and denies any break through cravings. Will follow up with RN in 4 weeks for injection. Will need to see provider for check in February . Office Meds Vivitrol 380 mg intramuscular suspension,extended release Performing Provider: Ana Guadarrama CNP Performing Location: [facility] Administered by: Emma Doll RN on 01/30/24 09:21 Dose Route Admin Location Dispensed Lot Number Expiration Date [facility] Land Sales Agent 380 mg IM LG 380 mg [id number] 07/31/26 80764-938-34 [employer] Assessment & Plan Assessment & Plan Orders: Orders AMB Naltrexone Injection Patient Supplied (NC) Today F10.20 - Alcohol dependence, uncomplicated Medications: New Vivitrol ER (naltrexone microspheres) 380 mg IM ONCE 1 ea 0RF NS F10.20 - Alcohol dependence, uncomplicated
== END 2024-01-30 09:17 | disposition home or self-care (01) ==
LOC: HO.HCC 08:58
PROVIDERS: PCP Internal Medicine
DX: F10.20 Alcohol dependence, uncomplicated (principal)

== ENCOUNTER → 2024-01-30 08:57 | Outpatient (BNVA) | payer MEDICARE, MEDICAID, SELFPAY | PROVIDERS: PCP Internal Medicine | DX: F10.20 Alcohol dependence, uncomplicated (principal); Z51.81 Encounter for therapeutic drug level monitoring; Z79.899 Other long term (current) drug therapy | CPT/HCPCS: 96372; J2315 ==

== ENCOUNTER 2024-02-28 08:54 | Outpatient (AMB) | payer MEDICARE, MEDICAID, SELFPAY ==
--- NOTE | 2024-02-28 09:07 | A.OFFVISCC_ITS ---
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 [employer] --enjoys her job Tolerating injection --no concerns related to medication Review of Systems Const Reports as per HPI and Reports no additional complaints Physical Exam Const General: cooperative, healthy appearing and well groomed Orientation/consciousness: patient oriented x3 Limitations: no limitations Neuro General: patient oriented x3 Psych Appearance: well kempt Speech and movement: Clear speech present Affect: normal affect Attitude: cooperative Thought process: Normal thought process present Thought content: Normal thought content present Insight: Good insight present (Psych) Judgement: Good judgement present (Psych) Office Meds Vivitrol 380 mg intramuscular suspension,extended release Performing Provider: Ana Guadarrama CNP Performing Location: [facility] Administered by: Emma Doll RN on 02/28/24 12:54 Dose Route Admin Location Dispensed Lot Number Expiration Date [facility] Inker Machine 380 mg IM LG 380 mg [id number] 06/12/26 61860-832-07 [employer] Assessment & Plan Assessment & Plan (1) Alcohol use disorder, severe, dependence: Code(s): F10.20 - Alcohol dependence, uncomplicated Category: Medical Plan: * tolerated injection * relapse prevention discussion * follow up 4 weeks Orders: Orders AMB Naltrexone Injection Patient Supplied (NC) 02/28/24 F10.20 - Alcohol dependence, uncomplicated [facility] Medical History Morbid obesity Morbid obesity with BMI of 40.0-44.9, adult Cervical prolapse Constipation Adult general medical exam Yeast dermatitis Hx of abnormal cervical Pap smear Screen for sexually transmitted diseases Shortness of breath Encounter for observation for other suspected diseases and conditions ruled out Psoriasis Cervical cancer screening Smoking Insomnia ADHD Transaminitis Super-super obese Onychogryposis History of drug use History of peptic ulcer Morbid obesity with BMI of 45.0-49.9, adult Asthma Sciatica Low back pain Bipolar 1 disorder GERD (gastroesophageal reflux disease) Anxiety Depression PTSD (post-traumatic stress disorder) Surgical History S/P laparoscopic sleeve gastrectomy History of section H/O dilation and curettage H/O abdominal surgery Family History Father Chronic mental illness Hyperlipidemia HTN (hypertension) Mother Chronic mental illness Obesity Brother No problems noted. Brother No problems noted. Son ADHD Son ADHD Family/Other Substance use disorder Maternal Grandfather Colon cancer Social History (Updated 12/05/23 @ 13:38 by Sapna Amaya) Household Members: Family Housing: House Are you a primary residential care officer to a significant other at home: No Do you presently have visiting nurse or other home services: No Alcohol intake: current Alcohol type: hard liquor Patient Tobacco Use Status: Current everyday Tobacco user Tobacco use type: Cigarette Cigarettes Per Day: 7 e-Cigarette/Vaping Use: Currently Using Second Hand Smoke Exposure: No service: No Current occupational status: unemployed
== END 2024-02-28 09:28 | disposition home or self-care (01) ==
PROVIDERS: PCP Internal Medicine; Visit Provider Nurse Practitioner Psychiatric/Mental Health
DX: F10.20 Alcohol dependence, uncomplicated (principal)
CPT/HCPCS: 99213

== ENCOUNTER → 2024-02-28 08:54 | Outpatient (BNVA) | payer MEDICARE, MEDICAID, SELFPAY | PROVIDERS: PCP Internal Medicine; Visit Provider Nurse Practitioner Psychiatric/Mental Health | DX: F10.20 Alcohol dependence, uncomplicated (principal) | CPT/HCPCS: 96372; 99212; J2315 ==

== ENCOUNTER 2024-03-12 10:46 | Outpatient (AMB) | payer MEDICARE, MEDICAID, SELFPAY ==
--- NOTE | 2024-03-12 11:27 | MHC.OFFWIV ---
Intake Vital Signs 03/12/24 11:30 Weight 212 lb BP 120/80 Blood Pressure Location Rt brachial Position Sitting Pulse 74 Pulse Source Pulse Oximeter Temp 97.9 F Temp Source Oral Pulse Oximetry (%) 97 Oxygen Delivery Method Room Air Intake Visit Reasons: EP sore throat, pain on both ears Intake Note: Patient here for sore throat and bilat ear pain that has been present for about 5 days. Patient Tobacco Use Status: Current everyday Tobacco user Allergies mushroom Allergy (Mild, Verified 03/12/24 11:31) THROAT CLOSING Do you need a note to return to daycare/school/sports/work: Yes HPI HPI Comments History of Present Illness Details History The patient is a 33-year-old female presenting with symptoms of a sore throat and ear pain. The sore throat began five days ago and has progressively worsened, leading to swelling. The pain and swelling have subsequently extended into the ears, with the right ear being more affected than the left. The patient reports the onset of a cough and describes experiencing fluctuations in body temperature, characterized by hot and cold flashes. She has a history of asthma but does not currently report wheezing or shortness of breath. The patient does not have an albuterol inhaler at home, though it is prescribed on an as-needed basis. She has had a history of asthma management with inhalers, but has not yet refilled the prescription available from October. The patient denies any other recent illnesses among household members and confirms no allergies to antibiotics. Physical Exam General: Cooperative, healthy appearing, comfortable and no acute distress Orientation/consciousness: Patient oriented x3 Limitations: No limitations Head: Normal to inspection Ears: Right TM purulent effusion noted with erythema, left ear TM and EAC normal Nose: Normal external nose present, Normal nares present and No nasal discharge present Face and sinus: Normal facial exam and Yes sinuses nontender Mouth: Normal oral and palatal mucosa present and moist mucous membranes Throat: Yes tonsils normal, Yes uvula midline. Posterior oropharynx erythema, no exudates Eyes: Appearance normal, both eyes and all related structures Neck: Normal visual inspection Respiratory: Clear to auscultation bilaterally. Normal respiratory effort, able to speak in complete sentences, no respiratory distress, not tachypneic, no tripod positioning and no use of accessory muscles Cardiovascular: Regular rate and rhythm. Normal S1 and S2 Skin: No rashes or lesions noted Neuro: Patient oriented x3 Extremities: Normal to inspection and Yes no clubbing, cyanosis or edema PFSH Medical History Morbid obesity Morbid obesity with BMI of 40.0-44.9, adult Cervical prolapse Constipation Adult general medical exam Yeast dermatitis Hx of abnormal cervical Pap smear Screen for sexually transmitted diseases Shortness of breath Encounter for observation for other suspected diseases and conditions ruled out Psoriasis Cervical cancer screening Smoking Insomnia ADHD Transaminitis Super-super obese Onychogryposis History of drug use History of peptic ulcer Morbid obesity with BMI of 45.0-49.9, adult Asthma Sciatica Low back pain Bipolar 1 disorder GERD (gastroesophageal reflux disease) Anxiety Depression PTSD (post-traumatic stress disorder) Surgical History S/P laparoscopic sleeve gastrectomy History of section H/O dilation and curettage H/O abdominal surgery Family History Father Chronic mental illness Hyperlipidemia HTN (hypertension) Mother Chronic mental illness Obesity Brother No problems noted. Brother No problems noted. Son ADHD Son ADHD Family/Other Substance use disorder Maternal Grandfather Colon cancer Social History (Updated 12/05/23 @ 13:38 by Sapna Amaya) Household Members: Family Housing: House Are you a primary nurse care manager to a significant other at home: No Do you presently have visiting nurse or other home services: No Alcohol intake: current Alcohol type: hard liquor Patient Tobacco Use Status: Current everyday Tobacco user Tobacco use type: Cigarette Cigarettes Per Day: 7 e-Cigarette/Vaping Use: Currently Using Second Hand Smoke Exposure: No service: No Current occupational status: unemployed Female Reproductive History Menstrual Age of Menarche: 12 Review of Systems Const All systems reviewed & are unremarkable except as noted in HPI and below Physical Exam Vital Signs: Last Vital Signs Temp 97.9 F 03/12/24 11:30 Pulse 74 03/12/24 11:30 BP 120/80 03/12/24 11:30 Pulse Ox 97 03/12/24 11:30 Oxygen Delivery Method Room Air 03/12/24 11:30 Assessment & Plan Assessment & Plan (1) URI, acute: Code(s): J06.9 - Acute upper respiratory infection, unspecified Plan: Acute Pharyngitis: A rapid strep test was performed and resulted negative. The patient will be monitored for symptoms and may take allergy medications daily to alleviate nasal congestion and drainage. Asthma: The patient will also be tested for influenza, COVID-19, and RSV to rule out additional viral infections. She is instructed to visit [facility] to fill the prescribed medication and refill the inhaler. All further test results will be communicated to her as they become available. (2) Otitis media of right ear: Code(s): H66.91 - Otitis media, unspecified, right ear Qualifiers: Chronicity: acute Otitis media type: suppurative Recurrence: non-recurrent Spontaneous tympanic membrane rupture: without spontaneous rupture Qualified Code(s): H66.001 - Acute suppurative otitis media without spontaneous rupture of ear drum, right ear Plan: Acute Otitis Media: Prescription of amoxicillin, to be taken twice daily for seven days, was issued to treat the infection in the right ear. Patient was informed and verbally consented to the use of an ambient scribe for clinic note documentation during this visit Orders: Orders SARS-CoV2/FLU/RSV Today J06.9 - Acute upper respiratory infection, unspecified Medications: New amoxicillin 875 mg PO Q12H 14 tabs 0RF Coding Level of Care Code Est Pt Level 4 (84405) Diagnoses URI, acute J06.9 Non-recurrent acute suppurative otitis media of right ear without spontaneous rupture of tympanic membrane H66.001 Chronicity: acute Otitis media type: suppurative Recurrence: non-recurrent Spontaneous tympanic membrane rupture: without spontaneous rupture
[2024-03-12 11:30] VITALS: BP 120/80; PULSE 74; TEMP 36.6; O2SAT 97
== END 2024-03-12 11:50 | disposition home or self-care (01) ==
PROVIDERS: PCP Internal Medicine; Visit Provider Physician Assistant
DX: J06.9 Acute upper respiratory infection, unspecified (principal); H66.001 Acute suppurative otitis media without spontaneous rupture of ear drum, right ear; Z13.9 Encounter for screening, unspecified

== ENCOUNTER 2024-03-12 10:46 | Outpatient (REF) | payer MEDICARE, MEDICAID, SELFPAY ==
[2024-03-12 17:51] LABS: Influenza A PCR NEGATIVE (Negative); Influenza B PCR NEGATIVE (Negative); Resp Syncy Virus RNA Qual PCR POSITIVE (Negative); SARS COV2 PCR INHOUSE NEGATIVE (Negative)
== END 2024-03-12 10:47 | disposition home or self-care (01) ==
LOC: HO.LAB 10:46
PROVIDERS: PCP Internal Medicine; Visit Provider Physician Assistant
DX: J06.9 Acute upper respiratory infection, unspecified (principal); H66.001 Acute suppurative otitis media without spontaneous rupture of ear drum, right ear
CPT/HCPCS: 0241U; 87880; 99212

== ENCOUNTER 2024-03-18 13:41 | Outpatient (AMB) | payer MEDICARE, MEDICAID, SELFPAY ==
[2024-03-18 13:46] VITALS: BP 128/82; PULSE 88; TEMP 36.4; O2SAT 98; BMI 34.2
--- NOTE | 2024-03-18 13:46 | AM.OFFWIN_ITS ---
Intake Vital Signs 03/18/24 13:46 Height 5 ft 6 in Weight 212 lb BMI 34.2 BP 128/82 Blood Pressure Location Lt brachial Position Sitting Pulse 88 Pulse Source Pulse Oximeter Temp 97.5 F Temp Source Temporal Artery Scan Pulse Oximetry (%) 98 Oxygen Delivery Method Room Air Intake Visit Reasons: EP cough, congestion Intake Note: Pt presents to the office today for cough, and congestion x3 days. Patient Tobacco Use Status: Former Tobacco user Allergies mushroom Allergy (Mild, Verified 03/18/24 13:48) THROAT CLOSING HPI HPI Comments History of Present Illness Details History The patient is a 33-year-old female presenting with worsening ear pain and ongoing symptoms related to a previous positive test for Respiratory Syncytial Virus (RSV) infection. She initially presented on March 12 with sore throat and pain in both ears for five days and was diagnosed with acute otitis media, for which she was prescribed 7 days of amoxicillin, she has one day of meds left. Despite treatment, symptoms persisted, including pressure and bubbling in the ears, now primarily affecting the right ear, which commenced with an increase in symptoms on the previous day. The patient also continues to experience hot flashes and alternating temperatures, commonly associated with RSV infection, and notes improvement in symptoms when lying down, particularly regarding pressure alleviation. She reported contacting her pharmacy regarding the unavailability of her albuterol inhaler, as she has a history of asthma but was unable to obtain a refill. The patient is also on propranolol, an anxiety medication, which she uses selectively. Physical Exam General: Cooperative, healthy appearing, comfortable and no acute distress Orientation/consciousness: Patient oriented x3 Limitations: No limitations Head: Normal to inspection Ears: Hearing grossly normal bilaterally, external ears normal, right TM with small purulent effusion and bubbles, left TM normal Nose: Normal external nose present, Normal nares present and No nasal discharge present Face and sinus: Normal facial exam and Yes sinuses tender Mouth: Normal oral and palatal mucosa present and moist mucous membranes Throat: Yes tonsils normal, Yes uvula midline. Posterior oropharynx erythema Eyes: Appearance normal, both eyes and all related structures Neck: Normal visual inspection Respiratory: Clear to auscultation bilaterally. Normal respiratory effort, able to speak in complete sentences, no respiratory distress, not tachypneic, no tripod positioning and no use of accessory muscles Cardiovascular: Regular rate and rhythm. Normal S1 and S2 Skin: No rashes or lesions noted Neuro: Patient oriented x3 Extremities: Normal to inspection and Yes no clubbing, cyanosis or edema PFSH Medical History Morbid obesity Morbid obesity with BMI of 40.0-44.9, adult Cervical prolapse Constipation Adult general medical exam Yeast dermatitis Hx of abnormal cervical Pap smear Screen for sexually transmitted diseases Shortness of breath Encounter for observation for other suspected diseases and conditions ruled out Psoriasis Cervical cancer screening Smoking Insomnia ADHD Transaminitis Super-super obese Onychogryposis History of drug use History of peptic ulcer Morbid obesity with BMI of 45.0-49.9, adult Asthma Sciatica Low back pain Bipolar 1 disorder GERD (gastroesophageal reflux disease) Anxiety Depression PTSD (post-traumatic stress disorder) Surgical History S/P laparoscopic sleeve gastrectomy History of section H/O dilation and curettage H/O abdominal surgery Family History Father Chronic mental illness Hyperlipidemia HTN (hypertension) Mother Chronic mental illness Obesity Brother No problems noted. Brother No problems noted. Son ADHD Son ADHD Family/Other Substance use disorder Maternal Grandfather Colon cancer Social History (Updated 12/05/23 @ 13:38 by Sapna Amaya) Household Members: Family Housing: House Are you a primary plant health care technician to a significant other at home: No Do you presently have visiting nurse or other home services: No Alcohol intake: current Alcohol type: hard liquor Patient Tobacco Use Status: Former Tobacco user Tobacco use type: Cigarette Cigarettes Per Day: 7 e-Cigarette/Vaping Use: Currently Using Second Hand Smoke Exposure: No service: No Current occupational status: unemployed Female Reproductive History Menstrual Age of Menarche: 12 Review of Systems Const All systems reviewed & are unremarkable except as noted in HPI and below Physical Exam Vital Signs: Last Vital Signs Temp 97.5 F 03/18/24 13:46 Pulse 88 03/18/24 13:46 BP 128/82 03/18/24 13:46 Pulse Ox 98 03/18/24 13:46 Oxygen Delivery Method Room Air 03/18/24 13:46 BMI result Body Mass Index 34.2 Assessment & Plan Assessment & Plan (1) RSV (acute bronchiolitis due to respiratory syncytial virus): Code(s): J21.0 - Acute bronchiolitis due to respiratory syncytial virus Plan: Plan - Prescribe cefdinir 300 mg twice daily for 5 days to address unresolved symptoms of acute otitis media, as failed amoxicillin. - Prescribe a low dose of prednisone to help reduce head congestion and pressure, particularly when reclining, and to aid general recovery from the acute RSV symptoms. - Refill albuterol inhaler to address potential asthma exacerbation and management. - Advise wearing a mask at work to minimize the risk of transmitting RSV, especially when in proximity to vulnerable populations. - Yuriy work absence covering 3 more days to allow sufficient time for symptom improvement and recovery. - Monitor symptoms, particularly of ear infection and respiratory distress, with follow-up care as needed. Patient was informed and verbally consented to the use of an ambient scribe for clinic note documentation during this visit (2) Otitis media of right ear: Code(s): H66.91 - Otitis media, unspecified, right ear Qualifiers: Otitis media type: suppurative Chronicity: acute Recurrence: non- recurrent Spontaneous tympanic membrane rupture: without spontaneous rupture Qualified Code(s): H66.001 - Acute suppurative otitis media without spontaneous rupture of ear drum, right ear Plan: as above Medications: New cefdinir 300 mg PO Q12H 10 caps 0RF prednisone 20 mg PO QAM 5 tabs 0RF Refilled albuterol sulfate 90 mcg/actuation 2 puffs inhalation Q4-6H 30 days PRN 6.7 grams 2RF bronchospasm Coding Level of Care Code Est Pt Level 4 (29130) Diagnoses RSV (acute bronchiolitis due to respiratory syncytial virus) J21.0 Non-recurrent acute suppurative otitis media of right ear without spontaneous rupture of tympanic membrane H66.001 Otitis media type: suppurative Chronicity: acute Recurrence: non-recurrent Spontaneous tympanic membrane rupture: without spontaneous rupture
== END 2024-03-18 14:50 | disposition home or self-care (01) ==
PROVIDERS: PCP Internal Medicine; Visit Provider Physician Assistant
DX: J21.0 Acute bronchiolitis due to respiratory syncytial virus (principal); H66.001 Acute suppurative otitis media without spontaneous rupture of ear drum, right ear

== ENCOUNTER → 2024-03-18 13:41 | Outpatient (BNVA) | payer MEDICARE, MEDICAID, SELFPAY | PROVIDERS: PCP Internal Medicine; Visit Provider Physician Assistant | DX: J21.0 Acute bronchiolitis due to respiratory syncytial virus (principal); H66.001 Acute suppurative otitis media without spontaneous rupture of ear drum, right ear; R09.89 Other specified symptoms and signs involving the circulatory and respiratory systems | CPT/HCPCS: 99212 ==

== ENCOUNTER 2024-04-01 14:43 | Outpatient (AMB) | payer MEDICARE, MEDICAID, SELFPAY ==
--- NOTE | 2024-04-01 14:52 | AM.OFFVISNUR ---
Intake Visit Reasons: Vivitrol Injection Allergies mushroom Allergy (Mild, Verified 03/18/24 13:48) THROAT CLOSING Nursing Note Patient Presents for vivitrol Injection. Current Dose 380mg . Given in the with RG no noted or stated complications. Denies any issues with previous injection. Denies symptoms, and denies any break through cravings. Last appt with provider was last month , will follow up with RN in 4 weeks for injection. Will need to see provider for check in [facility] . Office Meds Vivitrol 380 mg intramuscular suspension,extended release Performing Provider: Ana Guadarrama CNP Performing Location: [facility] Administered by: Emma Doll RN on 04/01/24 14:54 Dose Route Admin Location Dispensed Lot Number Expiration Date [facility] Row Boss 380 mg IM 380 mg [id number] 08/31/26 [id number] [employer] Results AMB Test Urine AMB Test Urine Negative Last Edit by Emma Doll RN on 04/01/24 15:05 Assessment & Plan Assessment & Plan Orders: Orders AMB Naltrexone Injection Patient Supplied (NC) Today F10.20 - Alcohol dependence, uncomplicated AMB HCG Urine Test Today Z32.02 - Encounter for test, result negative
== END 2024-04-01 15:05 | disposition home or self-care (01) ==
LOC: HO.HCC 14:43
PROVIDERS: PCP Internal Medicine
DX: F10.20 Alcohol dependence, uncomplicated (principal); Z32.02 Encounter for pregnancy test, result negative

== ENCOUNTER → 2024-04-01 14:43 | Outpatient (BNVA) | payer MEDICARE, MEDICAID, SELFPAY | PROVIDERS: PCP Internal Medicine | DX: F10.20 Alcohol dependence, uncomplicated (principal); Z32.02 Encounter for pregnancy test, result negative; Z79.899 Other long term (current) drug therapy | CPT/HCPCS: 81025; 96372; J2315 ==

== ENCOUNTER 2024-04-30 08:49 | Outpatient (AMB) | payer MEDICARE, MEDICAID, SELFPAY ==
--- NOTE | 2024-04-30 08:58 | AM.OFFVISNUR ---
Vital Signs 04/30/24 09:30 BP 125/80 Blood Pressure Location Rt brachial Position Sitting Respiration 22 H Pulse 92 Pulse Source Pulse Oximeter Pulse Oximetry (%) 99 Oxygen Delivery Method Room Air Intake Visit Reasons: Vivitrol Injection Allergies mushroom Allergy (Mild, Verified 03/18/24 13:48) THROAT CLOSING Nursing Note Patient Presents for Vivitrol Injection. Current Dose 380mg . Given in the LG with no noted or stated complication. Denies any issues with previous injection. Denies symptoms, and denies any break through cravings. Will follow up with RN in 4 weeks for injection. Will need to see provider for check in, in June . Office Meds Vivitrol 380 mg intramuscular suspension,extended release Performing Provider: Ana Guadarrama CNP Performing Location: [facility] Administered by: Emma Doll RN on 04/30/24 09:31 Dose Route Admin Location Dispensed Lot Number Expiration Date [facility] Assembler 380 mg IM LG 380 mg [id number] 10/31/26 [id number] [employer] Assessment & Plan Assessment & Plan Orders: Orders AMB Naltrexone Injection Patient Supplied (NC) Today F10.20 - Alcohol dependence, uncomplicated AMB HCG Urine Test Today F10.20 - Alcohol dependence, uncomplicated Medications: New Vivitrol ER (naltrexone microspheres) 380 mg IM ONCE 1 ea 0RF NS F10.20 - Alcohol dependence, uncomplicated Coding
--- OUTSIDE RECORDS SUMMARY | 2024-04-30 09:10 | XMS_ITS | Encounter Summary ---
Author Organization [facility] Address [address] [place] [address] Phone Care Team Providers Care Insights Strategist Name Role Phone Mimi Starr MD Primary Care Provider Unavailabl e Encounter Details Date Type Department Care Team (Late st Contact Info) Description 11/17/2016 Conversion Encounter [facility] - [address] [address] Social History Tobacco Use Types Packs/Day Years Used Date Smoking Tobacco: Never Assessed Comments Unknown Sex and Gender Information Value Date Recorded Sex Assigned at Not on file Legal Sex Female 4:39 PM EDT Gender Identity Not on file Sexual Orientation Not on file documented as of this encounter Plan of Treatment Not on file documented as of this encounter Visit Diagnoses Not on filedocumented in this encounter Care Teams Insights Strategist Relationship Specialty Start Date End Date Mimi Starr MD PCP - General 11/11/16 documented as of this encounter
--- OUTSIDE RECORDS SUMMARY | 2024-04-30 09:10 | XMS_ITS | Clinical Summary ---
Author Organization [facility] Address [address] [place] [address] Phone Care Team Providers Care Inside Horticultural Specialty Grower Name Role Phone Mimi Starr MD Primary Care Provider Unavailabl e Immunizations Name Administration Dates Next Due DTP 11/22/1993, 0,1988,10/17,1988 HPV, Quadrivalent 05/25/2007 Hep B, ped/adol 07/26/2000,04/05/2000,01/19/2000 Hib (PRP-T) 01/26/1990 MMR 02/23/1994,08/21/1989 Meningococcal Conj (Menactra) MCV4P 05/25/2007 OPV 11/22/1993, 0,1988,08/04 Td (adult) (MBL), 2 Lf tetan us toxoid, PF, adsorbed 12/25/2000 Tdap 05/25/2007 Family History Relation Name Status Comments Brother Alive Brother: Alive and well, ADD Father Alive Father: GERD, a sthma, obesity Mother Alive Mother: Strabis mus/amblyopia, obesity Other No family histo ry of Diabetes mellitus, No family history of Seizure disorder, No family history of Migraines, No family history of Deafness, No family history of Developmental dislocation of hip, Family history of Strabismus/amblyopia, No family history of Elevated cholesterol, Family history of Obesity, Family history of Asthma, No family history of Sudden /[place] under age 55, No family history of Autism Social History Tobacco Use Types Packs/Day Years Used Date Smoking Tobacco: Never Assessed Comments Unknown Sex and Gender Information Value Date Recorded Sex Assigned at Not on file Legal Sex Female 4:39 PM EDT Gender Identity Not on file Sexual Orientation Not on file Plan of Treatment Health Maintenance Due Date Last Done Comments Varicella Vaccines (1 of 2 - 13+ 2-dose series) 2001 HPV Vaccines (2 - 3-dose series) 06/22/2007 05/25/2007 DTaP,Tdap,and Td Vaccines (7 - Td or Tdap) 05/25/2017 05/25/2007, 12/25/2000, 11/22/1993, Additional history exists Influenza Vaccines (#1) 2023 COVID-19 Vaccine ( season) 2023 HIB Vaccines Completed 01/26/1990 IPV Vaccines Completed 11/22/1993, 01/02, 1988, Additional history exists MMR Vaccines Completed 02/23/1994, 08/21/1989 Hepatitis B Vaccines Completed 07/26/2000, 04/05/2000, 01/19/2000 Meningococcal Vaccine Aged Out 05/25/2007 No gus belle eligible based on patient's age to complete this topic Hepatitis A Vaccines Aged Out No long er eligible based on patient's age to complete this topic Men B Vaccine Aged Out No longer elig ible based on patient's age to complete this topic Pneumococcal Vaccine Aged Out No long er eligible based on patient's age to complete this topic Care Teams Inside Horticultural Specialty Grower Relationship Specialty Start Date End Date Mimi Starr MD PCP - General 11/11/16
--- OUTSIDE RECORDS SUMMARY | 2024-04-30 09:10 | XMS_ITS | Encounter Summary ---
Author Organization [facility] Address [address] [place] [phone] Phone Care Team Providers Care Early Childhood Specialist Name Role Phone Mimi Starr MD Primary Care Provider Unavailabl e Encounter Details Date Type Department Care Team (Late st Contact Info) Description 11/09/2010 Documentation [facility] [place] [address] [place] [address] Family Medicine, Physician [facility] [address] [place], [place] [phone] Social History Tobacco Use Types Packs/Day Years [...] on filedocumented in this encounter Care Teams Early Childhood Specialist Relationship Specialty Start Date End Date Mimi Starr MD PCP - General 11/11/16 documented as of this encounter
[2024-04-30 09:30] VITALS: BP 125/80; PULSE 92; RESP 22; O2SAT 99
== END 2024-04-30 09:14 | disposition home or self-care (01) ==
PROVIDERS: PCP Internal Medicine
DX: F10.20 Alcohol dependence, uncomplicated (principal)

== ENCOUNTER → 2024-04-30 08:49 | Outpatient (BNVA) | payer MEDICARE, MEDICAID, SELFPAY | PROVIDERS: PCP Internal Medicine | DX: F10.20 Alcohol dependence, uncomplicated (principal) | CPT/HCPCS: 96372; J2315 ==

== ENCOUNTER 2024-05-28 08:53 | Outpatient (AMB) | payer MEDICARE, MEDICAID, SELFPAY ==
--- OUTSIDE RECORDS SUMMARY | 2024-05-28 09:33 | XMS_ITS | Encounter Summary ---
Author Organization [facility] Address [address] [place] [address] Phone Care Team Providers Care Threading Machine Setter Name Role Phone Mimi Starr MD Primary Care Provider Unavailabl e Encounter Details Date Type Department Care Team (Late st Contact Info) Description 11/17/2016 Conversion Encounter [facility] - [address] [address] Social History Tobacco Use Types Packs/Day Years [...] on filedocumented in this encounter Care Teams Threading Machine Setter Relationship Specialty Start Date End Date Mimi Starr MD PCP - General 11/11/16 documented as of this encounter
--- OUTSIDE RECORDS SUMMARY | 2024-05-28 09:33 | XMS_ITS | Clinical Summary ---
Author Organization [facility] Address [address] [place] [phone] Phone Care Team Providers Care Zinc Miner Blasting Name Role Phone Mimi Starr MD Primary Care Provider Unavailabl e Immunizations Immunization Administration Dates Next Due DTP 11/22/1993, 0,1988,10/17,1988 [...] of Asthma, No family history of Sudden /[place] under age 55, No family history of [...] age to complete this topic Care Teams Zinc Miner Blasting Relationship Specialty Start Date End Date Mimi Starr MD PCP - General 11/11/16
--- OUTSIDE RECORDS SUMMARY | 2024-05-28 09:34 | XMS_ITS | Encounter Summary ---
Author Organization [facility] Address [address] [place] [phone] Phone Care Team Providers Care Crnp Name Role Phone Mimi Starr MD Primary Care Provider Unavailabl e Encounter Details Date Type Department Care Team (Late st Contact Info) Description 11/09/[address] [facility] [place] Family Medicine [address] [place] [address] Family Medicine, Physician [facility] [address] [place], [place] [phone] Social History Tobacco Use Types Packs/Day Years [...] on filedocumented in this encounter Care Teams Crnp Relationship Specialty Start Date End Date Mimi Starr MD PCP - General 11/11/16 documented as of this encounter
--- NOTE | 2024-05-28 10:28 | AM.OFFVISNUR ---
Vital Signs 05/28/24 14:59 BP 130/80 Blood Pressure Location Rt brachial Position Sitting Respiration 19 Pulse 98 Pulse Oximetry (%) 99 Intake Visit Reasons: Vivitrol Injection Allergies mushroom Allergy (Mild, Verified 03/18/24 13:48) THROAT CLOSING Office Meds Vivitrol 380 mg intramuscular suspension,extended release Performing Provider: Ana Guadarrama CNP Performing Location: [facility] Administered by: Emma Doll RN on 05/30/24 16:33 Dose Route Admin Location Dispensed Lot Number Expiration Date [facility] Bottom Turning Lathe Turner 380 mg IM RG 380 mg [id number] 08/31/26 [id number] [employer] Assessment & Plan Assessment & Plan Orders: Orders AMB Naltrexone Injection Patient Supplied (NC) 05/28/24 F10.20 - Alcohol dependence, uncomplicated Medications: New Vivitrol ER (naltrexone microspheres) 380 mg IM ONCE 1 ea 0RF NS F10.20 - Alcohol dependence, uncomplicated Coding
[2024-05-28 14:59] VITALS: BP 130/80; PULSE 98; RESP 19; O2SAT 99
== END 2024-05-28 09:22 | disposition home or self-care (01) ==
PROVIDERS: PCP Internal Medicine
DX: F10.20 Alcohol dependence, uncomplicated (principal)

== ENCOUNTER → 2024-05-28 08:53 | Outpatient (BNVA) | payer MEDICARE, MEDICAID, SELFPAY | PROVIDERS: PCP Internal Medicine | DX: F10.20 Alcohol dependence, uncomplicated (principal) | CPT/HCPCS: 96372; J2315 ==

== ENCOUNTER → 2024-06-25 09:31 | Outpatient (AMB) | payer MEDICARE, MEDICAID, SELFPAY ==
--- NOTE | 2024-06-25 09:01 | AM.OFFVISNUR ---
Vital Signs 06/25/24 09:09 BP 128/62 Blood Pressure Location Rt brachial Position Sitting Respiration 19 Pulse 88 Pulse Source Pulse Oximeter Intake Visit Reasons: Vivitrol Injection Allergies mushroom Allergy (Mild, Verified 03/18/24 13:48) THROAT CLOSING Nursing Note Patient Presents for vivitrol Injection. Current Dose 380mg . Given in the LG with no noted or stated complications. Denies any issues with previous injection. Denies symptoms, and denies any break through cravings. Will follow up with RN in 4 weeks for injection. Will need to see provider for check in August . Office Meds Vivitrol 380 mg intramuscular suspension,extended release Performing Provider: Ana Guadarrama CNP Performing Location: [facility] Administered by: Emma Doll RN on 06/25/24 09:06 Dose Route Admin Location Dispensed Lot Number Expiration Date [facility] Classics Professor 380 mg IM LG 380 mg [id number] 12/31/26 28438-886-74 Flashnotes Assessment & Plan Assessment & Plan Orders: Orders AMB Naltrexone Injection - Practice Supplied Today F10.20 - Alcohol dependence, uncomplicated Medications: New Vivitrol ER (naltrexone microspheres) 380 mg IM ONCE 1 ea 0RF NS F10.20 - Alcohol dependence, uncomplicated Coding
[2024-06-25 09:09] VITALS: BP 128/62; PULSE 88; RESP 19
--- OUTSIDE RECORDS SUMMARY | 2024-06-25 10:40 | XMS_ITS | Encounter Summary ---
Author Organization [facility] Address [address] [place] [address] Phone Care Team Providers Care Drama Professor Name Role Phone Mimi Starr MD Primary Care Provider Unavailabl e Encounter Details Date Type Department Care Team (Late st Contact Info) Description 11/17/2016 Conversion Encounter [facility] - [address] [address] Social History Tobacco Use Types Packs/Day Years [...] on filedocumented in this encounter Care Teams Drama Professor Relationship Specialty Start Date End Date Mimi Starr MD PCP - General 11/11/16 documented as of this encounter
--- OUTSIDE RECORDS SUMMARY | 2024-06-25 10:40 | XMS_ITS | Encounter Summary ---
Author Organization [facility] Address [address] [place] [address] Phone Care Team Providers Care Casting Associate Name Role Phone Mimi Starr MD Primary Care Provider Unavailabl e Encounter Details Date Type Department Care Team (Late st Contact Info) Description 11/09/2010 Documentation [facility] Family Medicine [address] [place] [address] Family Medicine, Physician [facility] [address] [place], [place] [phone] Social History Tobacco Use Types Packs/Day Years [...] on filedocumented in this encounter Care Teams Casting Associate Relationship Specialty Start Date End Date Mimi Starr MD PCP - General 11/11/16 documented as of this encounter
--- OUTSIDE RECORDS SUMMARY | 2024-06-25 10:40 | XMS_ITS | Clinical Summary ---
Author Organization [facility] Address [address] [place] [address] Phone Care Team Providers Care Vp Digital Marketing Social Media And Crm Name Role Phone Mimi Starr MD Primary [...] of Asthma, No family history of Sudden /[place] under age 55, No family history of [...] age to complete this topic Care Teams Vp Digital Marketing Social Media And Crm Relationship Specialty Start Date End Date Mimi Starr MD PCP - General 11/11/16
== END ==
LOC: HO.HCC 09:31
PROVIDERS: PCP Internal Medicine
DX: F10.20 Alcohol dependence, uncomplicated (principal)

== ENCOUNTER → 2024-06-25 09:31 | Outpatient (BNVA) | payer MEDICARE, MEDICAID, SELFPAY | PROVIDERS: PCP Internal Medicine | DX: F10.20 Alcohol dependence, uncomplicated (principal); Z51.81 Encounter for therapeutic drug level monitoring; Z79.899 Other long term (current) drug therapy | CPT/HCPCS: 96372; J2315 ==

== ENCOUNTER 2024-07-23 08:37 | Outpatient (AMB) | payer MEDICARE, MEDICAID, SELFPAY ==
--- OUTSIDE RECORDS SUMMARY | 2024-07-23 08:59 | XMS_ITS | Encounter Summary ---
Author Organization [facility] Address [address] [place] [address] Phone Care Team Providers Care Portuguese Tutor Name Role Phone Mimi Starr MD Primary Care Provider Unavailabl e Encounter Details Date Type Department Care Team (Late st Contact Info) Description 11/09/2010 Documentation [facility] Family Medicine [address] [place] [address] Family Medicine, Physician [facility] [address] [place], [place] [phone] Social History Tobacco Use Types Packs/Day Years [...] on filedocumented in this encounter Care Teams Portuguese Tutor Relationship Specialty Start Date End Date Mimi Starr MD PCP - General 11/11/16 documented as of this encounter
--- OUTSIDE RECORDS SUMMARY | 2024-07-23 08:59 | XMS_ITS | Encounter Summary ---
Author Organization [facility] Address [address] [place] [address] Phone Care Team Providers Care Stove Carriage Operator Name Role Phone Mimi Starr MD Primary Care Provider Unavailabl e Encounter Details Date Type Department Care Team (Late st Contact Info) Description 11/17/2016 Conversion Encounter [facility] - [address] [address] Social History Tobacco Use Types Packs/Day Years [...] on filedocumented in this encounter Care Teams Stove Carriage Operator Relationship Specialty Start Date End Date Mimi Starr MD PCP - General 11/11/16 documented as of this encounter
--- OUTSIDE RECORDS SUMMARY | 2024-07-23 08:59 | XMS_ITS | Clinical Summary ---
Author Organization [facility] Address [address] [place] [address] Phone Care Team Providers Care Manager Foreign Name Role Phone Mimi Starr MD Primary [...] of Asthma, No family history of Sudden /[place] under age 55, No family history of [...] age to complete this topic Care Teams Manager Foreign Relationship Specialty Start Date End Date Mimi Starr MD PCP - General 11/11/16
[2024-07-23 09:56] VITALS: BP 132/84; PULSE 96; RESP 16; O2SAT 100
--- NOTE | 2024-07-23 09:56 | AM.OFFVISNUR ---
Vital Signs 07/23/24 09:56 BP 132/84 Blood Pressure Location Rt brachial Position Sitting Respiration 16 Pulse 96 Pulse Source Pulse Oximeter Pulse Oximetry (%) 100 Oxygen Delivery Method Room Air Intake Visit Reasons: Injection Allergies mushroom Allergy (Mild, Verified 03/18/24 13:48) THROAT CLOSING Nursing Note Yolette presents today for four week AUD check in and Vivitrol injection. Yolette is A&Ox4, pleasant and cooperative with calm and appropriate affect. Yolette reports feeling stable in recovery and is proud to have just received her seven month chip in AA. Yolette sees a therapist through [facility] and reports going to meetings at least once a day- 6 days a week and is currently attending the [employer] [facility] [employer] ([employer]R) Program- which is a program for individuals with LEIGH to create a recovery plan unique to their specific needs and connects members to various recovery supports. She is currently unemployed but hopes to have employment by the fall. Office Meds Vivitrol 380 mg intramuscular suspension,extended release Performing Provider: Laura Whiting MD Performing Location: [facility] [[email or web address]] Administered by: Joyce Meek RN on 07/23/24 09:25 Dose Route Admin Location Dispensed Lot Number Expiration Date NDC Manager Transportation Planning 380 mg IM RG 380 mg [id number] 03/02/27 47012-872-24 [employer] Comments: Patient present for 4 week AUD check in and Vivitrol injection; patient denies concerns with previous injection and tolerated injection well. Educated on signs and symptoms of infection, encouraged to call [facility] with any questions or concerns, Pt verbalized understanding. Results AMB Test Urine AMB Test Urine Negative Last Edit by Joyce Meek RN on 07/23/24 10:44 AMB 14 Panel Urine Drug Screen Urine Marijuana (THC) Negative Last Edit by Joyce Meek RN on 07/23/24 10:48 Urine Cocaine Negative Last Edit by Joyce Meek RN on 07/23/24 10:48 Urine Morphine Negative Last Edit by Joyce Meek RN on 07/23/24 10:48 Urine Methamphetamine Negative Last Edit by Joyce Meek RN on 07/23/24 10:48 Urine Amphetamine Positive Last Edit by Joyce Meek RN on 07/23/24 10:48 Urine Benzodiazepine Negative Last Edit by Joyce Meek RN on 07/23/24 10:48 Urine Barbiturates Negative Last Edit by Joyce Meek RN on 07/23/24 10:48 Urine Methadone Negative Last Edit by Joyce Meek RN on 07/23/24 10:48 Urine Buprenorphine Negative Last Edit by Joyce Meek RN on 07/23/24 10:48 Urine Tricyclic Antidepressant Negative Last Edit by Joyce Meek RN on 07/23/24 10:48 Urine MDMA Negative Last Edit by Joyce Meek RN on 07/23/24 10:48 Urine Oxycodone Negative Last Edit by Joyce Meek RN on 07/23/24 10:48 Urine Phencyclidine Negative Last Edit by Joyce Meek RN on 07/23/24 10:48 Urine Propoxyphene Negative Last Edit by Joyce Meek RN on 07/23/24 10:48 Assessment & Plan Assessment & Plan Orders: Orders AMB 14 Panel Urine Drug Screen Today F10.20 - Alcohol dependence, uncomplicated AMB HCG Urine Test Today F10.20 - Alcohol dependence, uncomplicated AMB Naltrexone Injection Patient Supplied (NC) Today F10.20 - Alcohol dependence, uncomplicated Coding
== END 2024-07-23 09:25 | disposition home or self-care (01) ==
LOC: HO.HCC 08:38
PROVIDERS: PCP Internal Medicine
DX: F10.20 Alcohol dependence, uncomplicated (principal)

== ENCOUNTER → 2024-07-23 08:37 | Outpatient (BNVA) | payer MEDICARE, MEDICAID, SELFPAY | PROVIDERS: PCP Internal Medicine | DX: F10.20 Alcohol dependence, uncomplicated (principal) | CPT/HCPCS: 80307; 81025; 96372; J2315 ==

== ENCOUNTER 2024-08-05 12:10 | Outpatient (AMB) | payer MEDICARE, MEDICAID, SELFPAY ==
--- NOTE | 2024-08-05 13:35 | AM.OFFWIN_ITS ---
Intake Vital Signs 08/05/24 13:40 Weight 237 lb BP 120/84 Blood Pressure Location Lt brachial Position Sitting Pulse 89 Pulse Source Pulse Oximeter Temp 98.3 F Temp Source Oral Pulse Oximetry (%) 97 Oxygen Delivery Method Room Air Intake Visit Reasons: EP Throat pain, respiratory Intake Note: Patient here for sore throat and body aches. her son tested positive for strep over the weekend. Patient Tobacco Use Status: Former Tobacco user Allergies mushroom Allergy (Mild, Verified 08/05/24 13:41) THROAT CLOSING Do you need a note to return to daycare/school/sports/work: No HPI HPI Comments History of Present Illness Details Patient presents to the walk-in stay with complaints of sore throat for last 3 days Son recently diagnosed with strep throat Pain with swallowing Tolerating p.o., denies nausea, vomiting Denies headaches, fevers, chest pain, syncope, dizziness, weakness or difficulty managing secretions PFSH Medical History Morbid obesity Morbid obesity with BMI of 40.0-44.9, adult Cervical prolapse Constipation Adult general medical exam Yeast dermatitis Hx of abnormal cervical Pap smear Screen for sexually transmitted diseases Shortness of breath Encounter for observation for other suspected diseases and conditions ruled out Psoriasis Cervical cancer screening Smoking Insomnia ADHD Transaminitis Super-super obese Onychogryposis History of drug use History of peptic ulcer Morbid obesity with BMI of 45.0-49.9, adult Asthma Sciatica Low back pain Bipolar 1 disorder GERD (gastroesophageal reflux disease) Anxiety Depression PTSD (post-traumatic stress disorder) Surgical History S/P laparoscopic sleeve gastrectomy History of section H/O dilation and curettage H/O abdominal surgery Family History Father Chronic mental illness Hyperlipidemia HTN (hypertension) Mother Chronic mental illness Obesity Brother No problems noted. Brother No problems noted. Son ADHD Son ADHD Family/Other Substance use disorder Maternal Grandfather Colon cancer Social History (Updated 12/05/23 @ 13:38 by Sapna Amaya) Household Members: Family Housing: House Are you a primary out of school hours care worker to a significant other at home: No Do you presently have visiting nurse or other home services: No Alcohol intake: current Alcohol type: hard liquor Patient Tobacco Use Status: Former Tobacco user Tobacco use type: Cigarette Cigarettes Per Day: 7 e-Cigarette/Vaping Use: Currently Using Second Hand Smoke Exposure: No service: No Current occupational status: unemployed Female Reproductive History Menstrual Age of Menarche: 12 Review of Systems Const All systems reviewed & are unremarkable except as noted in HPI and below Physical Exam Vital Signs: Last Vital Signs Temp 98.3 F 08/05/24 13:40 Pulse 89 08/05/24 13:40 BP 120/84 08/05/24 13:40 Pulse Ox 97 08/05/24 13:40 Oxygen Delivery Method Room Air 08/05/24 13:40 General: awake, alert, oriented. Answers questions appropriately. Fully engaged in examination. Skin: warm, dry, intact HEENT: TMs intact bilaterally, no redness. Posterior pharynx erythematous without exudate bilaterally. Moist oral mucosa. Sclera without icterus or injection. Cardiac: External chest normal in appearance. Respiratory: LSCTAB. Resp even and unlabored. Speaking full sentences without difficulty. Abdomen: without gross distension. Neurological: Oriented to person, place, time and situation. Thought process intact. Psychiatric: Appropriate mood and affect. Good judgment and insight. Results AMB Rapid Strep AMB Rapid Strep Negative Last Edit by BRENDA Marina on 08/05/24 14:16 Results Reviewed Results Reviewed: Rapid strep negative Assessment & Plan Assessment & Plan (1) Pharyngitis: Code(s): J02.9 - Acute pharyngitis, unspecified Plan Patient presented to the walk-in today with complaints of sore throat Rapid strep negative, will treat empirically with antibiotics given patient is symptomatic and her son tested positive for strep 2 days ago. Amoxicillin 500 mg twice daily for 10 days Rest, drink plenty of fluids. Tylenol or Motrin as needed Discussed preventative measures including no sharing of drinks, utensils or kissing. Dispose of tooth brush every 3 days and at completion of the antibiotics. All questions and concerns were answered, patient agrees with plan Follow with primary care or return to the clinic for any new or worsening symptoms Orders: Orders AMB Rapid Strep Screen Today Z13.9 - Encounter for screening, unspecified Medications: New amoxicillin 500 mg PO BID 20 caps 0RF Coding Level of Care Code Est Pt Level 3 (73191) Diagnoses Pharyngitis J02.9
[2024-08-05 13:40] VITALS: BP 120/84; PULSE 89; TEMP 36.8; O2SAT 97
--- OUTSIDE RECORDS SUMMARY | 2024-08-05 13:43 | XMS_ITS | Clinical Summary ---
Author Organization [facility] Address [address] [place] [address] Phone Care Team Providers Care Road Service Locksmith Name Role Phone Mimi Starr MD Primary [...] age to complete this topic Care Teams Road Service Locksmith Relationship Specialty Start Date End Date Mimi Starr MD PCP - General 11/11/16
--- OUTSIDE RECORDS SUMMARY | 2024-08-05 13:43 | XMS_ITS | Encounter Summary ---
Author Organization [facility] Address [address] [place] [address] Phone Care Team Providers Care Reptile Keeper Name Role Phone Mimi Starr MD Primary Care Provider Unavailabl e Encounter Details Date Type Department Care Team (Late st Contact Info) Description 11/17/2016 Conversion Encounter [facility] - [address] [address] Social History Tobacco Use Types Packs/Day Years [...] on filedocumented in this encounter Care Teams Reptile Keeper Relationship Specialty Start Date End Date Mimi Starr MD PCP - General 11/11/16 documented as of this encounter
--- OUTSIDE RECORDS SUMMARY | 2024-08-05 13:43 | XMS_ITS | Encounter Summary ---
Author Organization [facility] Address [address] [place] [address] Phone Care Team Providers Care Diet Assistant Name Role Phone Mimi Starr MD Primary Care Provider Unavailabl e Encounter Details Date Type Department Care Team (Late st Contact Info) Description 11/09/2010 Documentation [facility] Family Medicine [address] [place] [address] Family Medicine, Physician [facility] [address] [place], [place] [phone] Social History Tobacco Use Types Packs/Day Years [...] on filedocumented in this encounter Care Teams Diet Assistant Relationship Specialty Start Date End Date Mimi Starr MD PCP - General 11/11/16 documented as of this encounter
== END 2024-08-05 14:48 | disposition home or self-care (01) ==
PROVIDERS: PCP Internal Medicine; Visit Provider Registered Nurse Emergency
DX: J02.9 Acute pharyngitis, unspecified (principal); Z13.9 Encounter for screening, unspecified
CPT/HCPCS: 99213

== ENCOUNTER → 2024-08-05 12:10 | Outpatient (BNVA) | payer MEDICARE, MEDICAID, SELFPAY | PROVIDERS: PCP Internal Medicine; Visit Provider Registered Nurse Emergency | DX: J02.9 Acute pharyngitis, unspecified (principal) | CPT/HCPCS: 87880; 99212 ==

== ENCOUNTER 2024-08-14 09:55 | Outpatient (AMB) | payer MEDICARE, MEDICAID, SELFPAY ==
--- NOTE | 2024-08-14 09:55 | A.OFFVIS_ITS ---
Intake Visit Reasons: control consult Intake Note: Per patient, no issues with Mirena but is planning on getting . Computer Systems Information Director: Computer Systems Information Director Present (Arcelia) Accompanied by: Self / Same As Patient Allergies mushroom Allergy (Mild, Verified 08/14/24 10:05) THROAT CLOSING Medication List - Last Reconciled 08/14/24 by Yoli Rivera CNM albuterol sulfate 90 mcg/actuation 2 puffs inhalation Q4-6H PRN 30 days amoxicillin 500 mg PO BID benzoyl peroxide 10% (Acne Control (benzoyl peroxide)) 1 appl topical DAILY clindamycin phosphate 1% 1 appl topical DAILY fluticasone propionate 50 mcg/actuation 2 sprays intranasal DAILY levonorgestrel (Mirena) intrauterine lisdexamfetamine 60 mg PO QAM melatonin 5 mg PO BEDTIME PRN naltrexone microspheres ER (Vivitrol) 380 mg IM Q4W pantoprazole 40 mg PO DAILY propranolol 10 mg PO BID topiramate 50 mg PO BID tretinoin 0.025% appl topical BEDTIME triamcinolone acetonide 0.1% 1 appl topical BID-TID ustekinumab (Stelara) 90 mg subcut Q12W Ventolin HFA 90 mcg/actuation (albuterol sulfate) 2 puffs inhalation Q6H PRN 30 days NS Is last menstrual period known: Yes Last menstrual period: 08/09/24 (Still present ) Post menopausal: No Patient : No HPI HPI control consult: Details: To discuss taking out her Mirena. She is sober and cleaned from all substances and doing very well and feels good and healthy and is stable relationship with a partner that she would like to have a baby with. This is her 3rd Mirena she has 2 children 1 1 vaginally 20 years ago in the last 1 born by she did have a postoperative infection and needed debridement with a VAC device placed and was in the hospital for quite a while with that 8 years ago. She has been getting regular periods with this Mirena and they are getting a little heavier. [facility] Medical History Morbid obesity Morbid obesity with BMI of 40.0-44.9, adult Cervical prolapse Constipation Adult general medical exam Yeast dermatitis Hx of abnormal cervical Pap smear Screen for sexually transmitted diseases Shortness of breath Encounter for observation for other suspected diseases and conditions ruled out Psoriasis Cervical cancer screening Smoking Insomnia ADHD Transaminitis Super-super obese Onychogryposis History of drug use History of peptic ulcer Morbid obesity with BMI of 45.0-49.9, adult Asthma Sciatica Low back pain Bipolar 1 disorder GERD (gastroesophageal reflux disease) Anxiety Depression PTSD (post-traumatic stress disorder) Surgical History S/P laparoscopic sleeve gastrectomy History of section H/O dilation and curettage H/O abdominal surgery Family History Father Chronic mental illness Hyperlipidemia HTN (hypertension) Mother Chronic mental illness Obesity Brother No problems noted. Brother No problems noted. Son ADHD Son ADHD Family/Other Substance use disorder Maternal Grandfather Colon cancer Social History Household Members: Family Housing: House Are you a primary care manager cna to a significant other at home: No Do you presently have visiting nurse or other home services: No Alcohol intake: current Alcohol type: hard liquor Patient Tobacco Use Status: Former Tobacco user Tobacco use type: Cigarette Cigarettes Per Day: 7 e-Cigarette/Vaping Use: Currently Using Second Hand Smoke Exposure: No Patient : No service: No Current occupational status: unemployed Female Reproductive History Menstrual Age of Menarche: 12 Date of last menstrual period: 08/09/24 (Still present ) Total pregnancies: 4 Full term: 2 Ab spontaneous: 2 Date of last pap smear: 01/31/23 (negative pap smear, negative hpv ) History of abnormal pap smear: Yes (+HPV ASCUS 2008, CIN1 2007,2006) Assessment & Plan Assessment & Plan (1) Presence of 52 mg levonorgestrel-releasing intrauterine device (IUD): Comment: Has been in for 6 years. menses have returned. very much needs reliable contraception; to be replaced this week, Increased pain at deployment of Mirena I stat ultrasound requested to double check position now please. [id number]-[id number] is correctly situated in uterus per u/s... Code(s): Z97.5 - Presence of (intrauterine) contraceptive device Category: Social Hx (2) Patient desires : Code(s): Z31.9 - Encounter for procreative management, unspecified Category: Medical (3) History of substance dependence: Comment: In recovery now and doing very well. 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 I recommend starting vitamins if she has not already started. Discussed that these risks or go up with time. They are much more increased if somebody has any pre-existing conditions. Reviewed her history how well she is doing her supports her readiness to have another child her concern about family history of early menopause and feeling he r biological clock taking. Reviewed removal of the Mirena and return to fertility and how to document and keep track of her cycles and any potential ovulation so that she does not waste any time in case she needs to seek fertility assistance. Also discussed that she would probably best be served by seeking care and care around delivery from the start at [facility]. I asked her to meet with her other medication provider's and discuss alterations in the meds that she is on according to what it would be appropriate before unprotected sex she can go ahead and schedule a Mirena removal and annual exam if she is due and also she can start the vitamins whenever she wants we also discussed nutrition she is going back to her shakes and protein bars and she has lost 5 lb of the 40 that she had regained so she feels she is back on track again. Schedule Mirena removal and annual exam whenever she is due Patient to check with her other medication provider's about planning Medications: New PNV,calcium [id number] acid 27 mg iron- 1 mg ( Vitamins Plus Low Iron) 1 tab PO DAILY 100 tabs 1RF Coding Level of Care Code Est Pt Level 3 (44998) Diagnoses Presence of 52 mg levonorgestrel-releasing intrauterine device (IUD) Z97.5 Patient desires Z31.9 History of substance dependence F19.21
--- OUTSIDE RECORDS SUMMARY | 2024-08-14 10:44 | XMS_ITS | Encounter Summary ---
Author Organization [facility] Address [address] [place] [address] Phone Care Team Providers Care Armature Coil Winder Name Role Phone Mimi Starr MD Primary Care Provider Unavailabl e Encounter Details Date Type Department Care Team (Late st Contact Info) Description 11/09/2010 Documentation [facility] [place] Medicine [address] [place] [address] Family Medicine, Physician [facility] [address] [place], [place] [phone] Social History Tobacco Use Types Packs/Day Years [...] on filedocumented in this encounter Care Teams Armature Coil Winder Relationship Specialty Start Date End Date Mimi Starr MD PCP - General 11/11/16 documented as of this encounter
--- OUTSIDE RECORDS SUMMARY | 2024-08-14 10:44 | XMS_ITS | Encounter Summary ---
Author Organization [facility] Address [address] [place] [address] Phone Care Team Providers Care Registered Appraiser Name Role Phone Mimi Starr MD Primary Care Provider Unavailabl e Encounter Details Date Type Department Care Team (Late st Contact Info) Description 11/17/2016 Conversion Encounter [facility] - [address] [address] Social History Tobacco Use Types Packs/Day Years [...] on filedocumented in this encounter Care Teams Registered Appraiser Relationship Specialty Start Date End Date Mimi Starr MD PCP - General 11/11/16 documented as of this encounter
--- OUTSIDE RECORDS SUMMARY | 2024-08-14 10:44 | XMS_ITS | Clinical Summary ---
Author Organization [facility] Address [address] [place] [phone] Phone Care Team Providers Care Cuprous Chloride Helper Name Role Phone Mimi Starr MD Primary [...] of Asthma, No family history of Sudden /[place] under age 55, No family history of [...] age to complete this topic Care Teams Cuprous Chloride Helper Relationship Specialty Start Date End Date Mimi Starr MD PCP - General 11/11/16
== END 2024-08-14 13:41 | disposition home or self-care (01) ==
LOC: HO.HWSM 09:55
PROVIDERS: PCP Internal Medicine; Visit Provider Advanced Practice Midwife
DX: Z97.5 Presence of (intrauterine) contraceptive device (principal); Z31.9 Encounter for procreative management, unspecified; F19.21 Other psychoactive substance dependence, in remission
CPT/HCPCS: 99213

== ENCOUNTER → 2024-08-14 09:55 | Outpatient (BNVA) | payer MEDICARE, MEDICAID, SELFPAY | PROVIDERS: PCP Internal Medicine; Visit Provider Advanced Practice Midwife | DX: F19.21 Other psychoactive substance dependence, in remission (principal); Z97.5 Presence of (intrauterine) contraceptive device; Z31.9 Encounter for procreative management, unspecified | CPT/HCPCS: 99212 ==

== ENCOUNTER 2024-08-23 09:48 | Outpatient (AMB) | payer MEDICARE, MEDICAID, SELFPAY ==
--- NOTE | 2024-08-23 09:58 | MHC.OFFVIS ---
Vital Signs 08/23/24 10:11 Pulse 90 Pulse Source Pulse Oximeter Pulse Oximetry (%) 99 Oxygen Delivery Method Room Air Intake Visit Reasons: MAT Injection Allergies mushroom Allergy (Mild, Verified 08/23/24 10:50) THROAT CLOSING HPI HPI MAT Injection: Details: She has been on Vivitrol shot for AUD and has been doing well with it. She has not drank alcohol and has no cravings. However she is going upstairs to get IUD out today with Dr Boyer and she wants to conceive now. She has a 20 year old and and eight year old child. She is scheduled for shot today and it is available [facility] Medical History Morbid obesity Morbid obesity with BMI of 40.0-44.9, adult Cervical prolapse Constipation Adult general medical exam Yeast dermatitis Hx of abnormal cervical Pap smear Screen for sexually transmitted diseases Shortness of breath Encounter for observation for other suspected diseases and conditions ruled out Psoriasis Cervical cancer screening Smoking Insomnia ADHD Transaminitis Super-super obese Onychogryposis History of drug use History of peptic ulcer Morbid obesity with BMI of 45.0-49.9, adult Asthma Sciatica Low back pain Bipolar 1 disorder GERD (gastroesophageal reflux disease) Anxiety Depression PTSD (post-traumatic stress disorder) Surgical History S/P laparoscopic sleeve gastrectomy History of section H/O dilation and curettage H/O abdominal surgery Family History Father Chronic mental illness Hyperlipidemia HTN (hypertension) Mother Chronic mental illness Obesity Brother No problems noted. Brother No problems noted. Son ADHD Son ADHD Family/Other Substance use disorder Maternal Grandfather Colon cancer Social History Household Members: Family Housing: House Are you a primary primary care coordinator to a significant other at home: No Do you presently have visiting nurse or other home services: No Alcohol intake: current Alcohol type: hard liquor Patient Tobacco Use Status: Former Tobacco user Tobacco use type: Cigarette Cigarettes Per Day: 7 e-Cigarette/Vaping Use: Currently Using Second Hand Smoke Exposure: No service: No Current occupational status: unemployed Female Reproductive History Menstrual Age of Menarche: 12 Review of Systems Const All systems reviewed & are unremarkable except as noted in HPI and below Physical Exam Vital Signs: Last Vital Signs Pulse 90 08/23/24 10:11 Pulse Ox 99 08/23/24 10:11 Oxygen Delivery Method Room Air 08/23/24 10:11 Const General: cooperative Results AMB Test Urine AMB Test Urine Negative Last Edit by Jaime Castro CMA on 08/23/24 10:09 AMB 14 Panel Urine Drug Screen Urine Marijuana (THC) Negative Last Edit by Jaime Castro CMA on 08/23/24 10:10 Urine Cocaine Negative Last Edit by Jaime Castro CMA on 08/23/24 10:10 Urine Morphine Negative Last Edit by Jaime Castro CMA on 08/23/24 10:10 Urine Methamphetamine Negative Last Edit by Jaime Castro CMA on 08/23/24 10:10 Urine Amphetamine Positive Last Edit by Jaime Castro CMA on 08/23/24 10:10 Urine Benzodiazepine Negative Last Edit by Jaime Castro CMA on 08/23/24 10:10 Urine Barbiturates Negative Last Edit by Jaime Castro CMA on 08/23/24 10:10 Urine Methadone Negative Last Edit by Jaime Castro CMA on 08/23/24 10:10 Urine Buprenorphine Negative Last Edit by Jaime Castro CMA on 08/23/24 10:10 Urine Tricyclic Antidepressant Negative Last Edit by Jaime Castro CMA on 08/23/24 10:10 Urine MDMA Negative Last Edit by Jaime Castro CMA on 08/23/24 10:10 Urine Oxycodone Negative Last Edit by Jaime Castro CMA on 08/23/24 10:10 Urine Phencyclidine Negative Last Edit by Jaime Castro CMA on 08/23/24 10:10 Urine Propoxyphene Negative Last Edit by Jaime Castro CMA on 08/23/24 10:10 AMB Test Urine AMB Test Urine Negative Last Edit by Madeline Obrien CMA on 08/23/24 11:10 Results Reviewed Results Reviewed: Laboratory Last Values Tst Clinic Negative 08/23/24 10:00 POC Urine Buprenorphine Negative 08/23/24 10:00 POC Urine Morphine Negative 08/23/24 10:00 POC Urine Oxycodone Negative 08/23/24 10:00 POC Urine Methadone Negative 08/23/24 10:00 POC Urine Propoxyphene Negative 08/23/24 10:00 POC Urine Barbiturates Negative 08/23/24 10:00 POC U Tricyclic Antidpr Negative 08/23/24 10:00 POC Urine PCP Negative 08/23/24 10:00 POC Ur Amphetamines Positive 08/23/24 10:00 POC Ur Methamphetamine Negative 08/23/24 10:00 POC Urine MDMA Negative 08/23/24 10:00 POC Ur Benzodiazepine Negative 08/23/24 10:00 POC Urine Cocaine Negative 08/23/24 10:00 POC Ur Marijuana (THC) Negative 08/23/24 10:00 Assessment & Plan Assessment & Plan (1) History of substance dependence: Comment: She is doing well but wants to conceive She is actually getting IUD out now. Code(s): F19.21 - Other psychoactive substance dependence, in remission Category: Medical Plan: Would not give further Vivitrol due to Category C risk during . Would give counseling support Call as needed. Can see Caitie if counseling done here Orders: Orders AMB 14 Panel Urine Drug Screen Today Z51.81 - Encounter for therapeutic drug level monitoring AMB HCG Urine Test Today Z32.02 - Encounter for test, result negative Coding Level of Care Code Est Pt Level 3 (19027) Diagnoses History of substance dependence F19.21
--- OUTSIDE RECORDS SUMMARY | 2024-08-23 10:04 | XMS_ITS | Clinical Summary ---
Author Organization [facility] Address [address] [place] [id number] Phone Care Team Providers Care General Handling Supervisor Name Role Phone Mimi Starr MD Primary [...] of Asthma, No family history of Sudden /[place] under age 55, No family history of [...] age to complete this topic Care Teams General Handling Supervisor Relationship Specialty Start Date End Date Mimi Starr MD PCP - General 11/11/16
[2024-08-23 10:11] VITALS: PULSE 90; O2SAT 99
== END 2024-08-23 10:49 | disposition home or self-care (01) ==
LOC: HO.HCC 09:49
PROVIDERS: PCP Internal Medicine; Visit Provider Internal Medicine
DX: F19.21 Other psychoactive substance dependence, in remission (principal); Z51.81 Encounter for therapeutic drug level monitoring; Z32.02 Encounter for pregnancy test, result negative
CPT/HCPCS: 99213

== ENCOUNTER → 2024-08-23 09:48 | Outpatient (BNVA) | payer MEDICARE, MEDICAID, SELFPAY | PROVIDERS: PCP Internal Medicine; Visit Provider Internal Medicine | DX: Z30.432 Encounter for removal of intrauterine contraceptive device (principal); N81.89 Other female genital prolapse; Z32.02 Encounter for pregnancy test, result negative; F19.21 Other psychoactive substance dependence, in remission; Z79.899 Other long term (current) drug therapy | CPT/HCPCS: 58301; 80307; 81025; 99212 ==

== ENCOUNTER 2024-08-23 10:41 | Outpatient (AMB) | payer MEDICARE, MEDICAID, SELFPAY ==
--- NOTE | 2024-08-23 10:46 | MHC.OFFVIS ---
Vital Signs 08/23/24 10:48 Height 5 ft 6 in Weight 237 lb BMI 38.2 BP 118/78 Intake Visit Reasons: Mirena removal Intake Note: Patient here for Mirena removal,wants to get Theatrical Performer Required: No Information Interpreted: non-clinical & clinical Global Chief Experience Officer: Global Chief Experience Officer Present Accompanied by: Self / Same As Patient Allergies mushroom Allergy (Mild, Verified 08/23/24 10:50) THROAT CLOSING Is last menstrual period known: No (mirena) HPI HPI Mirena removal: Details: Patient is here for Mirena IUD removal. She has had it for 6 years she and her partner want to have a baby she is in recovery and doing very well and she has been thinking about it for a while and she is very clear she met with her provider for the Vivitrol this morning and the plan was made for that to stop as it is contraindicated for so she is as of today not going get anymore and she did not get the dose today. She feels very good about this decision and feels like she has got all of her supports and she will be meeting with her mental health provider's and reviewing the meds with them and I recommend she uses condoms from this point forward she says her last period was August 09 it last 12 days but she is counting every day of spotting when she wipes it is tends to be very light she only needs to use a panty liner for about 3 days. She is taking her multivitamins with folic acid and she is ready and I already have instructed her that if she gets she would need to get care at [facility] because of her history of which she had a postop wound infection from. She also has some uterine prolapse going on and she says that is why she actually has sex as often as she does because she finds it helps keep things up. I have instructed her on Kegel's and we did review them today during the visit and we have discussed pelvic floor therapy and it has been declined in the past but I did place the referral today and also discussed pelvic support in for the future as well. [facility] Medical History Morbid obesity Morbid obesity with BMI of 40.0-44.9, adult Cervical prolapse Constipation Adult general medical exam Yeast dermatitis Hx of abnormal cervical Pap smear Screen for sexually transmitted diseases Shortness of breath Encounter for observation for other suspected diseases and conditions ruled out Psoriasis Cervical cancer screening Smoking Insomnia ADHD Transaminitis Super-super obese Onychogryposis History of drug use History of peptic ulcer Morbid obesity with BMI of 45.0-49.9, adult Asthma Sciatica Low back pain Bipolar 1 disorder GERD (gastroesophageal reflux disease) Anxiety Depression PTSD (post-traumatic stress disorder) Surgical History S/P laparoscopic sleeve gastrectomy History of section H/O dilation and curettage H/O abdominal surgery Family History Father Chronic mental illness Hyperlipidemia HTN (hypertension) Mother Chronic mental illness Obesity Brother No problems noted. Brother No problems noted. Son ADHD Son ADHD Family/Other Substance use disorder Maternal Grandfather Colon cancer Social History Household Members: Family Housing: House Are you a primary career agent to a significant other at home: No Do you presently have visiting nurse or other home services: No Alcohol intake: current Alcohol type: hard liquor Patient Tobacco Use Status: Former Tobacco user Tobacco use type: Cigarette Cigarettes Per Day: 7 e-Cigarette/Vaping Use: Currently Using Second Hand Smoke Exposure: No service: No Current occupational status: unemployed Female Reproductive History Menstrual Age of Menarche: 12 Date of last menstrual period: 08/09/24 Physical Exam Vital Signs: Last Vital Signs BP 118/78 08/23/24 10:48 BMI result Body Mass Index 38.2 Other: No abnormal discharge there is some cervical prolapse in that the cervix is about 4-5 cm inside the introitus when patient did a Kegel she did elevated significantly. The Mirena string was grasped with the ring forceps and when patient gave 1 cough it was easily removed. External Female Exam: normal external appearance Speculum Exam - Vagina: normal appearance of the vagina and normal vaginal discharge Speculum Exam - Cervix: normal appearance of the cervix Bimanual exam- vagina & uterus: normal bimanual exam, uterine size normal, consistency normal, uterine mobility normal, uterine shape normal and non-tender Bimanual Exam- Adnexa, other: normal adnexae, no masses and No adnexal tenderness Office Procedures IUD Insert/Removal Details Details: Patient did not need cultures or Pap today. Speculum exam done cervix multiparous pink smooth healthy appearing with clear scant normal-appearing healthy mucus Mirena string visible and easily grasped with ring forceps patient gave 1 cough and string grasped and IUD removed easily. Some cervical prolapse noted in that the cervix is low down, approximately 4-5 cm inside introitus. I did have patient do Kegel's repeatedly and she has previously declined pelvic floor therapy but I did place the referral and strongly recommend that she go and she might even check out the PT office today so she no was where it would be. I also discussed pelvic support during a future . [id number] Removal Procedure code (CPT) selection complete Results AMB Test Urine AMB Test Urine Negative Last Edit by Jaime Castro CMA on 08/23/24 10:09 AMB 14 Panel Urine Drug Screen Urine Marijuana (THC) Negative Last Edit by Jaime Castro CMA on 08/23/24 10:10 Urine Cocaine Negative Last Edit by Jaime Castro CMA on 08/23/24 10:10 Urine Morphine Negative Last Edit by Jaime Castro CMA on 08/23/24 10:10 Urine Methamphetamine Negative Last Edit by Jaime Castro CMA on 08/23/24 10:10 Urine Amphetamine Positive Last Edit by Jaime Castro CMA on 08/23/24 10:10 Urine Benzodiazepine Negative Last Edit by Jaime Castro CMA on 08/23/24 10:10 Urine Barbiturates Negative Last Edit by Jaime Castro CMA on 08/23/24 10:10 Urine Methadone Negative Last Edit by Jaime Castro CMA on 08/23/24 10:10 Urine Buprenorphine Negative Last Edit by Jaime Castro CMA on 08/23/24 10:10 Urine Tricyclic Antidepressant Negative Last Edit by Jaime Castro CMA on 08/23/24 10:10 Urine MDMA Negative Last Edit by Jaime Castro CMA on 08/23/24 10:10 Urine Oxycodone Negative Last Edit by Jaime Castro CMA on 08/23/24 10:10 Urine Phencyclidine Negative Last Edit by Jaime Castro CMA on 08/23/24 10:10 Urine Propoxyphene Negative Last Edit by Jaime Castro CMA on 08/23/24 10:10 AMB Test Urine AMB Test Urine Negative Last Edit by Madeline Obrien CMA on 08/23/24 11:10 Results Reviewed Results Reviewed: Laboratory Last Values [facility]st Clinic Negative 08/23/24 11:08 Assessment & Plan Assessment & Plan (1) Pelvic floor weakness: Code(s): N81.89 - Other female genital prolapse Category: Medical (2) Presence of 52 mg levonorgestrel-releasing intrauterine device (IUD): Comment: Has been in for 6 years. menses have returned. very much needs reliable contraception; to be replaced this week, Increased pain at deployment of Mirena I stat ultrasound requested to double check position now please. [id number]-iud is correctly situated in uterus per u/s... Code(s): Z97.5 - Presence of (intrauterine) contraceptive device Category: Social Hx (3) Patient desires : Code(s): Z31.9 - Encounter for procreative management, unspecified Category: Medical Plan Patient is here for Mirena IUD removal. She has had it for 6 years she and her partner want to have a baby she is in recovery and doing very well and she has been thinking about it for a while and she is very clear she met with her provider for the Vivitrol this morning and the plan was made for that to stop as it is contraindicated for so she is as of today not going get anymore and she did not get the dose today. She feels very good about this decision and feels like she has got all of her supports and she will be meeting with her mental health provider's and reviewing the meds with them and I recommend she uses condoms from this point forward she says her last period was August 09 it last 12 days but she is counting every day of spotting when she wipes it is tends to be very light she only needs to use a panty liner for about 3 days. She is taking her multivitamins with folic acid and she is ready and I already have instructed her that if she gets she would need to get care at [facility] because of her history of which she had a postop wound infection from. She also has some uterine prolapse going on and she says that is why she actually has sex as often as she does because she finds it helps keep things up. I have instructed her on Kegel's and we did review them today during the visit and we have discussed pelvic floor therapy and it has been declined in the past but I did place the referral today and also discussed pelvic support in for the future as well. IUD was easily removed with 1 cough. Instructed on Kegel's and she was able to do them with good elevation. Orders: Orders AMB HCG Urine Test Today Z32.02 - Encounter for test, result negative AMB IUD Insertion/Removal - Patient Supply Today N81.89 - Other female genital prolapse, Z30.430 - Encounter for insertion of intrauterine contraceptive device, Z30.432 - Encounter for removal of intrauterine contraceptive device, Z31.9 - Encounter for procreative management, unspecified, Z97.5 - Presence of (intrauterine) contraceptive device Referrals Pelvic Nuclear Power Reactor Operator Referral M62.89 - Other specified disorders of muscle Coding Level of Care Code Est Pt Level 3 (14658) Diagnoses Pelvic floor weakness N81.89 Presence of 52 mg levonorgestrel-releasing intrauterine device (IUD) Z97.5 Patient desires Z31.9 CPT Codes Details - CPT: 11956-IJU Removal ([id number])
[2024-08-23 10:48] VITALS: BP 118/78; BMI 38.2
== END 2024-08-23 11:40 | disposition home or self-care (01) ==
LOC: HO.HWS 10:41
PROVIDERS: PCP Internal Medicine; Visit Provider Advanced Practice Midwife
DX: N81.89 Other female genital prolapse (principal); Z31.9 Encounter for procreative management, unspecified; Z30.432 Encounter for removal of intrauterine contraceptive device; Z32.02 Encounter for pregnancy test, result negative
CPT/HCPCS: 58301; 99213

== ENCOUNTER 2024-10-24 07:27 | Outpatient (AMB) | payer MEDICARE, MEDICAID, SELFPAY ==
--- OUTSIDE RECORDS SUMMARY | 2024-10-24 07:30 | XMS_ITS | Clinical Summary ---
Author Organization [facility] Address [address] [place] [phone] Phone Care Team Providers Care Pre Sales Systems Engineer Name Role Phone Mimi Starr MD Primary [...] of Asthma, No family history of Sudden /[place] under age 55, No family history of [...] 05/25/2017 05/25/2007, 12/25/2000, 11/22/1993, Additional history exists COVID-19 Vaccine ( season) 2023 Influenza Vaccines (#1) 2024 HIB Vaccines Completed 01/26/1990 IPV Vaccines Completed [...] age to complete this topic Care Teams Pre Sales Systems Engineer Relationship Specialty Start Date End Date Mimi Starr MD PCP - General 11/11/16
--- NOTE | 2024-10-24 07:53 | MHC.PC.OV ---
Vital Signs 10/24/24 07:55 Height 5 ft 6 in Weight 245 lb 5.992 oz BMI 39.6 BP 112/80 Blood Pressure Location Lt brachial Position Sitting Intake Visit Reasons: PE Intake Note: Patient here for a physical exam Jewel Setter Required: No Accompanied by: Self / Same As Patient Allergies mushroom Allergy (Mild, Verified 10/24/24 08:12) THROAT CLOSING Medication List - Last Reconciled 10/24/24 by Elizabeth Santana MD albuterol sulfate 90 mcg/actuation 2 puffs inhalation Q4-6H PRN 30 days benzoyl peroxide 10% (Acne Control (benzoyl peroxide)) 1 appl topical DAILY clindamycin phosphate 1% 1 appl topical DAILY fluticasone propionate 50 mcg/actuation 2 sprays intranasal DAILY lisdexamfetamine 60 mg PO QAM melatonin 5 mg PO BEDTIME PRN oxcarbazepine 300 mg PO QPM PNV,calcium [id number] acid 27 mg iron- 1 mg ( Vitamins Plus Low Iron) 1 tab PO DAILY propranolol 10 mg PO BID topiramate 50 mg PO BID tretinoin 0.025% appl topical BEDTIME ustekinumab (Stelara) 90 mg subcut Q12W Tobacco use date assessed: 10/24/24 Dental Screening Dental Screen Date: 10/24/24 Did you have a dental visit in the last 12 months?: Yes Did you have a dental problem in the last 6 months where you did not have access to dental care?: No Was dental information given to patient?: Patient has dentist HPI HPI Comments History of Present Illness Details The patient is a 34-year-old female presenting for a physical exam. The patient has a history of psoriasis, which she has been managing with Stelara injections every three months. She reports significant improvement with the treatment, reducing the extent of psoriasis from covering her entire body to only two small spots. The patient has been using Stelara since her teenage years and finds it very effective. She underwent a gastric sleeve surgery nearly two years ago, which initially resulted in weight loss. However, she has experienced weight gain recently, which she attributes to stopping a dietary fluid substitution. The patient reports shortness of breath, which she associates with vaping. She expresses a desire to quit vaping and is considering using resources like [employer] to assist her in cessation. In terms of preventative care, the patient is up to date with her Tdap vaccine and has a Pap smear scheduled for November 11. - Tdap vaccine up to date - Pap smear was 2022. - Considering smoking cessation resources like [employer] [facility] Medical History Morbid obesity Morbid obesity with BMI of 40.0-44.9, adult Cervical prolapse Constipation Adult general medical exam Yeast dermatitis Hx of abnormal cervical Pap smear Screen for sexually transmitted diseases Shortness of breath Encounter for observation for other suspected diseases and conditions ruled out Psoriasis Cervical cancer screening Smoking Insomnia ADHD Transaminitis Super-super obese Onychogryposis History of drug use History of peptic ulcer Morbid obesity with BMI of 45.0-49.9, adult Asthma Sciatica Low back pain Bipolar 1 disorder GERD (gastroesophageal reflux disease) Anxiety Depression PTSD (post-traumatic stress disorder) Surgical History S/P laparoscopic sleeve gastrectomy History of section H/O dilation and curettage H/O abdominal surgery Family History (Updated 10/24/24 @ 08:19 by Elizabeth Santana MD) Father Chronic mental illness Hyperlipidemia HTN (hypertension) COPD (chronic obstructive pulmonary disease) Mother Chronic mental illness Obesity Brother No problems noted. Brother No problems noted. Son ADHD Son ADHD Family/Other Substance use disorder Maternal Grandfather Colon cancer Social History (Updated 10/24/24 @ 08:20 by Elizabeth Santana MD) Household Members: Family Housing: House Are you a primary healthcare science specialist to a significant other at home: No Do you presently have visiting nurse or other home services: No Alcohol intake: former Patient Tobacco Use Status: Former Tobacco user Tobacco use type: Cigarette Cigarettes Per Day: 7 e-Cigarette/Vaping Use: Currently Using Second Hand Smoke Exposure: No service: No Current occupational status: unemployed Cognitive needs: No Hearing needs: No Vision needs: No Female Reproductive History Menstrual Age of Menarche: 12 Questionnaire PHQ-9 Over the last 2 weeks, how often have you been bothered by any of the following problems? 1. Little interest or pleasure in doing things: not at all 2. Feeling down, depressed, or hopeless: not at all 3. Trouble falling or staying asleep, or sleeping too much: not at all 4. Feeling tired or having little energy: not at all 5. Poor appetite or overeating: not at all 6. Feeling bad about yourself - or that you are a failure or have let yourself or your family down: not at all 7. Trouble concentrating on things, such as reading the newspaper or watching television: not at all 8. Moving or speaking so slowly that other people could have noticed. Or the opposite - being so fidgety or restless that you have been moving around a lot more than usual: not at all 9. Thoughts that you would be better off or of hurting yourself in some way: not at all Total score: 0 Depression Screening Interpretation: Negative Depression Screening Done: Yes 49779 - PHQ-9 Billing: Yes Source: Developed by Drs. Eleuterio Gómez, Sherin Enrique, Nicolas Garcia and colleagues, with an educational sekou from [employer]. Thrive Questionnaire Date Thrive assessed: 10/17/24 I am a: Patient What is your living situation today?: I have a steady place to live Within the past 12 months, did the food you bought not last and you didn't have the money to get more?: Never true Within the past 12 months, did you worry whether your food would run out before you got money to buy more?: Never true Do you have trouble paying for medicines?: No Do you have trouble getting transportation to medical appointments?: No Do you have trouble paying your heating and electricity bill?: No Do you have trouble taking care of your child, family member or friend?: No Do you have trouble with day-to-day activities such as bathing, preparing meals, shopping, managing finances, etc.?: No Are you currently unemployed and looking for a job?: No Are you interested in more education?: No Please select the resources that you would like help with: None Currently or been in a relationship where the following occur: No concerns reported THRIVE Score: 0 AUDIT C Alcohol Use Questionnaire (AUDIT-C) 1. How often do you have a drink containing alcohol?: Never Total Score: 0 Score Reviewed/Action Taken: No MIKE-7 AMB Questionnaire MIKE-7 Date MIKE - 7 assessed: 10/24/24 Feeling nervous, anxious, or on edge: 1 = Several days Not being able to stop or control worryin = Not at all Worrying too much about different things: 0 = Not at all Trouble relaxin = Not at all Being so restless that it is hard to sit still: 0 = Not at all Becoming easily annoyed or irritable: 0 = Not at all Feeling afraid as if something awful might happen: 0 = Not at all Total MIKE-7 score (0-4 normal; 5-9 mild; 10-14 moderate; 15-21 severe): 1 Source: Developed by Drs. Eleuterio Gómez, Sherin Enrique, Nicolas Garcia and colleagues, with an educational sekou from [employer]. MIKE-7 Assessment Billing MIKE-7 Assessment Tool: MIKE-7 Assessment 02635 Review of Systems Const All systems reviewed & are unremarkable except as noted in HPI and below Card Denies chest pain at rest, Denies chest pain with activity, Denies edema, Denies irregular heart rhythm, Denies claudication, Denies dyspnea, Denies dyspnea on exertion, Denies orthopnea, Denies paroxysmal nocturnal dyspnea and Denies slow heart rate Resp Denies cough, Denies dyspnea and Denies dyspnea on exertion GI Denies abdominal pain, Denies change in bowel habits, Denies excessive flatus, Denies nausea and Denies vomiting Denies urinary incontinence, Denies urinary hesitancy and Denies urinary urgency Musc Denies abnormal gait, Denies atrophy, Denies deformity and Denies limited range of motion Skin/Breast Denies bleeding lesions, Denies changing lesions and Denies rash Neuro Denies abnormal gait, Denies behavioral changes and Denies lack of coordination Psych Denies behavioral changes Physical exam (Primary Care) Vital Signs: Last Vital Signs BP 112/80 10/24/24 07:55 BMI result Body Mass Index 39.6 BMI Assessment/Plan discussion: High BMI High, discussed plan: lifestyle, weight reduction, dietary and physical activity Tobacco/Smoking Status: Tobacco use Status Tobacco use date assessed 10/24/24 10/24/24 08:07 Patient Tobacco Use Status Former Tobacco user 10/24/24 07:58 Tobacco use type Cigarette 10/24/24 07:58 e-Cigarette/Vaping Use Currently Using 10/24/24 07:58 PHQ-9: PHQ-9 Score PHQ-9: Total score 0 10/24/24 08:07 Depression Screening Interpretation: Negative Thrive Assessment: Date of Thrive Assessment Date Thrive assessed 10/17/24 10/24/24 07:58 Currently or been in a relationship where the following occur: No concerns reported [facility] Head: Yes normal to inspection, Yes normocephalic and Yes atraumatic Ears: external ears normal Eyes General: appearance normal, both eyes and all related structures Eyelids: Yes eyelids normal Conjunctivae: conjunctivae normal Neck Neck: Yes normal visual inspection and Yes supple Resp Effort & Inspection: normal respiratory effort Auscultation: clear to auscultation bilaterally Cardio Jugular venous distension: no JVD Rate: regular rate Rhythm: regular rhythm Heart sounds: S1 normal heart sound present and S2 normal heart sound present GI Inspection: Yes normal to inspection Palpation (GI): Soft to palpation and nontender Auscultation: normal bowel sounds Skin General skin exam: no rashes or lesions noted Neuro General: no focal motor deficits Extrem General: Yes full ROM Psych Appearance: grossly normal Coding Level of Care Code Est Pt Prev Care 18-39y(31779) Diagnoses Physical exam Z00.00 Bipolar 1 disorder F31.9 History of substance dependence F19.21 Additional Codes PHQ-9 - 49477 - PHQ-9 Billing: Yes ([id number]) MIKE-7 Assessment Billing - MIKE-7 Assessment Tool: MIKE-7 Assessment 71552 ([id number]) Time Spent (min) 31 Assessment & Plan Assessment & Plan (1) Physical exam: Code(s): Z00.00 - Encounter for general adult medical examination without abnormal findings Category: Medical (2) Bipolar 1 disorder: Code(s): F31.9 - Bipolar disorder, unspecified Category: Medical (3) History of substance dependence: Comment: She is doing well but wants to conceive She is actually getting IUD out now. Code(s): F19.21 - Other psychoactive substance dependence, in remission Category: Medical Plan The patient will continue with her current psoriasis management using Stelara injections every three months, as it has been effective in reducing her symptoms significantly. She is advised to maintain sun protection due to increased skin sensitivity from her treatment regimen. For her weight management, the patient is encouraged to revisit dietary strategies and consider returning to weight management programs to address recent weight gain. Regarding her respiratory symptoms, the patient is motivated to quit vaping and is provided with resources such as [employer] to assist in cessation. Preventative care measures include ensuring her vaccinations are up to date and completing her scheduled Pap smear. Patient was informed and verbally consented to the use of an ambient scribe for clinic note documentation during this visit. Orders: Orders Complete Blood Count Auto Diff Today D64.9 - Anemia, unspecified, L40.9 - Psoriasis, unspecified Hepatitis A,B,C Profile Today L40.9 - Psoriasis, unspecified T Spot TB Today Z11.1 - Encounter for screening for respiratory tuberculosis Comprehensive Met. Panel Today L40.9 - Psoriasis, unspecified Medications: Refilled fluticasone propionate 50 mcg/actuation 2 sprays intranasal DAILY 48 mL 6RF
[2024-10-24 07:55] VITALS: BP 112/80; BMI 39.6
== END 2024-10-24 08:25 | disposition home or self-care (01) ==
LOC: HO.HMCH 07:28
PROVIDERS: PCP Internal Medicine; Visit Provider Internal Medicine
DX: Z00.00 Encounter for general adult medical examination without abnormal findings (principal); F31.9 Bipolar disorder, unspecified; F19.21 Other psychoactive substance dependence, in remission

== ENCOUNTER 2024-10-24 07:27 | Outpatient (REF) | payer MEDICARE, MEDICAID, SELFPAY ==
[2024-10-24 08:43] LABS: MANUAL DIFF FLAG NO
[2024-10-24 09:04] LABS: Hematocrit 41.3 % (37.0-47.0); Hemoglobin 13.9 g/dl (12.0-16.0); Imm Gran Abs Auto 0.02 X10*3/uL (0.00-0.03); Imm Gran Pct Auto 0.4 % (0.0-0.4); Lymphocytes Absolute Auto 1.5 X10*3/uL (1.2-4.9); Mean Corpuscular HGB Conc 33.7 g/dl (31.0-35.0); Mean Corpuscular Hemoglobin 30.3 pg (27.0-33.0); Mean Corpuscular Volume 90.0 fL (80.0-98.0); NRBC Abs Auto 0.000 X10*3/uL (0.0-0.012); NRBC Pct Auto 0.0 /100WBC (0.0-0.2); Platelet Count 255 X10*3/uL (160-400); Red Blood Count 4.59 X10*6/uL (4.20-5.50); White Blood Count 5.5 X10*3/uL (4.8-10.8)
[2024-10-24 09:32] LABS: Alanine Aminotransferase 15 U/L (0-31); Albumin Level 4.6 g/dL (3.5-5.0); Alkaline Phosphatase 69 U/L (39-117); Anion Gap 9 (12-20); Aspartate Amino Transferase 17 U/L (5-31); Blood Urea Nitrogen 10 mg/dL (9-16); Calcium 9.6 mg/dL (8.4-10.2); Carbon Dioxide 28 mmol/L (22-29); Chloride 108 mmol/L (96-108); Estimated Glomerular Filt Rate > 60; Potassium 4.3 mmol/L (3.3-5.1); Sodium 141 mmol/L (135-145); Total Protein 7.4 g/dL (6.5-8.0)
[2024-10-24 09:55] LABS: HBS Num1 8.79 mIU/mL (0-7.99); HBc Num1 0.05 S/CO (0.00-0.79); HBsAGNum1 0.35 S/CO (0.00-0.99); Hepatitis A Antibody IgM 0.12 Index (0-0.79); Hepatitis B Surface Antigen Negative (Negative); ~HepC Num1 0.10 S/CO (0.00-0.79); ~Hepatitis A Antibody IgM Nonreactive (Nonreactive); ~Hepatitis C Antibody Nonreactive (Nonreactive)
[2024-10-24 11:30] LABS: HBS Num2 9.40 mIU/mL (0-7.99); HBS Num3 9.22 mIU/mL (0-7.99); ~Hepatitis B Surface Antibody GRAYZONE (Nonreactive)
[2024-10-26 22:09] LABS: TS Negative Control Passed; TS Panel A 0; TS Panel B 0; TS Positive Control Passed; TSpotTB Negative (Negative)
== END 2024-10-24 07:28 | disposition home or self-care (01) ==
LOC: HO.LAB 07:27
PROVIDERS: PCP Internal Medicine; Visit Provider Internal Medicine
DX: Z00.00 Encounter for general adult medical examination without abnormal findings (principal); F31.9 Bipolar disorder, unspecified; F19.21 Other psychoactive substance dependence, in remission; Z13.31 Encounter for screening for depression; Z13.39 Encounter for screening examination for other mental health and behavioral disorders; L40.9 Psoriasis, unspecified; D64.9 Anemia, unspecified; Z11.1 Encounter for screening for respiratory tuberculosis
CPT/HCPCS: 36415; 80053; 85025; 86481; 86704; 86706; 86709; 86803; 87340; 96127; 99395

== ENCOUNTER 2025-01-09 13:31 | Outpatient (REF) | payer MEDICARE, MEDICAID, SELFPAY ==
[2025-01-09 14:51] LABS: Alanine Aminotransferase 13 U/L (0-31); Albumin Level 4.8 g/dL (3.5-5.0); Alkaline Phosphatase 67 U/L (39-117); Anion Gap 10 (12-20); Aspartate Amino Transferase 17 U/L (5-31); Blood Urea Nitrogen 6 mg/dL (9-16); Calcium 9.9 mg/dL (8.4-10.2); Carbon Dioxide 31 mmol/L (22-29); Chloride 106 mmol/L (96-108); Estimated Glomerular Filt Rate > 60; Potassium 4.0 mmol/L (3.3-5.1); Sodium 143 mmol/L (135-145); Total Protein 7.4 g/dL (6.5-8.0)
[2025-01-09 15:31] LABS: Folate 17.2 ng/mL (> or = 4.0); Vitamin B12 657 pg/mL (200-900)
[2025-01-09 16:43] LABS: Microalbum/Creatinine Ratio Ur 7.8 ug/mg cr (<30)
== END 2025-01-09 13:32 | disposition home or self-care (01) ==
LOC: HO.LAB 13:31
PROVIDERS: PCP Internal Medicine; Visit Provider Internal Medicine
DX: K21.9 Gastro-esophageal reflux disease without esophagitis (principal); R80.9 Proteinuria, unspecified; E53.8 Deficiency of other specified B group vitamins
CPT/HCPCS: 36415; 80053; 82043; 82570; 82607; 82746

== ENCOUNTER 2025-01-28 15:08 | Outpatient (AMB) | payer MEDICARE, MEDICAID, SELFPAY ==
--- NOTE | 2025-01-28 15:11 | AM.OFFWIN_ITS ---
Intake Vital Signs 01/28/25 15:12 Height 5 ft 6 in Weight 241 lb BMI 38.9 BP 100/62 Blood Pressure Location Rt brachial Position Sitting Pulse 91 Pulse Source Pulse Oximeter Temp 98.2 F Temp Source Oral Pulse Oximetry (%) 96 Oxygen Delivery Method Room Air Intake Visit Reasons: EP Sore throat, Right ear pain Intake Note: EP complains of sore throat and right ear pain along with bobbling sound in her right ear for the last two days. The EP also complains of mild cough at night and onset of the pain in her left ear as of today. Patient Tobacco Use Status: Former Tobacco user Allergies mushroom Allergy (Mild, Verified 01/28/25 15:20) THROAT CLOSING Do you need a note to return to daycare/school/sports/work: No HPI HPI Comments History of Present Illness Details History - The patient is a 34-year-old female pr esenting with a sore throat and associated symptoms. - The sore throat began on the right dakota e three days ago, with the left starting today. - The patient reports a headache that is always present. - A cough began approximately five to si x days ago, described as inconsistent. - Postnasal drip was noted to have start ed this morning. - The patient denies chest pain, shortne ss of breath, and abdominal pain. - The patient has not taken any allergy medications despite suspecting allergies. - The patient has a history of strep thr oat, last occurring six months ago. - The patient's son was diagnosed with b ronchitis last month but has not been home often. - She denies nausea or vomiting. - She admits to vaping. Physical Exam General: Cooperative, healthy appearing, comfortable and no acute distress Orientation/consciousness: Patient oriented x3 Limitations: No limitations Head: Normal to inspection Ears: Hearing grossly normal bilaterally, external ears normal and TM's normal bilaterally Nose: Normal external nose present, normal nares present, and no nasal discharge present. Face and sinus: Sinuses nontender to palpation. Mouth: Normal oral and palatal mucosa present and moist mucous membranes noted. Throat: Tonsils normal. Uvula is midline. Posterior oropharynx with erythema and no exudates. Eyes: Appearance normal, both eyes and all related structures Neck: Normal visual inspection, full ROM. Big lymph nodes noted. + tonsillar lymphadenopathy noted bilaterally. Respiratory: Clear to auscultation bilaterally. Normal respiratory effort, able to speak in complete sentences. No respiratory distress, not tachypneic, no tripod positioning and no use of accessory muscles. Cardiovascular: Regular rate and rhythm. Normal S1 and S2 Skin: No rashes or lesions noted. Patient was informed and verbally consented to the use of an ambient scribe for clinic note documentation during this visit [facility] Medical History Morbid obesity Morbid obesity with BMI of 40.0-44.9, adult Cervical prolapse Constipation Adult general medical exam Yeast dermatitis Hx of abnormal cervical Pap smear Screen for sexually transmitted diseases Shortness of breath Encounter for observation for other suspected diseases and conditions ruled out Psoriasis Cervical cancer screening Smoking Insomnia ADHD Transaminitis Super-super obese Onychogryposis History of drug use History of peptic ulcer Morbid obesity with BMI of 45.0-49.9, adult Asthma Sciatica Low back pain Bipolar 1 disorder GERD (gastroesophageal reflux disease) Anxiety Depression PTSD (post-traumatic stress disorder) Surgical History S/P laparoscopic sleeve gastrectomy History of section H/O dilation and curettage H/O abdominal surgery Family History (Updated 10/24/24 @ 08:19 by Elizabeth Santana MD) Father Chronic mental illness Hyperlipidemia HTN (hypertension) COPD (chronic obstructive pulmonary disease) Mother Chronic mental illness Obesity Brother No problems noted. Brother No problems noted. Son ADHD Son ADHD Family/Other Substance use disorder Maternal Grandfather Colon cancer Social History (Updated 10/24/24 @ 08:20 by Elizabeth Santana MD) Household Members: Family Housing: House Are you a primary medical care evaluation specialist to a significant other at home: No Do you presently have visiting nurse or other home services: No Alcohol intake: former Patient Tobacco Use Status: Former Tobacco user Tobacco use type: Cigarette Cigarettes Per Day: 7 e-Cigarette/Vaping Use: Currently Using Second Hand Smoke Exposure: No service: No Current occupational status: unemployed Cognitive needs: No Hearing needs: No Vision needs: No Female Reproductive History Menstrual Age of Menarche: 12 Review of Systems Const All systems reviewed & are unremarkable except as noted in HPI and below Physical Exam Vital Signs: Last Vital Signs Temp 98.2 F 01/28/25 15:12 Pulse 91 01/28/25 15:12 BP 100/62 01/28/25 15:12 Pulse Ox 96 01/28/25 15:12 Oxygen Delivery Method Room Air 01/28/25 15:12 BMI result Body Mass Index 38.9 Results Reviewed Results Reviewed: will review the x-ray in the office Assessment & Plan Assessment & Plan (1) Sore throat: Code(s): J02.9 - Acute pharyngitis, unspecified Plan Most likely pharyngitis vs viral illness vs URI vs covid vs flu rapid was negative plan - Initiate antibiotic therapy with penicillin due to presentation and Centor criteria score of 2 - Send resp panel for further analysis to confirm diagnosis. - Monitor symptoms and adjust treatment based on culture results. - tylenol or motrin as needed for pain or fever - diet as tolerated - follow up with patient regarding the results - f/u with PCP as needed Orders: Orders SARS-CoV2/FLU/RSV Today R09.89 - Other specified symptoms and signs involving the circulatory and respiratory systems Medications: New penicillin V potassium 500 mg PO BID 14 tabs 0RF 7 days Coding Level of Care Code Est Pt Level 3 (65464) Diagnoses Sore throat J02.9
[2025-01-28 15:12] VITALS: BP 100/62; PULSE 91; TEMP 36.8; O2SAT 96; BMI 38.9
--- OUTSIDE RECORDS SUMMARY | 2025-01-28 19:34 | XMS_ITS | Clinical Summary ---
Author Organization [facility] Address [address] [place] [id number] Phone Care Team Providers Care Phone Banker Name Role Phone Mimi Starr MD Primary [...] of Asthma, No family history of Sudden /ME under age 55, No family history of [...] 11/22/1993, Additional history exists Influenza Vaccines (#1) 2024 COVID-19 Vaccine ( season) 2024 HIB Vaccines Completed 01/26/1990 IPV Vaccines [...] age to complete this topic Care Teams Phone Banker Relationship Specialty Start Date End Date Mimi Starr MD PCP - General 11/11/16
--- OUTSIDE RECORDS SUMMARY | 2025-01-28 19:34 | XMS_ITS | Encounter Summary ---
Author Organization [facility] Address [address] [place] [phone] Phone Care Team Providers Care Doctor Of Chiropractic Name Role Phone Mimi Starr MD Primary Care Provider Unavailabl e Encounter Details Date Type Department Care Team (Late st Contact Info) Description 11/09/[address] [facility] Family Medicine [address] [place] [address] Family Medicine, Physician [facility] [address] [place], [place] [id number] Social History Tobacco Use Types Packs/Day Years [...] on filedocumented in this encounter Care Teams Doctor Of Chiropractic Relationship Specialty Start Date End Date Mimi Starr MD PCP - General 11/11/16 documented as of this encounter
--- OUTSIDE RECORDS SUMMARY | 2025-01-28 19:34 | XMS_ITS | Encounter Summary ---
Author Organization [facility] Address [address] [place] [address] Phone Care Team Providers Care Glue Clamp Operator Name Role Phone Mimi Starr MD Primary Care Provider Unavailabl e Encounter Details Date Type Department Care Team (Late st Contact Info) Description 11/17/2016 Conversion Encounter [facility] - [address] [id number] Social History Tobacco Use Types Packs/Day Years [...] on filedocumented in this encounter Care Teams Glue Clamp Operator Relationship Specialty Start Date End Date Mimi Starr MD PCP - General 11/11/16 documented as of this encounter
== END 2025-01-28 16:18 | disposition home or self-care (01) ==
PROVIDERS: PCP Internal Medicine; Visit Provider Physician Assistant Medical
DX: M25.561 Pain in right knee (principal); J02.9 Acute pharyngitis, unspecified

== ENCOUNTER 2025-01-28 15:08 | Outpatient (REF) | payer MEDICARE, MEDICAID, SELFPAY ==
[2025-01-29 11:34] LABS: Resp Syncy Virus RNA Qual PCR NEGATIVE (Negative); SARS COV2 PCR INHOUSE NEGATIVE (Negative)
== END 2025-01-28 15:09 | disposition home or self-care (01) ==
LOC: HO.LNP 15:08
PROVIDERS: PCP Internal Medicine; Visit Provider Physician Assistant Medical
DX: R05.9 Cough, unspecified (principal); H92.03 Otalgia, bilateral; R09.89 Other specified symptoms and signs involving the circulatory and respiratory systems; Z87.891 Personal history of nicotine dependence
CPT/HCPCS: 87637; 99212

== ENCOUNTER 2025-02-10 09:53 | Outpatient (AMB) | payer MEDICARE, MEDICAID, SELFPAY ==
[2025-02-10 09:57] VITALS: BP 112/76; PULSE 100; TEMP 36.8; O2SAT 99; BMI 40.5
--- NOTE | 2025-02-10 09:57 | AM.OFFWIN_ITS ---
Intake Vital Signs 02/10/25 09:57 Height 5 ft 6 in Weight 251 lb BMI 40.5 BP 112/76 Blood Pressure Location Lt brachial Position Sitting Pulse 100 Pulse Source Pulse Oximeter Temp 98.3 F Temp Source Oral Pulse Oximetry (%) 99 Oxygen Delivery Method Room Air Intake Visit Reasons: EP Tightness in chest, Blockage both ears Intake Note: pt presents with non resolving sinus congestion, chest congestion with coughing worse at night, feels like she is gasping for air with chest heaviness, hearing diminished RT > LT, hot/cold flashes x2+ wks (last seen in walk-in 01/28/25) Patient Tobacco Use Status: Former Tobacco user Allergies mushroom Allergy (Mild, Verified 02/10/25 10:01) THROAT CLOSING Do you need a note to return to daycare/school/sports/work: Yes HPI HPI Comments History of Present Illness Details History - The patient is a 34-year-old female pr esenting with right ear congestion and shortness of breath. - Ear congestion began two weeks ago, in itially accompanied by a sore throat for which antibiotics were prescribed. - The sore throat improved, but ear yamil estion persisted and worsened, leading to the current visit. - Shortness of breath has been noted, wi th the patient feeling as though she is gasping for air. - Cough with yellow sputum developed rec ently, indicating a possible progression of the condition. - No history of asthma, but the patient reports feeling miserable and overwhelmed by symptoms. - Previous antibiotic treatment included penicillin with potassium, which was completed. - She returned today because she has not had any improvement in the symptoms. - She denies fever or chills. - She denies CP, abd pain, n/v/d, SMALL or dizziness. Physical Exam General: Cooperative, healthy appearing, comfortable and no acute distress Orientation/consciousness: Patient oriented x3 Limitations: No limitations Head: Normal to inspection Ears: Hearing grossly normal bilaterally, external ears normal and TM's normal bilaterally Nose: Normal external nose present, normal nares present, and no nasal discharge present. Face and sinus: Sinuses nontender to palpation. Mouth: Normal oral and palatal mucosa present and moist mucous membranes noted. Throat: Tonsils normal. Uvula is midline. Posterior oropharynx with erythema and no exudates. Eyes: Appearance normal, both eyes and all related structures Neck: Normal visual inspection, full ROM. No lymphadenopathy noted. Respiratory: Clear to auscultation bilaterally. Normal respiratory effort, able to speak in complete sentences. No respiratory distress, not tachypneic, no tripod positioning and no use of accessory muscles. Cardiovascular: Regular rate and rhythm. Normal S1 and S2 Skin: No rashes or lesions noted Patient was informed and verbally consented to the use of an ambient scribe for clinic note documentation during this visit [facility] Medical History Morbid obesity Morbid obesity with BMI of 40.0-44.9, adult Cervical prolapse Constipation Adult general medical exam Yeast dermatitis Hx of abnormal cervical Pap smear Screen for sexually transmitted diseases Shortness of breath Encounter for observation for other suspected diseases and conditions ruled out Psoriasis Cervical cancer screening Smoking Insomnia ADHD Transaminitis Super-super obese Onychogryposis History of drug use History of peptic ulcer Morbid obesity with BMI of 45.0-49.9, adult Asthma Sciatica Low back pain Bipolar 1 disorder GERD (gastroesophageal reflux disease) Anxiety Depression PTSD (post-traumatic stress disorder) Surgical History S/P laparoscopic sleeve gastrectomy History of section H/O dilation and curettage H/O abdominal surgery Family History (Updated 10/24/24 @ 08:19 by Elizabeth Santana MD) Father Chronic mental illness Hyperlipidemia HTN (hypertension) COPD (chronic obstructive pulmonary disease) Mother Chronic mental illness Obesity Brother No problems noted. Brother No problems noted. Son ADHD Son ADHD Family/Other Substance use disorder Maternal Grandfather Colon cancer Social History (Updated 10/24/24 @ 08:20 by Elizabeth Santana MD) Household Members: Family Housing: House Are you a primary healthcare liaison to a significant other at home: No Do you presently have visiting nurse or other home services: No Alcohol intake: former Patient Tobacco Use Status: Former Tobacco user Tobacco use type: Cigarette Cigarettes Per Day: 7 e-Cigarette/Vaping Use: Currently Using Second Hand Smoke Exposure: No service: No Current occupational status: unemployed Cognitive needs: No Hearing needs: No Vision needs: No Female Reproductive History Menstrual Age of Menarche: 12 Review of Systems Const All systems reviewed & are unremarkable except as noted in HPI and below Physical Exam Vital Signs: Last Vital Signs Temp 98.3 F 02/10/25 09:57 Pulse 100 02/10/25 09:57 BP 112/76 02/10/25 09:57 Pulse Ox 99 02/10/25 09:57 Oxygen Delivery Method Room Air 02/10/25 09:57 BMI result Body Mass Index 40.5 Assessment & Plan Assessment & Plan (1) Cough: Code(s): R05.9 - Cough, unspecified Qualifiers: Cough type: acute Qualified Code(s): R05.1 - Acute cough Plan Most likely URI vs pneumonia plan - Plan to monitor symptoms and consider further evaluation if no improvement. - Prescribed prednisone and an inhaler to alleviate symptoms. - Cough medicine prescribed to manage symptoms. - Chest x-ray ordered to confirm diagnosis. - If pneumonia is confirmed, antibiotics will be prescribed. - Use albuterol as needed for SOB adnd wheezing - tylenol or motrin as needed - follow up with PCP Orders: Orders XR chest 2V Today R05.9 - Cough, unspecified Medications: New prednisone 40 mg (2 x 20 mg) PO DAILY 10 tabs 0RF 5 days albuterol sulfate 90 mcg/actuation 2 puffs inhalation Q6H PRN 8.5 grams 0RF shortness of breath or wheezing or cough benzonatate 100 mg PO bid-tid PRN 21 caps 0RF Cough 7 days Coding Level of Care Code Est Pt Level 4 (00198) Diagnoses Acute cough R05.1 Cough type: acute
--- OUTSIDE RECORDS SUMMARY | 2025-02-10 11:18 | XMS_ITS | Clinical Summary ---
Author Organization [facility] Address [address] [place] [phone] Phone Care Team Providers Care Production Clerk Name Role Phone Mimi Starr MD Primary [...] of Asthma, No family history of Sudden /[place] under age 55, No family history of [...] age to complete this topic Care Teams Production Clerk Relationship Specialty Start Date End Date Mimi Starr MD PCP - General 11/11/16
--- OUTSIDE RECORDS SUMMARY | 2025-02-10 11:18 | XMS_ITS | Encounter Summary ---
Author Organization [facility] Address [address] [place] [address] Phone Care Team Providers Care Retail Custodial Associate Name Role Phone Mimi Starr MD Primary Care Provider Unavailabl e Encounter Details Date Type Department Care Team (Late st Contact Info) Description 11/17/2016 Conversion Encounter [facility] - [address] [address] Social History Tobacco Use Types Packs/Day Years [...] on filedocumented in this encounter Care Teams Retail Custodial Associate Relationship Specialty Start Date End Date Mimi Starr MD PCP - General 11/11/16 documented as of this encounter
--- OUTSIDE RECORDS SUMMARY | 2025-02-10 11:18 | XMS_ITS | Encounter Summary ---
Author Organization [facility] Address [address] [place] [phone] Phone Care Team Providers Care Kitchen Worker Name Role Phone Mimi Starr MD Primary Care Provider Unavailabl e Encounter Details Date Type Department Care Team (Late st Contact Info) Description 11/09/2010 Documentation [facility] [place] [facility] [address] [place] [address] Family Medicine, Physician [facility] [address] [place], [place] [phone] Social History Tobacco Use Types Packs/Day Years [...] on filedocumented in this encounter Care Teams Kitchen Worker Relationship Specialty Start Date End Date Mimi Starr MD PCP - General 11/11/16 documented as of this encounter
== END 2025-02-10 10:23 | disposition home or self-care (01) ==
PROVIDERS: PCP Internal Medicine; Visit Provider Physician Assistant Medical
DX: R05.1 Acute cough (principal)

== ENCOUNTER 2025-02-10 09:53 | Outpatient (REF) | payer MEDICARE, MEDICAID, SELFPAY ==
--- NOTE | ~2025-02-10 | XR_ITS ---
EXAMINATION: XR CHEST CLINICAL INFORMATION: R05.9 - Cough, unspecified COMPARISON: September 02, 2022 TECHNIQUE: PA and lateral views FINDINGS: No consolidation, pleural effusion or pneumothorax. Cardiac mediastinal silhouette size is normal. Osseous structures are intact. Patient's large body habitus/obesity. XR/XR chest 2V IMPRESSION: No acute airspace disease. Stable chest. Electronically signed by: Riki Ryan MD 02/10/2025 10:53 AM SAMY
== END 2025-02-10 09:54 | disposition home or self-care (01) ==
LOC: HO.HMGCX 09:53
PROVIDERS: PCP Internal Medicine; Visit Provider Physician Assistant Medical
DX: R05.1 Acute cough (principal); Z87.891 Personal history of nicotine dependence
CPT/HCPCS: 71046; 99212

== ENCOUNTER → 2025-02-10 10:24 | Outpatient (BNV) | payer MEDICARE, MEDICAID, SELFPAY | PROVIDERS: PCP Internal Medicine; Visit Provider Radiology Diagnostic Radiology | DX: R05.9 Cough, unspecified (principal) | CPT/HCPCS: 71046 ==

== ENCOUNTER 2025-02-12 11:41 | Outpatient (AMB) | payer MEDICARE, MEDICAID, SELFPAY ==
[2025-02-12 11:43] VITALS: BP 144/100; PULSE 106; RESP 16; TEMP 36.9; O2SAT 98; BMI 40.5
--- NOTE | 2025-02-12 11:43 | AM.OFFWIN_ITS ---
Intake Vital Signs 02/12/25 11:43 02/12/25 12:10 Height 5 ft 6 in Weight 251 lb BMI 40.5 BP 144/100 H 124/88 Blood Pressure Location Lt brachial Lt brachial Position Sitting Sitting Respiration 16 Pulse 106 H 99 Pulse Source Pulse Oximeter Pulse Oximeter Temp 98.5 F Temp Source Oral Pulse Oximetry (%) 98 99 Oxygen Delivery Method Room Air Room Air Oxygen Flow Rate 98.5 Intake Visit Reasons: EP ear pain both sides, congestion, headaches Intake Note: Patient presents c/o ear pain/blocked, chest tightness - ongoing problem (two previous visits for same thing 01/28 & 02/10) Patient Tobacco Use Status: Former Tobacco user Allergies mushroom Allergy (Mild, Verified 02/12/25 11:45) THROAT CLOSING HPI HPI Comments History of Present Illness Details Patient is a 34yo F who presents to office with cold symptoms Was seen at end of January and was given Penicillin for throat and ears; was placed on Penicillin and took [place] improved but returned on Monday for cough/ear pain At that visit this week she was seen and had negative chest xray, given prednisone and tessalon States worsening R ear pain/blocked and now L side feels muffled hearing States cough has helped x 2 hour increments, states cough gets worse before next dose States Prednisone is helping slightly + cough produces phlegm Subjective fever with some chills No other OTC medicines taken for symptoms States still congestion and mucus no longer draining from sinuses She said dry throat without pain + fatigue without body aches + headache from coughing PFSH Medical History Morbid obesity Morbid obesity with BMI of 40.0-44.9, adult Cervical prolapse Constipation Adult general medical exam Yeast dermatitis Hx of abnormal cervical Pap smear Screen for sexually transmitted diseases Shortness of breath Encounter for observation for other suspected diseases and conditions ruled out Psoriasis Cervical cancer screening Smoking Insomnia ADHD Transaminitis Super-super obese Onychogryposis History of drug use History of peptic ulcer Morbid obesity with BMI of 45.0-49.9, adult Asthma Sciatica Low back pain Bipolar 1 disorder GERD (gastroesophageal reflux disease) Anxiety Depression PTSD (post-traumatic stress disorder) Surgical History S/P laparoscopic sleeve gastrectomy History of section H/O dilation and curettage H/O abdominal surgery Family History (Updated 10/24/24 @ 08:19 by Elizabeth Santana MD) Father Chronic mental illness Hyperlipidemia HTN (hypertension) COPD (chronic obstructive pulmonary disease) Mother Chronic mental illness Obesity Brother No problems noted. Brother No problems noted. Son ADHD Son ADHD Family/Other Substance use disorder Maternal Grandfather Colon cancer Social History (Updated 10/24/24 @ 08:20 by Elizabeth Santana MD) Household Members: Family Housing: House Are you a primary social worker palliative care to a significant other at home: No Do you presently have visiting nurse or other home services: No Alcohol intake: former Patient Tobacco Use Status: Former Tobacco user Tobacco use type: Cigarette Cigarettes Per Day: 7 e-Cigarette/Vaping Use: Currently Using Second Hand Smoke Exposure: No service: No Current occupational status: unemployed Cognitive needs: No Hearing needs: No Vision needs: No Female Reproductive History Menstrual Age of Menarche: 12 Review of Systems Const Reports body aches, Reports chills, Reports fatigue, Reports fever(s), Denies frequent falls and Reports headache(s) Eyes Denies change in vision ENT Denies dizziness, Denies ear discharge, Reports otalgia, Reports headache(s), Reports nasal congestion, Denies nasal discharge, Denies sore throat and Denies throat swelling Card Denies syncope Resp Reports change in phlegm color, Reports chest congestion, Reports cough and Denies hemoptysis Musc Reports myalgias Neuro Denies confusion, Denies dizziness, Denies syncope, Denies frequent falls and Reports headache(s) Psych Denies confusion Endo Reports fatigue Aller/Immun Denies throat swelling Physical Exam Exam Exam: General: Non-toxic, NAD. Speaking full sentences. Skin: Warm dry throughout Eye: EOMI, PERRL HENT: Airway patent. Uvula midline. No pharyngeal erythema or edema. No RADIOLOGY INTERVENTIONAL PHYSICIAN. No sinus ttp Bilateral canals clear. R TM + erythematous with bulge. L TM has mild erythema, non-bulging. No TM perforation or hemotympanum noted bilaterally. No mastoid ttp bilaterally Respiratory: CTA bilaterally. No wheezes, rales or rhonchi Cardiac: RRR. No murmur MSK: Full ROM extremities. Neurology: Alert. No aphasia or facial droop. Gait without abnormality Psych: Good mood and affect Vital Signs: Last Vital Signs Temp 98.5 F 02/12/25 11:43 Pulse 106 H 02/12/25 11:43 Resp 16 02/12/25 11:43 BP 144/100 H 02/12/25 11:43 Pulse Ox 98 02/12/25 11:43 Oxygen Delivery Method Room Air 02/12/25 11:43 Oxygen Flow Rate 98.5 02/12/25 11:43 BMI result Body Mass Index 40.5 Const General: No confusion Orientation/consciousness: No confusion Neuro General: No confusion Assessment & Plan Assessment & Plan (1) Otitis media: Code(s): H66.90 - Otitis media, unspecified, unspecified ear Qualifiers: Chronicity: acute Laterality: right Otitis media type: serous Recurrence: non-recurrent Qualified Code(s): H65.01 - Acute serous otitis media, right ear Plan: Patient seen and evaluated. Her vitals were rechecked and normalized. She was anxious and slightly tearful on exam but felt better once we discussed diagnosis/tx plan + R OM on exam, and ? early L OM. No OE noted bilaterally. Lungs CTA, no concern with PNA with normal xray Monday. Discussed Augmentin for sinus/OM. Refill on Tessalon as she was only given 5 day supply Discussed tx management Patient gave verbal understanding and had no additional questions or concerns at time of discharge All questions answered Medications: New amoxicillin-pot clavulanate 875-125 mg 1 tab PO BID 14 tabs 0RF benzonatate 100 mg PO BID-TID PRN 14 caps 0RF cough Coding Level of Care Code Est Pt Level 3 (02343) Diagnoses Non-recurrent acute serous otitis media of right ear H65.01 Chronicity: acute Laterality: right Otitis media type: serous Recurrence: non-recurrent
[2025-02-12 12:10] VITALS: BP 124/88; PULSE 99; O2SAT 99
--- OUTSIDE RECORDS SUMMARY | 2025-02-12 14:36 | XMS_ITS | Encounter Summary ---
Author Organization [facility] Address [address] [place] [phone] Phone Care Team Providers Care Diesel Retrofit Designer Name Role Phone Mimi Starr MD Primary Care Provider Unavailabl e Encounter Details Date Type Department Care Team (Late st Contact Info) Description 11/09/2010 Documentation [facility] [place] Family Medicine [address] [place] [address] Family Medicine, Physician [facility] [address] [place], [place] [phone] Social History Tobacco Use Types Packs/Day Years [...] on filedocumented in this encounter Care Teams Diesel Retrofit Designer Relationship Specialty Start Date End Date Mimi Starr MD PCP - General 11/11/16 documented as of this encounter
--- OUTSIDE RECORDS SUMMARY | 2025-02-12 14:36 | XMS_ITS | Encounter Summary ---
Author Organization [facility] Address [address] [place] [address] Phone Care Team Providers Care Varnish Supervisor Name Role Phone Mimi Starr MD Primary Care Provider Unavailabl e Encounter Details Date Type Department Care Team (Late st Contact Info) Description 11/17/2016 Conversion Encounter [facility] - [address] [address] Social History Tobacco Use Types Packs/Day Years [...] on filedocumented in this encounter Care Teams Varnish Supervisor Relationship Specialty Start Date End Date Mimi Starr MD PCP - General 11/11/16 documented as of this encounter
--- OUTSIDE RECORDS SUMMARY | 2025-02-12 14:36 | XMS_ITS | Clinical Summary ---
Author Organization [facility] Address [address] [place] [phone] Phone Care Team Providers Care Fisher Sponge Hooking Name Role Phone Mimi Starr MD Primary [...] of Asthma, No family history of Sudden /[place] under age 55, No family history of [...] age to complete this topic Care Teams Fisher Sponge Hooking Relationship Specialty Start Date End Date Mimi Starr MD PCP - General 11/11/16
== END 2025-02-12 12:14 | disposition home or self-care (01) ==
PROVIDERS: PCP Internal Medicine; Visit Provider Physician Assistant
DX: H65.01 Acute serous otitis media, right ear (principal)

== ENCOUNTER → 2025-02-12 11:41 | Outpatient (BNVA) | payer MEDICARE, MEDICAID, SELFPAY | PROVIDERS: PCP Internal Medicine; Visit Provider Physician Assistant | DX: H65.01 Acute serous otitis media, right ear (principal) | CPT/HCPCS: 99212 ==

== ENCOUNTER 2025-02-18 12:28 | Outpatient (AMB) | payer MEDICARE, MEDICAID, SELFPAY ==
[2025-02-18 12:32] VITALS: BP 122/88; PULSE 102; TEMP 36.8; O2SAT 99; BMI 40.5
--- NOTE | 2025-02-18 12:32 | AM.OFFWIN_ITS ---
Intake Vital Signs 02/18/25 12:32 Height 5 ft 6 in Weight 251 lb BMI 40.5 BP 122/88 Blood Pressure Location Lt brachial Position Sitting Pulse 102 H Pulse Source Pulse Oximeter Temp 98.3 F Temp Source Oral Pulse Oximetry (%) 99 Oxygen Delivery Method Room Air Intake Visit Reasons: EP both ears blocked, congestion Intake Note: Patient presents c/o right ear soreness & pressure on right side of neck radiating into head. Patient seen on 02/12 for similar complaint. Patient Tobacco Use Status: Former Tobacco user Allergies mushroom Allergy (Mild, Verified 02/18/25 12:36) THROAT CLOSING HPI HPI Comments History of Present Illness Details History - The patient is a 34-year-old female pr esenting with ear congestion and hearing loss. - The patient initially presented with a sore throat and ear pain at the end of January, for which she was prescribed penicillin. - The sore throat improved after complet ing the antibiotic course, but ear symptoms persisted. - A week after completing the initial an tibiotic, the patient experienced worsening ear symptoms, including complete hearing loss in the right ear and partial hearing loss in the left ear. - The patient was then prescribed a stro nger antibiotic, Augmentin, but reported no improvement in ear symptoms. - The patient also experienced pressure in the head and chest, which improved with benzonatate and an inhaler. She has one pill left of the Augmentin. - Previous treatment included prednisone for a cough and suspected pneumonia, which provided some relief. [facility] Medical History Morbid obesity Morbid obesity with BMI of 40.0-44.9, adult Cervical prolapse Constipation Adult general medical exam Yeast dermatitis Hx of abnormal cervical Pap smear Screen for sexually transmitted diseases Shortness of breath Encounter for observation for other suspected diseases and conditions ruled out Psoriasis Cervical cancer screening Smoking Insomnia ADHD Transaminitis Super-super obese Onychogryposis History of drug use History of peptic ulcer Morbid obesity with BMI of 45.0-49.9, adult Asthma Sciatica Low back pain Bipolar 1 disorder GERD (gastroesophageal reflux disease) Anxiety Depression PTSD (post-traumatic stress disorder) Surgical History S/P laparoscopic sleeve gastrectomy History of section H/O dilation and curettage H/O abdominal surgery Family History (Updated 10/24/24 @ 08:19 by Elizabeth Santana MD) Father Chronic mental illness Hyperlipidemia HTN (hypertension) COPD (chronic obstructive pulmonary disease) Mother Chronic mental illness Obesity Brother No problems noted. Brother No problems noted. Son ADHD Son ADHD Family/Other Substance use disorder Maternal Grandfather Colon cancer Social History (Updated 10/24/24 @ 08:20 by Elizabeth Santana MD) Household Members: Family Housing: House Are you a primary point of care technician to a significant other at home: No Do you presently have visiting nurse or other home services: No Alcohol intake: former Patient Tobacco Use Status: Former Tobacco user Tobacco use type: Cigarette Cigarettes Per Day: 7 e-Cigarette/Vaping Use: Currently Using Second Hand Smoke Exposure: No service: No Current occupational status: unemployed Cognitive needs: No Hearing needs: No Vision needs: No Female Reproductive History Menstrual Age of Menarche: 12 Review of Systems Narrative Review of Systems - Ears: Reports complete hearing loss in the right ear and partial hearing loss in the left ear, with a sensation of fullness and vibration. - Respiratory: Reports pressure in the chest, improved with medication. - General: Denies fever, reports hot and cold sensations. All systems reviewed and are unremarkable except as noted in HPI Physical Exam Exam Exam: Physical Exam General: Cooperative, healthy appearing, comfortable and no acute distress Orientation/consciousness: Patient oriented x3 Limitations: No limitations Head: Pressure in head noted Ears: Hearing grossly normal bilaterally, external ears normal, EAC's normal bilaterally and TM's normal bilaterally Nose: Normal external nose present, Normal nares present and No nasal discharge present Face and sinus: Normal facial exam and sinuses nontender Mouth: Normal oral and palatal mucosa present and moist mucous membranes Throat: tonsils normal, no exudates, uvula midline, posterior oropharynx erythema Eyes: Appearance normal, both eyes and all related structures Neck: Normal visual inspection, full ROM Respiratory: Normal respiratory effort, able to speak in complete sentences. Skin: No rashes or lesions noted Neuro: Patient oriented x3 Extremities: Normal to inspection and Yes no clubbing, cyanosis or edema Vital Signs: Last Vital Signs Temp 98.3 F 02/18/25 12:32 Pulse 102 H 02/18/25 12:32 BP 122/88 02/18/25 12:32 Pulse Ox 99 02/18/25 12:32 Oxygen Delivery Method Room Air 02/18/25 12:32 BMI result Body Mass Index 40.5 Assessment & Plan Assessment & Plan (1) Acute serous otitis media of both ears: Code(s): H65.03 - Acute serous otitis media, bilateral Qualifiers: Recurrence: non-recurrent Qualified Code(s): H65.03 - Acute serous otitis media, bilateral Plan Plan Patient was informed and verbally consented to the use of an ambient scribe for clinic note documentation during this visit. - Acute serous OM vs Eustachian tube dysfunction - VSS, pt well appearing and PE unremarkable. - Continue current course of Augmentin until completion. - Initiate Flonase nasal spray twice daily to aid in fluid drainage. - Start a daily allergy pill to help reduce fluid accumulation. - Solumedrol dose pack to reduce symptoms. - Consider referral to ENT if symptoms do not improve after current treatment plan but PLEASE follow up with your PCP first as they will see you and refer, if necessary. Medications: New fluticasone propionate 50 mcg/actuation administer into each nostril 1 spray intranasal Q24H 48 grams 0RF 90 days methylprednisolone PO PER PKG DIR for 6 days 21 ea 0RF Discontinued fluticasone propionate 50 mcg/actuation Discontinued Reason: Doctor's Order 2 sprays intranasal DAILY 48 mL 6RF prednisone Discontinued Reason: Doctor's Order 40 mg (2 x 20 mg) PO DAILY 5 days 10 tabs 0RF benzonatate Discontinued Reason: Duplicate 100 mg PO bid-tid 7 days PRN 21 caps 0RF Cough Coding Level of Care Code Est Pt Level 3 (99739) Diagnoses Non-recurrent acute serous otitis media of both ears H65.03 Recurrence: non-recurrent
--- OUTSIDE RECORDS SUMMARY | 2025-02-19 03:25 | XMS_ITS | Clinical Summary ---
Author Organization [facility] Address [address] [place] [phone] Phone Care Team Providers Care Channel Process Plant Operator Name Role Phone Mimi Starr MD [...] of Asthma, No family history of Sudden /[place] under age 55, No family history of [...] age to complete this topic Care Teams Channel Process Plant Operator Relationship Specialty Start Date End Date Mimi Starr MD PCP - General 11/11/16
--- OUTSIDE RECORDS SUMMARY | 2025-02-19 03:27 | XMS_ITS | Encounter Summary ---
Author Organization [facility] Address [address] [place] [address] Phone Care Team Providers Care Foundation Relations Manager Name Role Phone Mimi Starr MD Primary Care Provider Unavailabl e Encounter Details Date Type Department Care Team (Late st Contact Info) Description 11/17/2016 Conversion Encounter [facility] - [address] [address] Social History Tobacco Use Types Packs/Day Years [...] on filedocumented in this encounter Care Teams Foundation Relations Manager Relationship Specialty Start Date End Date Mimi Starr MD PCP - General 11/11/16 documented as of this encounter
--- OUTSIDE RECORDS SUMMARY | 2025-02-19 03:27 | XMS_ITS | Encounter Summary ---
Author Organization [facility] Address [address] [place] [id number] Phone Care Team Providers Care Incoming Inspector Name Role Phone Mimi Starr MD Primary Care Provider Unavailabl e Encounter Details Date Type Department Care Team (Late st Contact Info) Description 11/09/2010 [place]ation [facility] [place] [address] [place] [address] Family Medicine, Physician [facility] [address] [place], [place] [phone] Social History Tobacco Use Types Packs/Day Years [...] on filedocumented in this encounter Care Teams Incoming Inspector Relationship Specialty Start Date End Date Mimi Starr MD PCP - General 11/11/16 documented as of this encounter
== END 2025-02-18 13:11 | disposition home or self-care (01) ==
PROVIDERS: PCP Internal Medicine; Visit Provider Physician Assistant
DX: H65.03 Acute serous otitis media, bilateral (principal)

== ENCOUNTER → 2025-02-18 12:28 | Outpatient (BNVA) | payer MEDICARE, MEDICAID, SELFPAY | PROVIDERS: PCP Internal Medicine; Visit Provider Physician Assistant | DX: H65.03 Acute serous otitis media, bilateral (principal) | CPT/HCPCS: 99212 ==

== ENCOUNTER 2025-02-27 10:40 | Emergency (ER) | payer MEDICARE, MEDICAID, SELFPAY ==
--- NOTE | ~2025-02-27 | XR_ITS ---
CLINICAL HISTORY: Low back pain 3 views lumbar spine Comparison: CR/SR - XR LUMBAR SPINE 2-3V - 12/05/23 14:41 EDT Findings: Vertebral alignment as mild dextro scoliotic curvature compared to prior. Intervertebral disc height is preserved throughout. No acute fractures or dislocation. Mild facet arthropathy is appreciated at L5-S1. IMPRESSION: No acute lumbar spine findings. Mild lower lumbar spine degenerative changes. This document has been electronically signed by: Azael Weiner MD on 02/27/2025 11:48:36
[2025-02-27 10:40] VITALS: BP 142/80; PULSE 104; RESP 18; TEMP 36.2; O2SAT 100; BMI 40.3
--- NOTE | 2025-02-27 10:54 | ED.BACK ---
HPI - Back Pain/Injury General Chief Complaint: Back Pain/Injury Stated Complaint: lower back pain Time Seen by Provider: 02/27/25 10:54 Source: patient Mode of arrival: ambulatory Limitations: no limitations History of Present Illness ED Provider: HPI Narrative: 34 years old female with complex medical and mental health history including depression, anxiety, h/o polysubstance and alcohol abuse, PTSD, gastric sleep, psoriasis (treated with Stelara), woke up with left lower back pain, she states it feels different than her usual pain however denies any numbness in the lower extremities of the groin, no IV drug use, no hematuria dysuria, does feel like pain wraps around the back up to the front, no vaginal bleeding or discharge reported. No rashes no trauma. Related Data Home Medications ?Medication ?Instructions ?Recorded ?Confirmed clindamycin phosphate 1 % topical 1 appl topical DAILY 08/25/22 10/24/24 gel tretinoin 0.025 % topical cream appl topical BEDTIME 10/24/23 10/24/24 ustekinumab 90 mg/mL subcutaneous 90 mg subcut Q12W 11/02/23 10/24/24 syringe (Stelara) benzoyl peroxide 10 % topical 1 appl topical DAILY 12/08/23 10/24/24 cleanser (Acne Control (benzoyl peroxide)) lisdexamfetamine 60 mg capsule 60 mg PO QAM 08/14/24 10/24/24 Previous Rx's ?Medication ?Instructions ?Recorded albuterol sulfate 90 mcg/actuation 2 puff inhalation Q4-6H PRN 03/18/24 aerosol inhaler bronchospasm 30 days #6.7 grams albuterol sulfate 90 mcg/actuation 2 puff inhalation Q6H PRN 02/10/25 aerosol inhaler shortness of breath or wheezing or cough #8.5 grams amoxicillin 875 mg-potassium 1 tab PO BID #14 tabs 02/12/25 clavulanate 125 mg tablet benzonatate 100 mg capsule 100 mg PO BID-TID PRN cough #14 02/12/25 caps fluticasone propionate 50 1 spray intranasal Q24H 90 days 02/18/25 mcg/actuation nasal #48 grams spray,suspension methylprednisolone 4 mg tablets in See Rx Instructions PO PER PKG DIR 02/18/25 a dose pack #21 ea vitamins with calcium 1 tab PO DAILY #100 tabs 02/25/25 no.72-iron 27 mg-folic acid 1 mg tablet ( Vitamins Plus Low Iron) cyclobenzaprine 5 mg tablet 5 mg PO Q8H PRN muscle spasm 5 02/27/25 days #20 tabs lidocaine 4 % topical patch 1 patch topical DAILY PRN pain #10 02/27/25 (Aspercreme (lidocaine)) ea methylprednisolone 4 mg tablets in 4 mg PO DAILY #21 ea 02/27/25 a dose pack (Medrol (Lisandro)) Allergies Allergy/AdvReac Type Severity Reaction Status Date / Time mushroom Allergy Mild THROAT Verified 02/27/25 10:44 CLOSING Review of Systems Constitutional: Constitutional: Reports as per [facility] Past Medical History Medical History Morbid obesity Morbid obesity with BMI of 40.0-44.9, adult Cervical prolapse Constipation Adult general medical exam Yeast dermatitis Hx of abnormal cervical Pap smear Screen for sexually transmitted diseases Shortness of breath Encounter for observation for other suspected diseases and conditions ruled out Psoriasis Cervical cancer screening Smoking Insomnia ADHD Transaminitis Super-super obese Onychogryposis History of drug use History of peptic ulcer Morbid obesity with BMI of 45.0-49.9, adult Asthma Sciatica Low back pain Bipolar 1 disorder GERD (gastroesophageal reflux disease) Anxiety Depression PTSD (post-traumatic stress disorder) Surgical History S/P laparoscopic sleeve gastrectomy History of section H/O dilation and curettage H/O abdominal surgery Family History Family History (Updated 10/24/24 @ 08:19 by Elizabeth Santana MD) Father Chronic mental illness Hyperlipidemia HTN (hypertension) COPD (chronic obstructive pulmonary disease) Mother Chronic mental illness Obesity Brother No problems noted. Brother No problems noted. Son ADHD Son ADHD Family/Other Substance use disorder Maternal Grandfather Colon cancer Social History Social History (Updated 10/24/24 @ 08:20 by Elizabeth Santana MD) Household Members: Family Housing: House Are you a primary healthcare economics consultant to a significant other at home: No Do you presently have visiting nurse or other home services: No Alcohol intake: former Patient Tobacco Use Status: Former Tobacco user Tobacco use type: Cigarette Cigarettes Per Day: 7 e-Cigarette/Vaping Use: Currently Using Second Hand Smoke Exposure: No Advance Directives: No Advance Directives Information Provided: Yes service: No Current occupational status: unemployed Cognitive needs: No Hearing needs: No Vision needs: No Physical Exam Exam: Exam: ?General: ??looks age appropriate, tearful ?Resp: ?No wheezing rales rhonchi no stridor moving air well Abd: ?Bowel sounds are present, no tenderness no rebound no rigidity MSK: FROM, strength 5/5 all extremities, deep tendon reflexes +2 bilaterally, ambulatory, no sensory deficits bilateral lower extremities, no lower extremity edema, paraspinal tenderness around L2-L3 area Skin: Warm, dry, intact, ?Neuro: ?Alert and oriented x3, moving upper and lower extremities symmetrically, no obvious facial asymmetry noted, cranial nerves 2-12 intact Vital Signs: Vital Signs: Last Vital Signs Temp 97.2 F 02/27/25 10:40 Pulse 104 H 02/27/25 10:40 Resp 18 02/27/25 10:40 BP 142/80 H 02/27/25 10:40 Pulse Ox 100 02/27/25 10:40 O2 Del Method Room Air 02/27/25 10:40 BMI result Body Mass Index 40.3 Medications Administered Discontinued Medications Generic Name Dose Route Start Last Admin Trade Name Andria PRN Reason Stop Dose Admin Dexamethasone 10 mg 02/27/25 10:59 02/27/25 11:22 Dexamethasone 2 Mg Tablet PO 02/27/25 11:00 10 mg ONCE ONE Administration Diazepam 4 mg 02/27/25 10:59 02/27/25 11:22 Diazepam 2 Mg Tablet PO 02/27/25 11:00 4 mg ONCE ONE Administration Ketorolac Tromethamine 30 mg 02/27/25 10:59 02/27/25 11:23 Ketorolac Tromethamine 30 Mg/Ml Vial IM 02/27/25 11:00 30 mg ONCE ONE Administration Lidocaine 1 patch 02/27/25 10:59 02/27/25 11:22 Lidocaine 4 % Patch Adh..Patch TRANSDERMA 02/27/25 11:00 1 patch ONCE ONE Administration Protocol Medical Decision Making Medical Decision Making MDM Narrative: 11:03 AM 02/27/2025 (Dr. Griffin George): I have high suspicion that this is musculoskeletal pain, spasm, has a history of chronic back pain, although she feels different, last x-ray 2 years ago we will repeat it today to evaluate for any destructive lesions or spondylolisthesis or arthritic changes, no IV drug use no fevers do not suspect infectious etiology and there was no neurologic deficits to suspect spinal epidural abscess or cauda equina 12:09 PM 02/27/2025 (Dr. Griffin George): She is feeling better, urine with slight hematuria she is on her period Differential Diagnosis Differential Diagnoses: The differential diagnosis associated with the presentation includes (Diskitis, osteomyelitis, spinal epidural abscess, cauda equina, musculoskeletal pain) Admission/Observation Consideration of admission/observation: Escalation of care including admission/observation considered Lab Data Labs: Lab Results 02/27/25 Range/Units 11:16 Urine Color Yellow Urine Appearance Clear Urine pH 8.5 (5.0-9.0) Ur Specific [place] 1.025 (1.005-1.025) Urine Protein Trace (Neg-Trace) mg/dL Urine Glucose (UA) Negative (Negative) mg/dL Urine Ketones Trace (Negative) mg/dL Urine Blood Trace H (Negative) Urine Nitrite Negative (Negative) Ur Leukocyte Esterase Negative (Negative) Urine RBC 6-10 H (0-2) /HPF Urine WBC 0-5 (0-5) /HPF Ur Squamous Epith Cells 3-5 (0-2) /HPF Urine Bacteria None Seen (None Seen) Hyaline Casts 0-2 (0-2) /LPF Urine Test NEGATIVE (NEGATIVE) Discharge Plan Discharge Clinical Impression: Lumbar pain Instructions: Acute Low Back Pain (ED) Additional Instructions: X-rays of the back did not reveal any new changes from prior x-rays, urine without any evidence of infection, or chelsy blood, there was microscopic bleeding present which has been present before most prior samples, negative Continue steroids as a Medrol Dosepak starting tomorrow, lidocaine patches 1 patch every 12 hours to the area that hurts the most, and cyclobenzaprine you can take 5-7-1/2 mg every 8 hours for spasm, be very mindful as it can make you drowsy do not mix with any other sedating medications or marijuana or alcohol do not drive while taking this medication, thereafter for additional pain control please follow up with your primary care physician Any other issues or concerns come back to the ER, read handout on acute low back pain attached Prescriptions: New lidocaine [Aspercreme (lidocaine)] 4 % adhesive patch,medicated 1 patch topical DAILY PRN (Reason: pain) Qty: 10 0RF methylprednisolone [Medrol (Lisandro)] 4 mg tablets,dose pack 4 mg PO DAILY Qty: 21 0RF Rx Instructions: Day 1: 24 mg on day 1 administered as 8 mg before breakfast, 4 mg after lunch, 4 mg after supper, and 8 mg at bedtime or 24 mg as a single dose or divided into 2 or 3 doses upon initiation. Day 2: 20 mg on day 2 administered as 4 mg before breakfast, 4 mg after lunch, 4 mg after supper, and 8 mg at bedtime. Day 3: 16 mg on day 3 administered as 4 mg before breakfast, 4 mg after lunch, 4 mg after supper, and 4 mg at bedtime. Day 4: 12 mg on day 4 administered as 4 mg before breakfast, 4 mg after lunch, and 4 mg at bedtime. Day 5: 8 mg on day 5 administered as 4 mg before breakfast and 4 mg at bedtime. Day 6: 4 mg on day 6 administered as 4 mg before breakfast. cyclobenzaprine 5 mg tablet 5 mg PO Q8H PRN (Reason: muscle spasm) 5 Days Qty: 20 0RF No Action Vitamin Plus Low Iron 27 mg iron- 1 mg tablet 1 tab PO DAILY Qty: 100 1RF tretinoin 0.025 % cream topical BEDTIME Stelara 90 mg/mL syringe 90 mg subcut Q12W Patient Comments: every 3mths per albuterol sulfate 90 mcg/actuation HFA aerosol inhaler 2 puff inhalation Q4-6H PRN (Reason: bronchospasm) 30 Days Qty: 6.7 2RF lisdexamfetamine 60 mg capsule 60 mg PO QAM benzonatate 100 mg capsule 100 mg PO BID-TID PRN (Reason: cough) Qty: 14 0RF amoxicillin-pot clavulanate 875-125 mg tablet 1 tab PO BID Qty: 14 0RF clindamycin phosphate 1 % gel 1 appl topical DAILY benzoyl peroxide [Acne Control(benzoyl peroxide)] 10 % cleanser 1 appl topical DAILY albuterol sulfate 90 mcg/actuation HFA aerosol inhaler 2 puff inhalation Q6H PRN (Reason: shortness of breath or wheezing or cough) Qty: 8.5 0RF methylprednisolone 4 mg tablets,dose pack See Rx Instructions PO PER PKG DIR Qty: 21 0RF Rx Instructions: PO PER PKG DIR for 6 days fluticasone propionate 50 mcg/actuation spray,suspension 1 spray intranasal Q24H 90 Days Qty: 48 0RF Rx Instructions: administer into each nostril Print Language: Chinese
[2025-02-27] MEDS: Lidocaine 4 % Patch ADH..PATCH 1 PATCH TRANSDERMA (11:22)
--- OUTSIDE RECORDS SUMMARY | 2025-02-27 11:26 | XMS_ITS | Clinical Summary ---
Author Organization [facility] Address [address] [place] [id number] Phone Care Team Providers Care Binder Stripper Machine Name Role Phone Mimi Starr MD Primary [...] of Asthma, No family history of Sudden /[place] under age 55, No family history of [...] age to complete this topic Care Teams Binder Stripper Machine Relationship Specialty Start Date End Date Mimi Starr MD PCP - General 11/11/16
--- OUTSIDE RECORDS SUMMARY | 2025-02-27 11:27 | XMS_ITS | Encounter Summary ---
Author Organization [facility] Address [address] [place] [id number] Phone Care Team Providers Care Sponge Packer Name Role Phone Mimi Starr MD Primary Care Provider Unavailabl e Encounter Details Date Type Department Care Team (Late st Contact Info) Description 11/09/2010 Documentation [facility] [place] Family Medicine [address] [place] [address] Family Medicine, Physician [facility] [address] [place], [place] [phone] Social History Tobacco Use Types Packs/Day Years [...] on filedocumented in this encounter Care Teams Sponge Packer Relationship Specialty Start Date End Date Mimi Starr MD PCP - General 11/11/16 documented as of this encounter
--- OUTSIDE RECORDS SUMMARY | 2025-02-27 11:27 | XMS_ITS | Encounter Summary ---
Author Organization [facility] Address [address] [place] [address] Phone Care Team Providers Care Replanting Machine Crewman Name Role Phone Mimi Starr MD Primary Care Provider Unavailabl e Encounter Details Date Type Department Care Team (Late st Contact Info) Description 11/17/2016 Conversion Encounter [facility] - [address] [address] Social History Tobacco Use Types Packs/Day Years [...] on filedocumented in this encounter Care Teams Replanting Machine Crewman Relationship Specialty Start Date End Date Mimi Starr MD PCP - General 11/11/16 documented as of this encounter
[2025-02-27 11:33] LABS: UPreg QC Valid YES
[2025-02-27 11:35] LABS: Appearance Urine Clear; Glucose Urine UA Negative (Negative); PH 8.5 (5.0-9.0); Specific Gravity - Urine 1.025 (1.005-1.025); UMIC TRIGGER UACC YES
[2025-02-27 12:12] VITALS: BP 147/77; PULSE 97; RESP 18; TEMP 36.7; O2SAT 100
== END 2025-02-27 12:16 | disposition home or self-care (01) ==
PROVIDERS: Emergency Provider Emergency Medicine; PCP Internal Medicine
DX: M54.50 Low back pain, unspecified (principal); Z91.018 Allergy to other foods
CPT/HCPCS: 72100; 81001; 81025; 96372; 99283; 99284; J1885; J8540